=== PATIENT | male | born 1965 | race African-American/Black ===

== ENCOUNTER 2016-12-29 20:32 | Inpatient (IN) | payer OTHER ==
[~2016-12-29] VITALS: Ht 177.8 cm; Wt 77.4 kg
--- NOTE | 2016-12-29 20:35 | NUR ---
BIBA ON PEER APPROX 40 100MG SEROQUEL TABS AND +ETOH. UPON ARRIVAL PT IN HANDCUFFS, DROWSY BUT AROUSABLE, EASILY AGITATED. YELLING PROFANITIES AT STAFF WITH SLURRED SPEECH. PER EMS, PT HIGHLY COMBATIVE AND SPITTING. UNABLE TO OBTAIN FURTHER HPI FROM PT
--- NOTE | 2016-12-29 20:39 | ED AMS/SEIZURE/WEAK/DIZZY ---
History of Present Illness General Chief Complaint: ETOH/Drug Related Complaint Stated Complaint: BIBA SI, COMBATIVE, +ETOH Source: patient Exam Limitations: no limitations Vital Signs & Intake/Output Vital Signs & Intake/Output Vital Signs Date Time Temp Pulse Resp B/P B/P Pulse O2 O2 Flow FiO2 Mean Ox Delivery Rate 12/30 0300 96.3 77 18 139/82 05 0248 30 12/30 0048 98.6 96 18 140/85 100 Ventilator 40% 12/30 0039 40 12/30 0018 98.7 109 18 136/89 100 Ventilator 40% 12/29 2253 127 28 123/85 98 BIPAP 40% 12/29 2230 99 BIPAP 40% 12/29 2223 133 32 131/85 99 Non 100% ReBreather 12/29 2217 140 99 12/29 2152 141 22 143/96 98 Non 100% ReBreather 12/30 2119 100 24 129/81 99 Non 100% ReBreather 12/29 2052 98.1 107 16 137/91 99 Nasal 2.0L Cannula 12/29 2044 100 Non ReBreather 12/30 2035 108 16 100 Non ReBreather ED Intake and Output 12/30 0000 12/29 1200 Intake Total Output Total 50 Balance -50 Output, Urine 50 Allergies Coded Allergies: Penicillins (UNKNOWN 08/04/16) Triage Nurses Notes Reviewed? yes Onset: Gradual Duration: hour(s): Timing: single episode today Injury Environment: home Severity: moderate Modifying Factors: Improves With: rest. Associated Symptoms: agitation HPI: 51 yo gentleman presents with mental status change. Per the medics, "He called a friend who said he wanted to kill himself." Pt was found with empty "nips" of liquor and an empty pill bottle of seroquel with approximately 40 pills of 100mg each left based on his date of fill. Per the medics, "He was spitting at us and was really agitated." Past History Travel History Traveled to [place] past 21 day No Medical History Any Pertinent Medical History? see below for history Psychiatric: anxiety, depression, psychosis Surgical History Surgical History: non-contributory Psychosocial History Who do you live with Patient/Self What is your primary language French Family History Hx Contributory? No Review of Systems Review of Systems Constitutional: Reports: no symptoms. EENTM: Reports: no symptoms. Respiratory: Reports: no symptoms. Cardiovascular: Reports: no symptoms. GI: Reports: no symptoms. Genitourinary: Reports: no symptoms. Musculoskeletal: Reports: no symptoms. Skin: Reports: no symptoms. Neurological/Psychological: Reports: no symptoms. Hematologic/Endocrine: Reports: no symptoms. Immunologic/Allergic: Reports: no symptoms. All Other Systems: Reviewed and Negative Physical Exam Physical Exam General Appearance: well developed/nourished, mild distress, intoxicated, agitated, belligerent, arms flailing Head: atraumatic, normal appearance Eyes: Bilateral: normal appearance. Ears, Nose, Throat: normal pharynx, normal ENT inspection Neck: normal inspection, supple, full range of motion Respiratory: normal breath sounds, chest non-tender, no respiratory distress, quiet respiration, lungs clear Cardiovascular: regular rate/rhythm Gastrointestinal: normal bowel sounds, soft, non-tender, no organomegaly Back: normal inspection, normal range of motion Extremities: normal range of motion, evidence of injury Neurologic/Psych: no motor/sensory deficits, awake, alert Skin: intact, normal color, warm/dry Core Measures ACS in differential dx? No CVA/TIA Diagnosis: No Severe Sepsis Present: No Septic Shock Present: No Progress Differential Diagnosis: alcohol intoxication, polysubstance abuse vs other. Plan of Care: Orders Procedure Date/time Status Nothing by Mouth 12/30 B Active EKG 12/30 0800 Active ARTERIAL BLOOD GAS (GEN) 12/30 0600 Active CBC WITHOUT DIFFERENTIAL 12/30 0600 Complete Wound Care/Dressing 12/30 033 Active Weight 12/30 0333 Active VTE Mechanical Prophylaxis 12/30 033 Active Vital Signs 12/30 033 Active Turn and Reposition 12/30 033 Active Drains/Tubes 12/30 033 Active Teach/Educate 12/30 033 Active Skin Integrity Protocol 12/30 033 Active Skin/Pressure Ulcer Assess (Sk 12/30 033 Active Precautions 12/30 033 Active Pain Treatment and Response 12/30 033 Active Nutritional Intake, Monitor 12/30 033 Active Isolation 12/30 033 Active CIWA 12/30 033 Active Patient Care Conference 12/30 0333 Active Activity/Ambulation 12/30 033 Active TROPONIN LEVEL 12/30 030 Active ICU LAB BUNDLE 12/30 030 Active CREATINE PHOSPHOKINASE 12/30 030 Active EKG 12/30 0300 Active VENTILATOR PARAMETERS 12/30 0253 Complete VRE ACTIVE SURVIELLANCE 12/30 0239 Active ACTIVE SURVEILLANCE NARES 12/30 0239 Active LACTIC ACID 12/30 0135 Complete ARTERIAL BLOOD GAS (GEN) 12/30 0130 Active CIWA 12/30 0110 Active LOWER RESPIRATORY CULTURE 12/30 0049 Active URINALYSIS 12/30 0027 Complete Pathway - chart 12/30 0024 Active Lab Add-on Test 12/30 0022 Active VENTILATOR PARAMETERS 12/30 0015 Complete EKG 12/30 0011 Active CULTURE,URINE 12/30 0010 Active TRC EVALUATION (GEN) 12/30 0009 Active OXYGEN SETUP (GEN) 12/30 0009 Active Saline Lock 12/30 0009 Active Pathway - chart 12/30 0009 Active House Staff 12/30 0009 Active XRY-PORTABLE CHEST XRAY 12/30 UNK Active Lab Add-on Test 12/30 UNK Active VTE Mechanical Prophylaxis 12/30 UNK Complete Patient Safety Monitor 12/30 UNK Complete Seizure Precautions 12/30 UNK Active Restraint- Medical 12/30 UNK Active Nursing Misc 12/30 UNK Active NIH Stroke Scale 12/30 UNK Active NGT 12/30 UNK Active Braden Coma Scale 12/30 UNK Active Eckert, Insertion/Removal/Asses 12/30 UNK Active ARTERIAL BLOOD GAS (GEN) 12/29 2315 Active Patient Data 12/29 2303 Active Intake & Output 12/29 2256 Active Saline Lock 12/29 225 Active Misc Message 12/29 2254 Active ED Holding Orders 12/29 2254 Active Vital Signs 12/29 2254 Active Code Status 12/29 2254 Active Admit to inpatient 12/29 2253 Active LACTIC ACID 12/29 2235 Complete Add-on Test (ER Only) 12/29 2229 Active ARTERIAL BLOOD GAS (GEN) 12/30 2135 Complete Restraint- Discontinue 12/29 2129 Active PHOSPHORUS 12/29 2049 Complete MAGNESIUM 12/29 2049 Complete CREATINE PHOSPHOKINASE 12/29 2049 Complete Restraint- Behavioral (Order) 12/29 2044 Complete Continuous Observation Monitor 12/29 2044 Complete ED CRISIS PSYCH CONSULT 12/29 2044 Active URINE DRUG SCREEN FOR ER ONLY 12/29 2038 Complete ACETOMINOPHEN 12/29 2038 Complete TROPONIN LEVEL 12/29 2038 Complete SALICYLATE 04/30 2039 Complete ETHANOL 12/29 2038 Complete COMPREHENSIVE METABOLIC PANEL 12/29 2038 Complete CBC WITHOUT DIFFERENTIAL 12/29 2038 Complete EKG 12/29 2038 Active BIPAP 12/29 UNK Complete Current Medications Sig/Earline Start time Last Medication Dose Stop Time Status Admin Pantoprazole Sodium 40 MG DAILY 12/30 1000 AC (Protonix) Heparin Sodium 5,000 UNIT Q8 12/30 0600 AC (Porcine) Acetaminophen 1,000 MG Q6P PRN 12/30 0030 AC (Ofirmev) Lorazepam 2 MG Q4P PRN 12/30 0030 AC (Ativan) Sodium Chloride 1,000 ML Q13H 12/30 003 AC 12/30 (Normal Saline 0.9%) 0046 Laboratory Tests 12/30/16 030: Troponin I Cancelled 12/30/16 030: Lactic Acid 2.4 H 12/30/16 030: Anion Gap 13, Estimated GFR > 60, Glucose 93, Calcium 8.0 L, Phosphorus 3.0, Magnesium 2.0, Total Bilirubin 0.6, AST 24, ALT 31, Creatine Kinase 549 H, Troponin I Pending, Albumin 3.3 L, CBC w Diff NO MAN DIFF REQ, RBC 4.06 L, MCV 101.7 H, MCH 34.2 H, RDW 13.0, MPV 8.0, Gran % 63.9, Lymphocytes % 24.8, Monocytes % 6.3, Eosinophils % 4.7, Basophils % 0.3, Absolute Granulocytes 4.2, Absolute Lymphocytes 1.6, Absolute Monocytes 0.4, Absolute Eosinophils 0.3, Absolute Basophils 0, PUBS MCHC 33.7 12/30/16 0205: pH 7.31 L, pCO2 43, pO2 197 H, HCO3 21, ABG O2 Sat (Measured) 97.0, P-50 (Temp Corrected) Y, Carboxyhemoglobin 1.6, O2 Concentration % 40%, Temperature 98.7, Respiration Rate 18, O2 Delivery Method ESPRIT, Vent Mode AC, Expiratory Pressure 5, Tidal Volume 500, Phlebotomy Draw Site RIGHT RADIAL 12/30/16 0110: Urine Color STRAW, Urine Clarity CLEAR, Urine pH 5.5, Ur Specific [place] 1.025, Urine Protein NEG, Urine Ketones NEG, Urine Nitrite NEG, Urine Bilirubin NEG, Urine Urobilinogen 0.2, Ur Leukocyte Esterase NEG, Ur Microscopic SEDIMENT EXAMINED, Urine RBC RARE, Urine WBC RARE, Ur Epithelial Cells RARE, Urine Bacteria FEW H, Urine Hemoglobin LARGE H, Urine Glucose NEG 12/30/16 0014: Phosphorus Cancelled 12/29/16 2319: Lactic Acid 2.2 H 12/29/162309: pH 7.36, pCO2 38, pO2 121 H, HCO3 21, ABG O2 Sat (Measured) 96.0, P-50 (Temp Corrected) Y, Carboxyhemoglobin 2.4, O2 Concentration % 40%, Temperature 98.0, Respiration Rate 28, O2 Delivery Method BIPAP, Vent Mode ST, Expiratory Pressure 6, Inspiratory Pressure 20, Phlebotomy Draw Site RIGHT RADIAL 12/29/162144: pH 7.22 *L, pCO2 65 *H, pO2 183 H, HCO3 26, ABG O2 Sat (Measured) 99.0, P-50 ( Temp Corrected) Y, Carboxyhemoglobin 3.2, O2 Concentration % 100, Temperature 98.0, O2 Delivery Method NRB, Phlebotomy Draw Site RIGHT RADIAL 12/29/162101: Urine Opiates Screen < 100.00, Methadone Screen < 40, Barbiturate Screen < 60, Ur Phencyclidine Scrn < 6.00, Amphetamines Screen < 100, U Benzodiazepines Scrn > 800 H, Urine Cocaine Screen < 50, Urine Cannabis Screen > 80.00 H 12/29/162049: Anion Gap 16, Estimated GFR > 60, BUN/Creatinine Ratio 11.3, Glucose 97, Calcium 9.2, Phosphorus 3.2, Magnesium 2.4 H, Total Bilirubin 0.6, AST 29, ALT 30, Alkaline Phosphatase 62, Creatine Kinase 568 H, Troponin I < 0.01, Total Protein 7.6, Albumin 4.5, Globulin 3.1, Albumin/Globulin Ratio 1.5, CBC w Diff NO MAN DIFF REQ, RBC 4.69 L, MCV 100.0 H, MCH 34.2 H, RDW 12.7, MPV 8.0, Gran % 48.0, Lymphocytes % 38.9, Monocytes % 6.0, Eosinophils % 6.5 H, Basophils % 0.6, Absolute Granulocytes 3.2, Absolute Lymphocytes 2.6, Absolute Monocytes 0.4 , Absolute Eosinophils 0.4, Absolute Basophils 0, PUBS MCHC 34.3, Salicylates < 1.0, Acetaminophen < 10.0 L, Serum Alcohol 215.0 Microbiology 12/30 0258 UPPER RESP: Surveillance Culture - RECD 12/30 0258 GI: Surveillance Culture - RECD 12/30 0115 URINE ROUT: Urine Culture - RECD 12/31 39 LOWER RESP: Respiratory Culture - RECD 12/31 39 LOWER RESP: Gram Stain - RECD Diagnostic Imaging: Viewed by Me: Radiology Read, CT Scan. Discussed w/RAD: Radiology Read, CT Scan. Radiology Impression: head ct... neg.. full report below. CXR Impression: no acute abnormality, no infiltrates, normal size heart, normal mediastinum Initial ED EKG: sinus tachycardia Comments: PATIENT: JOSE ALFREDO RODRIGUES PRESENT AGE: 51 PATIENT ACCOUNT NO: [id number] : 65 LOCATION: [facility] ORDERING PHYSICIAN: JACKY PEREZ MD SERVICE DATE: 12/29/16 EXAM TYPE: CAT - CT HEAD WO IV CONTRAST EXAMINATION: CT HEAD WITHOUT CONTRAST CLINICAL INFORMATION: Mental status change COMPARISON: None TECHNIQUE: Contiguous axial imaging was performed from the skull base to vertex without intravenous administration of contrast. DLP: 610.15 mGy-cm FINDINGS: There is no evidence of acute intracranial hemorrhage or territorial infarction. No abnormal mass effect or midline shift is seen. Nascimento to white matter differentiation is well preserved. No extra-axial fluid collections are identified. The ventricles are normal in size. There is no abnormal attenuation within the brain parenchyma. The osseous structures and soft tissues are normal. There is extensive opacification of the ethmoid air cells bilaterally. The mastoid air cells are well-aerated. IMPRESSION: No acute intracranial pathology. DICTATED BY: AQUILES CHARLES MD DATE/TIME DICTATED:12/30/16322 WATCH AND CLOCK REPAIR CLERK:WESLEY DATE/TIME TRANSCRIBED:12/30/16322 CONFIDENTIAL, DO NOT COPY WITHOUT APPROPRIATE AUTHORIZATION. <Electronically signed in Other Vendor System> SIGNED BY: AQUILES CHARLES MD 12/30/16328 PATIENT: JOSE ALFREDO RODRIGUES PRESENT AGE: 51 PATIENT ACCOUNT NO: [id number] : 65 LOCATION: [facility] ORDERING PHYSICIAN: JACKY PEREZ MD SERVICE DATE: 12/29/16 EXAM TYPE: RAD - XRY-PORTABLE CHEST XRAY EXAMINATION: XR PORTABLE CHEST CLINICAL INFORMATION: Dyspnea. COMPARISON: None TECHNIQUE: Portable frontal view of the chest was obtained. 10:36 PM FINDINGS: A portion of the right side of the chest is not included in study limiting study. No acute change of the visualized chest. Lungs are clear. No pulmonary vascular congestion. Heart size is normal. Cardiac and mediastinal contours are normal. IMPRESSION: No acute abnormality of the chest. DICTATED BY: ANAIS WIGGINS MD DATE/TIME DICTATED:12/29/162246 WATCH AND CLOCK REPAIR CLERK:WESLEY DATE/TIME TRANSCRIBED:12/29/162246 CONFIDENTIAL, DO NOT COPY WITHOUT APPROPRIATE AUTHORIZATION. <Electronically signed in Other Vendor System> SIGNED BY: ANAIS WIGGINS MD 12/29/162250 Departure Departure Disposition: STILL A PATIENT Condition: Stable Clinical Impression Primary Impression: Polysubstance overdose Secondary Impressions: Respiratory acidosis Referrals: UNKNOWN (PCP) Departure Forms: Customer Survey General Discharge Information Admission Note Spoke With: KYLE GOODWIN MD Documentation of Exam: Documentation of any treatments & extenuating circumstances including Concerns Regarding Discharge (functional status, medication knowledge or non-compliance, living conditions, etc.) that warrant an admission rather than observation: pt with respiratory acidosis, polysubstance abuse (benzos, etoh, likely seroquel )... now tolerating bipap, otherlabs benign.... discussed with poison control... seroquel peaks 2 hours, with 1/2 life of 3-6 hours, although pharmacokinetics are disrupted given the amount of his suspected overdose. will repeat abg. Critical Care Note Critical Care Note Critical Care Time: 30-74 min
--- NOTE | 2016-12-29 20:45 | NUR ---
PT MEDICATED WITH 10MG ZYPREXA IM IN THE LEFT THIGH.
--- NOTE | 2016-12-29 20:45 | NUR ---
PT STATED TO MULTIPLE STAFF MEMBERS "IF YOU LET ME GO I WILL DO SOMETHING BAD" PT INCREASINGLY AGITATED, MOVING LEGS IN A KICKING MOTION TOWARDS EMS. 4 POINT HARD RESTRAINTS INITIATED PER DR. PEREZ
[2016-12-29 20:56] LABS: ABSOLUTE BASOPHIL COUNT 0 /CUMM (0.0-0.2); ABSOLUTE EOSINOPHIL COUNT 0.4 /CUMM (0.0-0.7); ABSOLUTE GRANULOCYTE CT 3.2 /CUMM (1.4-6.5); ABSOLUTE LYMPH COUNT 2.6 /CUMM (1.2-3.4); ABSOLUTE MONOCYTE COUNT 0.4 /CUMM (0.10-0.60); BASOPHIL % 0.6 % (0.0-2.0); EOSINOPHIL % 6.5 % (0-5); HEMATOCRIT 46.9 % (42-52); MEAN CORPUSCULAR HGB 34.2 PG (27.0-31.0); MEAN CORPUSCULAR HGB CONC 34.3 G/DL (33.0-37.0); PLATELET COUNT 202 /CUMM (130-400); RBC DISTRIBUTION WIDTH 12.7 % (11.5-14.5); RED BLOOD CELL CT 4.69 /CUMM (4.70-6.10); WHITE BLOOD CELL COUNT 6.6 /CUMM (4.8-10.8)
--- NOTE | 2016-12-29 21:43 | NUR ---
2124 PT WITH POOR AIR EXCHANGE. MEDICATED WITH 0.8 MG NARCAN WITH NO EFFECT, REMAINS AROUSABLE TO BRISK TACTILE STIMULATION ONLY, FOLLOWED UP WITH ADDITIONAL 1.2 MG NARCAN WITH NO IMPROVEMENT. NASAL TRUMPET PLACED IN LEFT NARE WITH NO IMPROVEMENT. DR PEREZ AT BEDSIDE. 2139 PT MEDICATED WITH ADDITIONAL 2 MG NARCAN. HR UP TO 140'S NO IMPROVEMENT IN AIR EXCHANGE. JAW THRUST MANEUVER WITH GOOD EFFECT. BETTER AIR EXCHANGE HOB REMAINS ELEVATED. ABG DONE BY RT
--- NOTE | 2016-12-29 22:00 | NUR ---
ORALPHARYNGEAL AIRWAY PLACED WITH LITTLE TO NO EFFECT. DR. PEREZ MADE AWARE. JAW THRUST CONTINUES TO BE EFFECTIVE. PT PLACED ON BIPAP, 20/6 RR 28. IMPROVED AIR FLOW. PT REPOSITIONED IN HIGH FOWLERS WITH GOOD EFFECT. REMAINS OBTUNDED
--- NOTE | 2016-12-29 22:44 | NUR ---
PTS 1 OF 1 BELONGINGS BAG PLACED IN CLOSET AND LABELED, COPY OF PEC IN PAPER CHART, PEC PLACED IN PEER BOX AT QUARTER INSPECTOR
--- NOTE | 2016-12-29 22:51 | RADIOLOGY REPORT ---
EXAMINATION: XR PORTABLE CHEST CLINICAL INFORMATION: Dyspnea. COMPARISON: None TECHNIQUE: Portable frontal view of the chest was obtained. 10:36 PM FINDINGS: A portion of the right side of the chest is not included in study limiting study. No acute change of the visualized chest. Lungs are clear. No pulmonary vascular congestion. Heart size is normal. Cardiac and mediastinal contours are normal. IMPRESSION: No acute abnormality of the chest.
--- NOTE | 2016-12-29 23:16 | NUR ---
PER DR PEREZ PT DOES NOT NEED AN A SECOND SITE FOR IV ACCESS.
--- NOTE | 2016-12-29 23:22 | NUR ---
DR. ARIZMENDI AT BEDSIDE
--- NOTE | 2016-12-29 23:33 | NUR ---
THIS RN RECIEVED REPORT FROM HENRIK TYLER, DR GARCIA AND DR GOODWIN IN FOR EVAL
--- NOTE | 2016-12-29 23:33 | NUR ---
PT MEDICATED WITH NS LITER #1 BOLUS INFUSING.
--- NOTE | 2016-12-29 23:42 | NUR ---
CRITICAL TEST RESULTS [id number] JOSE ALFREDO RODRIGUES 51 M TESTS AND RESULTS: LACTIC 2.2 Results received and read back by: KURT ARRINGTON Results received date and time: 12/29/16 2342 The following provider was notified of the results, and read the results back: [facility] Notified date and time: 12/29/16 at 2342
--- NOTE | 2016-12-29 23:47 | NUR ---
HOUSE STAFF IN FOR EVAL
[2016-12-30] VITALS (10 sets, daily range): BP systolic 118–144; BP diastolic 64–90
--- NOTE | 2016-12-30 00:11 | NUR ---
Emergency Dept UC Admit Note: To be admitted to [facility] by DR. GOODWIN with RESP FAILURE as the diagnosis, to ICU [id number] location. Nursing Commercial Artist and admitting notified 12/30/16 at 0798
--- NOTE | 2016-12-30 00:19 | NUR ---
PT INTUBATED BY RESIDENT SHANELLE, ETT 8.0 AT 24 AT RIGHT LIP. RATE 18, 500 TIDAL VOLUME, 40% 02 AND [address] CARLY RT AT BEDSIDE
--- NOTE | 2016-12-30 00:26 | History & Physical ---
ADELFO BUSTAMANTE,[facility] 12/30/16 0025: General Information and HPI Statement: I have seen and personally examined JOSE ALFREDO RODRIGUES and documented this H&P. The patient is a 51 year old M who presented with a patient stated chief complaint of [unresponsiveness]. Source of Information: old records, EMS Exam Limitations: unable to give history, intoxication History of Present Illness: Mr. Rodrigues is 51-year-old male with past medical history significant for depression BIBA after he was found unresponsive in his home. Patient's friend called EMS to report that Mr. Rodrigues called him and told him "he wanted to kill himself." Patient was found in bed and next to him there were empty "nips" of liquor and an empty pill bottle of seroquel with approximately 40 pills of 100mg. Patient has no contact information and no further history was obtainable. Allergies/Medications Allergies: Coded Allergies: Penicillins (UNKNOWN 08/04/16) Past History Travel History Traveled to [place] past 21 day No Medical History Any Pertinent Medical History? unobtainable Psychiatric: anxiety, depression, psychosis Isolation History: Standard Surgical History Surgical History: non-contributory Past Family/Social History Psychosocial History Past Psychosocial History Unobtainable at this time Review of Systems Review of Systems Constitutional: Reports: see HPI. Exam & Diagnostic Data Last 24 Hrs of Vital Signs/I&O Vital Signs Date Time Temp Pulse Resp B/P B/P Pulse O2 O2 Flow FiO2 Mean Ox Delivery Rate 12/30 0048 98.6 96 18 140/85 100 Ventilator 40% 12/30 0039 40 12/30 0018 98.7 109 18 136/89 100 Ventilator 40% 12/29 2252 127 28 123/85 98 BIPAP 40% 12/29 2229 99 BIPAP 40% 12/29 2222 133 32 131/85 99 Non 100% ReBreather 12/29 2217 140 99 12/29 2152 141 22 143/96 98 Non 100% ReBreather 12/30 2119 100 24 129/81 99 Non 100% ReBreather 12/29 2052 98.1 107 16 137/91 99 Nasal 2.0L Cannula 12/29 2044 100 Non ReBreather 12/30 2035 108 16 100 Non ReBreather Intake & Output 12/30 0800 12/30 0000 04/30 1600 Intake Total Output Total 50 Balance -50 Output, Urine 50 Physical Exam General Appearance avarage built afracian polish male unresponsive to painful stimulus Skin No Rashes, No Breakdown, No Significant Lesion Skin Temp/Moisture Exam: Warm/Dry HEENT Atraumatic, pinpoint pupils Neck Supple, No JVD Lymphatic no cervical lymphadenopathy Cardiovascular Regular Rate, Normal S1, Normal S2, No Murmurs Lungs Clear to Auscultation, Normal Air Movement Abdomen Normal Bowel Sounds, Soft, No Tenderness Neurological No reflexes Babinski sign negative Extremities No Clubbing, No Cyanosis, No Edema, Normal Pulses Assessment/Plan Assessment: Mr. Rodrigues is 51-year-old male with past medical history significant for depression BIBA after he was found unresponsive in his home which is apparently a suicide attempt. On admission Vital signs temperature 98.1, pulse 107, blood pressure 137/91, respirations 16 on nonrebreather 2 L saturation 100% Labs WBC 6.6, H&H 16.1/46.9, platelet 202, sodium 147, potassium 3.9, chloride 109, bicarbonate 22, BUN/creatinine 9/0.8, glucose 97, anion gap 16, liver function test within normal, creatinine kinase 568, urine toxicology positive for benzo and cannabis, ABG on admission pH 7.22, carbon dioxide 65, oxygen 183 Imaging chest x-ray didn't show any acute abnormality of the chest Problem list #Suicide attempt ingestion of 40 tabs of Seroquel #Acute hypercapnic respiratory failure due to intoxication -Admit to ICU -Patient had Narcan IV total of 5 mg in ED in addition to olanzapine 10 mg -We will intubated to secure airway -Repeat ABG in the a.m. -Neuro exam Q4 hours -OJ tube placement -Repeat EKG to ensure proper placement -Eckert catheter placement -Serial EKG every 8 to monitor QTC -ICU bundle and CBC in a.m. -Obtain magnesium and phosphorus now -Start proton pump inhibitor 40 mg IV -Trend lactic acidosis mostly alcohol-related -Patient is unresponsive to painful stimuli, once he is awake start Ativan 2 mg IV every 6 -Consider banana bag -IV fluid normal saline rate of 100 mL/h -Consider echocardiogram given history of alcoholism to rule out alcoholic cardiomyopathy -Obtain CT head #Code full #Diet nothing by mouth #DVT prophylaxis heparin subcutaneous As Ranked By This Provider Problem List: 1. Depression 2. Suicide attempt by drug ingestion Core Measures/Miscellaneous Acute Coronary Syndrome ACS Diagnosis: No Cerebrovascular Accident CVA/TIA Diagnosis: No Congestive Heart Failure CHF Diagnosis: No Venous Thromboembolism VTE Risk Factors: Age > 40 [facility] prophylaxis d/t: No contraindications No VTE Pharm Prophylaxis d/t: No contraindications VTE Diagnosis: No VTE Type: NONE VTE Confirmed by (Test): NONE Severe Sepsis Severe Sepsis Present: No Septic Shock Septic Shock Present: No Miscellaneous Documentation Attending Case Discussed With: KYLE GOODWIN MD Primary Care Physician: UNKNOWN Patient sees these Specialists Unknown Level of Patient Care: Critical Care (CRI) OLE JOHNSON 12/30/16 0110: Resident Review Statement Resident Statement: examined this patient, discussed with post graduate internship, agreed with post graduate internship, discussed with nursing Other Findings: is a 51 yo man with PMHx significant for schizophrenia, delusion, depression, anxiety, suicidal ideation last was 2015 with admission to [facility] with a c/o of AMS. When we arrived to assess and examin the patient he was unresponsive, sternal was done at bedside but he was unresponsive at all, he was on Bipap when admitting team arrived. Based on the information that we provided from the nursing stuff and ED physician patient was brought by EMS, Per the medics, "He called a friend who said he wanted to kill himself."Pt was found with empty "nips" of liquor and an empty pill bottle of seroquel with approximately 40 pills of 100mg each left. According to the nursing stuff, he was combative on arrival and he was on agonal breathing. He was medicated with a total of 4mg IV Narcan with no improvement, he was also given 10mg IM Zyprexa. ABG was done at ED which showed acute hypercarbic respiratory failure (7.22, 65, 183, 26) after Bipap ABG improved to (7.36, 38, 121, 21) However, he remains unresponsive and his airway unsecure, both eye was pinpoint, nonreactive to light, the decision was made to intubate the patient, project design engineer and respiratory therapiest was called, patient intubated successfuly, CXR confirmed the location of ET tube. Ventilatory setting AC mode, 18, 500, 40, 5. Off note, there is no contact information provided for a family member or a friend to get more information about patient's current issue. Pertinent labs: CK: 568, Troponin 1st set -ve Toxicology:+ve for benzo, and cannabis, alcohol level 215. LA: 2.2 Imaging, examination as above Patient ingested seroquel which is strongly associated with respiratory depression, depressed mental status and hypotension compared to other antipsychotic Assessment: #Acute hypercarbic respiratory failure 2/2 benzo/seroquel overdose #Metabolic encephalopathy #Lactic acidosis #Mildly elevated CK #Suicidal ideation #Hx. of schizophrenia, delusion, depression and anxiety Plan: Admission to ICU Neurocheck Q4hr Will order EKG for now, at 3am and 8am to monitor QTc Will continue hydration with IV NS @75ml/min Will order 2mg IV Ativan Q4 PRN (For sedation) Will repeat all labs at am (ICU lab bundle, CBC, CK, Mg, Po4) Cycle troponin and EKG Intensive care team consult at am Will trend LA IV protonix DVT ppx. SC heparin Full code [id number] 12/30/16 0253: Attending MD Review Statement Attending Statement Attending MD Statement: examined this patient, discuss w/resident/PA/BAG TURNER, agreed w/resident/PA/BAG TURNER, reviewed EMR data (avail), reviewed images, amended to note Attending Assessment/Plan: CC: SI, COMBATIVE PMH : unknown ? depression Patient was brought in through EMS when patient's friend called in for patient having suicidal ideation. Patient may have Taken approximately 40 tablets of 100 mg Seroquel each, along with alcohol. When patient was brought in ER he was drowsy, agitated, combative, yelling at staff, spitting and slurred speech. When we saw patient he was unresponsive to sternal rub, no further history available. Vitals: Afebrile, pulse initially 100-140, blood pressure 108/80, improved with hydration to 143/96, patient was started on nonrebreather was having apneic spells in between. On exam: Pinpoint pupils, not responding to multiple sternal drops, no JVD, no lymphadenopathy, CVS: S1-S2, RRR, tachycardia. RS: Clear to auscultate bilaterally. Abdomen: Soft, nontender, nondistended bowel sounds present. Labs: WBC 6.6, hemoglobin 16.1, MCV 100, platelet 202, sodium 147, chloride 109, bicarbonate 22, anion gap 16, creatinine 0.8, glucose 97, lactate 2.2, creatinine kinase 568 U tox positive for benzodiazepines, THC. Serum alcohol 215 ABG at arrival 7.22/65/183/26 on NRB One hour on BiPAP 7.36/38/121/21 on 40%, rr 28 , 20/6 CXR: No acute abnormality A and P According to charts and EMS report, patient had suicidal ideation and attempt was found with empty bottle of Seroquel, alcohol around him. In ER patient was very aggressive, agitated, combative, spitting on people's faces. He was given 3 doses of naloxone and one dose of 10 mg olanzapine without much response. Poison control was called from ER. When we saw the patient he was on BiPAP, his head stabilized with tapes so that he doesn't move with BiPAP as he was having apneic spells with head movement. He had pinpoint pupils and was not responding to sternal rub. Called anesthesia for intubation to protect his airways. When BiPAP was removed lot of secretions around his mouth, patient obviously not protecting his airway and secretions. Intubation was uneventful. Patient's blood pressure was in 100s / 60s with heart rate in 140s, responded to 2 L IV NS bolus. # Hypercapnic respiratory failure # Acute intoxication # Toxic Encephalopathy # Suicidal ideation # rhabdomyolysis - Admit to ICU - Close monitoring of vitals - Continue vent setting AC at 500/18/40% with PEEP of 5 - Repeat ABG in one hour, increase or decrease the respiratory rate according to pH, then repeat ABG at 6 AM - Place OG tube, Eckert catheter - Post intubation x-ray - Continue maintenance fluid normal saline at 75- 100 mL after 2 L bolus - IV Protonix 40 mg daily, held in elevation to 30, oral care, chest x-ray in a.m. - If fever spike, consider aspiration as possibility and start Unasyn if required - Repeat lactic acid -Strict I's and O's - One-on-one sitter - Neurochecks - Seizure precaution - DVT prophylaxis - When necessary Ativan 1-2 mg pushes if patient wakes up on ventilator - If more than 2 pushes required start Ativan drip - EKG every 4 hour 3 for QTc interval - CBC, BMP, LFT, CPK in a.m. - Magnesia and phosphorus to the sample in lab now - Consult critical care TTS 45 min
--- NOTE | 2016-12-30 00:46 | NUR ---
PT MEDICATED WITH NS LITER #3 INFUSING AT 75ML/HR PER EMAR.
--- NOTE | 2016-12-30 01:07 | NUR ---
18 AMHARIC PORTILLO PLACED BY THIS RN WITH URINE OUTPUT 445ML/HR. URINE TRIO SENT TO LAB BY THIS RN.
--- NOTE | 2016-12-30 01:23 | NUR ---
SECOND IV EST #18 LEFT FOREARM.
--- NOTE | 2016-12-30 01:32 | RADIOLOGY REPORT ---
EXAMINATION: XR PORTABLE CHEST CLINICAL INFORMATION: Shortness of breath, unresponsive, assess endotracheal tube placement COMPARISON: 12/29/2016 TECHNIQUE: Portable frontal view of the chest was obtained. FINDINGS: Endotracheal tube tip lies approximately 4 cm above the kaleb. Lung volumes are symmetric. Linear left basilar atelectasis is noted. No dense consolidation is seen. No appreciable pneumothorax, though the left apex is not fully included on the image. No significant pleural effusion. The cardiac silhouette is mildly prominent, which may be accentuated by technique. No acute osseous findings are seen. IMPRESSION: Endotracheal tube tip approximately 4 cm above the kaleb. Linear left basilar atelectasis.
--- NOTE | 2016-12-30 02:14 | NUR ---
REPORT GIVEN TO HENRIK LUNA, THIS RN WILL TRANSPORT PT TO CT SCAN THEN UP TO THE FLOOR.
--- NOTE | 2016-12-30 02:56 | Admission Certification ---
Admission Certification Certification Statement - As attending physician, I certify that at the time of - admission, based on clinical presentation, severity of - symptoms, need for further diagnostic testing and - therapeutic interventions, and risk of adverse outcomes - without in-hospital treatment, in my clinical assessment, - this patient requires an acute hospital stay for a minimum - of two nights or longer. I have also considered psychsocial - factors such as support system, advanced age, financial - issues, cognitive issues, and failed out-patient treatments, - past re-admission history, safety of patient, and lack of - compliance as applicable. Specific rationale supporting this admission is: Acute respiratory failure secondary to intoxication, suicidal ideation, toxic encephalopathy
[2016-12-30 03:20] LABS: ABSOLUTE BASOPHIL COUNT 0 /CUMM (0.0-0.2); ABSOLUTE EOSINOPHIL COUNT 0.3 /CUMM (0.0-0.7); ABSOLUTE GRANULOCYTE CT 4.2 /CUMM (1.4-6.5); ABSOLUTE LYMPH COUNT 1.6 /CUMM (1.2-3.4); ABSOLUTE MONOCYTE COUNT 0.4 /CUMM (0.10-0.60); BASOPHIL % 0.3 % (0.0-2.0); EOSINOPHIL % 4.7 % (0-5); GRANULOCYTE % 63.9 % (42.2-75.2); MEAN CORPUSCULAR HGB 34.2 PG (27.0-31.0); MEAN CORPUSCULAR HGB CONC 33.7 G/DL (33.0-37.0); MEAN CORPUSCULAR VOLUME 101.7 FL (80.0-94.0); PLATELET COUNT 166 /CUMM (130-400); RED BLOOD CELL CT 4.06 /CUMM (4.70-6.10); WHITE BLOOD CELL COUNT 6.6 /CUMM (4.8-10.8)
[2016-12-30 03:23] LABS: HEMATOCRIT 41.3 % (42-52)
--- NOTE | 2016-12-30 03:29 | CT SCAN REPORT ---
EXAMINATION: CT HEAD WITHOUT CONTRAST CLINICAL INFORMATION: Mental status change COMPARISON: None TECHNIQUE: Contiguous axial imaging was performed from the skull base to vertex without intravenous administration of contrast. DLP: 610.15 mGy-cm FINDINGS: There is no evidence of acute intracranial hemorrhage or territorial infarction. No abnormal mass effect or midline shift is seen. Nascimento to white matter differentiation is well preserved. No extra-axial fluid collections are identified. The ventricles are normal in size. There is no abnormal attenuation within the brain parenchyma. The osseous structures and soft tissues are normal. There is extensive opacification of the ethmoid air cells bilaterally. The mastoid air cells are well-aerated. IMPRESSION: No acute intracranial pathology.
--- NOTE | 2016-12-30 03:52 | NUR ---
@0245, PT ARRIVED FROM ER VIA STRETCHER AND ACCOMPANIED BY ER NURSE,RT AND TECH.PT APPEAR UNRESPONSIVE.PT PLACED ON CONT MONITOR AND TRANSFER TO ICU BED WITH NO ISSUES.PUPILS FIXED.MOVES JODIE EXTREMITIES SPORATIC AND NOT FOLLOWING COMMANDS.ORIENTED PT TO SURROUNDINGS.AVSS.+PP.VENTED WITH SATS >98%.HOB ELEVATED.ORAL CARE DONE.LABS SENT.EKG DONE.PIV INTACT.IVF CONT VIA PIV SITE.NPO.OGT TO SXN.PORTILLO PATENT WITH GOOD UO.NO PRESSURE ULCER NOTED AND SKIN WARM TO TOUCH.
--- NOTE | 2016-12-30 06:12 | RADIOLOGY REPORT ---
EXAMINATION: XR PORTABLE CHEST CLINICAL INFORMATION: Intubated COMPARISON: 12/30/2016 TECHNIQUE: Portable frontal view of the chest was obtained. FINDINGS: Endotracheal tube tip lies approximately 4 cm above the kaleb. Enteric tube courses in the stomach. Lung volumes are symmetric. No focal consolidation is seen. No evidence of pneumothorax, pleural effusion, or pulmonary edema. The cardiomediastinal contour is unremarkable. No acute osseous findings are seen. IMPRESSION: Endotracheal tube tip approximately 4 cm above the kaleb. No acute findings identified.
--- NOTE | 2016-12-30 07:09 | Cons- CRCU ---
JOHANNA BUSTAMANTE,[facility] 12/30/16 0708: General Information and HPI Consulting Request Date of Consult: 12/30/16 Requested By: Dr Torres Reason for Consult: Critically Ill Source of Information: old records, EMS, W10 Exam Limitations: unable to give history History of Present Illness: Mr. Kinney is a 51-year-old gentleman with past medical history of PTSD, depression and questionable schizoaffective disorder who was brought in by ambulance after his friend notified EMS that the patient had recently called her expressing suicidal ideation and recent ovedose. Mr Kinney called his friend Estephanie ([phone]) at approximately 7.30 pm on 12/29/2016. It had been mentioned that the patient overdosed on a combination of Seroquel and extensive amount of alcohol. He was subsequently brought in by EMS. At the time of admission the patient was combative and upon arrival the patient was in handcuffs. He was yelling profanities at staff with slurred speech. Moments later, he was drowsy but arousable and easily agitated. At 0005 12/30/2016, the patient was unconscious and unresponsive. The patient was subsequently intubated. #8 ET was placed. Patient is currently unemployed and relatively independant with activities of daily living. Mr Kinney does have a history of previous suicide attempts and has been previously admitted to [facility] after ingesting antifreeze as well as other chemical substances on 2 previous occasions. His friend Estephanie can be reached on ([phone]). Mr. Kinney's mother Charlotte Kinney can be reached on [phone]. She has been updated on the care and curent status of Mr Kinney. Ovenight: T: 96.3. HR: 73-82. NSR. RR: . BP: 119/96-140/73. Eckert since the time of admission: Output: 244 This morning during the course of the clinical encounter the patient was unresponsive as is currently intubated. He was unable to follow any verbal commands. He is currently on a propofol drip for sedation.He has also been receiving ativan for agitation. His last EKG showed QTC of 442. Allergies/Medications Allergies: Coded Allergies: Penicillins (UNKNOWN 08/04/16) Current Medications: Current Medications Sig/Earline Start time Last Medication Dose Route Stop Time Status Admin Acetaminophen 1,000 MG Q6P PRN 12/30 0030 AC IV Heparin Sodium 5,000 UNIT Q8 12/30 0600 AC 12/30 (Porcine) SC 0556 Lorazepam 2 MG Q4P PRN 12/30 0030 AC IV Naloxone HCl 2 MG ONCE ONE 12/29 2144 DC 12/29 IV 12/29 Naloxone HCl 0 .STK-MED ONE 12/30 2139 DC .ROUTE Naloxone HCl 0.8 MG ONCE ONE 12/29 2129 DC 12/29 IV 12/29 Naloxone HCl 1.2 MG ONCE ONE 12/29 2129 DC 12/29 IV 12/29 Naloxone HCl 0 .STK-MED ONE 12/29 2124 DC .ROUTE Naloxone HCl 0 .STK-MED ONE 12/30 2119 DC .ROUTE Olanzapine 0 .STK-MED ONE 12/29 2046 DC IM Olanzapine 10 MG ONCE ONE 12/29 2044 DC 12/29 IM 12/29 Pantoprazole Sodium 40 MG DAILY 12/30 1000 AC IV Sodium Chloride 1,000 ML BOLUS ONE 12/30 0045 DC 12/30 IV 12/30 0144 0039 Sodium Chloride 1,000 ML Q13H 12/30 0030 AC 12/30 IV 0046 Sodium Chloride 1,000 ML BOLUS ONE 12/29 2330 DC 12/29 IV 12/30 0029 2332 Review of Systems Review of Systems Constitutional: Reports: see HPI. Denies: chills, diaphoresis, fever, malaise, weakness. Past History Travel History Traveled to [place] past 21 day No Medical History Psychiatric: anxiety, depression, psychosis Surgical History Surgical History: non-contributory Psychosocial History Where Do You Live? Home Who Do You Live With? self Services at Home: None Primary Language: Kazakh Smoking Status: Current Everyday Smoker ETOH Use: heavy use Illicit Drug Use: marijuana Functional Ability ADLs Independent: dressing, eating, toileting, bathing. Ambulation: independent IADLs Independent: shopping, housework, finances, food prep, telephone, transportation , medication admin. Exam & Diagnostic Data Last 24 Hrs of Vital Signs/I&O Vital Signs Date Time Temp Pulse Resp B/P B/P Pulse O2 O2 Flow FiO2 Mean Ox Delivery Rate 12/30 822 Ventilator 30% 12/31 799 30 12/30 0800 97.7 77 18 130/90 05/ 0800 98 Ventilator 30% 12/30 0800 97.7 77 18 130/90 98 Ventilator 30% 12/30 0600 96.8 82 18 138/74 05/ 0556 30 12/30 0336 99 Ventilator 30% 12/30 0300 96.3 77 18 139/82 05/ 0248 30 05/ 0048 98.6 96 18 140/85 100 Ventilator 40% 12/30 0039 40 12/30 0018 98.7 109 18 136/89 100 Ventilator 40% 12/29 2253 127 28 123/85 98 BIPAP 40% 12/29 2230 99 BIPAP 40% 12/29 2223 133 32 131/85 99 Non 100% ReBreather 12/29 2218 140 99 12/29 2153 141 22 143/96 98 Non 100% ReBreather 12/29 2120 100 24 129/81 99 Non 100% ReBreather 12/29 2052 98.1 107 16 137/91 99 Nasal 2.0L Cannula 12/29 2044 100 Non ReBreather 12/30 2035 108 16 100 Non ReBreather Intake & Output 12/30 1600 12/30 0800 12/30 0000 Intake Total 450 Output Total 565 50 Balance -115 -50 Intake, IV 450 Output, 325 Gastric Drainage Output, Urine 240 50 Patient 75.948 kg Weight Weight Bed scale Measurement Method Physical Exam General Appearance: comfortable, intubated Head: atraumatic, normal appearance Eyes: Bilateral: normal appearance, PERRL. Ears, Nose, Throat: normal pharynx, normal ENT inspection Neck: normal inspection, supple Respiratory: normal breath sounds, chest non-tender Cardiovascular: regular rate/rhythm Gastrointestinal: normal bowel sounds, soft, non-tender Back: normal inspection Extremities: normal inspection, no edema Cranial Nerves: PERRL Skin: normal color Last 48 Hrs of Labs/Abdifatah: Laboratory Tests 12/30/16 0657: Lactic Acid Cancelled 12/30/16 0625: pH 7.34 L, pCO2 39, pO2 142 H, HCO3 21, ABG O2 Sat (Measured) 97.0, P-50 (Temp Corrected) Y, Carboxyhemoglobin 1.0 L, O2 Concentration % 30%, Temperature 96.8 L, Respiration Rate 18, O2 Delivery Method ESPRIT, Vent Mode AC, Expiratory Pressure 5, Tidal Volume 500, Phlebotomy Draw Site RIGHT RADIAL 12/30/16 0610: Lactic Acid 2.1 12/30/16 0600: Creatine Kinase Cancelled 12/30/16 0600: Sodium Cancelled, Potassium Cancelled, Chloride Cancelled, Carbon Dioxide Cancelled, Anion Gap Cancelled, BUN Cancelled, Creatinine Cancelled, BUN/ Creatinine Ratio Cancelled 12/30/16 0300: Troponin I Cancelled 12/30/16 0300: Lactic Acid 2.4 H 12/30/16 0300: Anion Gap 13, Estimated GFR > 60, Glucose 93, Calcium 8.0 L, Phosphorus 3.0, Magnesium 2.0, Total Bilirubin 0.6, AST 24, ALT 31, Creatine Kinase 549 H, Troponin I 0.07, Albumin 3.3 L, Amylase 105, Lipase 15 L, CBC w Diff NO MAN DIFF REQ, RBC 4.06 L, MCV 101.7 H, MCH 34.2 H, RDW 13.0, MPV 8.0, Gran % 63.9 , Lymphocytes % 24.8, Monocytes % 6.3, Eosinophils % 4.7, Basophils % 0.3, Absolute Granulocytes 4.2, Absolute Lymphocytes 1.6, Absolute Monocytes 0.4, Absolute Eosinophils 0.3, Absolute Basophils 0, PUBS MCHC 33.7 12/30/16 0205: pH 7.31 L, pCO2 43, pO2 197 H, HCO3 21, ABG O2 Sat (Measured) 97.0, P-50 (Temp Corrected) Y, Carboxyhemoglobin 1.6, O2 Concentration % 40%, Temperature 98.7, Respiration Rate 18, O2 Delivery Method ESPRIT, Vent Mode AC, Expiratory Pressure 5, Tidal Volume 500, Phlebotomy Draw Site RIGHT RADIAL 12/30/16 0110: Urine Color STRAW, Urine Clarity CLEAR, Urine pH 5.5, Ur Specific [place] 1.025, Urine Protein NEG, Urine Ketones NEG, Urine Nitrite NEG, Urine Bilirubin NEG, Urine Urobilinogen 0.2, Ur Leukocyte Esterase NEG, Ur Microscopic SEDIMENT EXAMINED, Urine RBC RARE, Urine WBC RARE, Ur Epithelial Cells RARE, Urine Bacteria FEW H, Urine Hemoglobin LARGE H, Urine Glucose NEG 12/30/16 0014: Phosphorus Cancelled 12/29/16 2319: Lactic Acid 2.2 H 12/29/162309: pH 7.36, pCO2 38, pO2 121 H, HCO3 21, ABG O2 Sat (Measured) 96.0, P-50 (Temp Corrected) Y, Carboxyhemoglobin 2.4, O2 Concentration % 40%, Temperature 98.0, Respiration Rate 28, O2 Delivery Method BIPAP, Vent Mode ST, Expiratory Pressure 6, Inspiratory Pressure 20, Phlebotomy Draw Site RIGHT RADIAL 12/29/162144: pH 7.22 *L, pCO2 65 *H, pO2 183 H, HCO3 26, ABG O2 Sat (Measured) 99.0, P-50 ( Temp Corrected) Y, Carboxyhemoglobin 3.2, O2 Concentration % 100, Temperature 98.0, O2 Delivery Method NRB, Phlebotomy Draw Site RIGHT RADIAL 12/29/162101: Urine Opiates Screen < 100.00, Methadone Screen < 40, Barbiturate Screen < 60, Ur Phencyclidine Scrn < 6.00, Amphetamines Screen < 100, U Benzodiazepines Scrn > 800 H, Urine Cocaine Screen < 50, Urine Cannabis Screen > 80.00 H 12/29/162049: Anion Gap 16, Estimated GFR > 60, BUN/Creatinine Ratio 11.3, Glucose 97, Calcium 9.2, Phosphorus 3.2, Magnesium 2.4 H, Total Bilirubin 0.6, AST 29, ALT 30, Alkaline Phosphatase 62, Creatine Kinase 568 H, Troponin I < 0.01, Total Protein 7.6, Albumin 4.5, Globulin 3.1, Albumin/Globulin Ratio 1.5, CBC w Diff NO MAN DIFF REQ, RBC 4.69 L, MCV 100.0 H, MCH 34.2 H, RDW 12.7, MPV 8.0, Gran % 48.0, Lymphocytes % 38.9, Monocytes % 6.0, Eosinophils % 6.5 H, Basophils % 0.6, Absolute Granulocytes 3.2, Absolute Lymphocytes 2.6, Absolute Monocytes 0.4 , Absolute Eosinophils 0.4, Absolute Basophils 0, PUBS MCHC 34.3, Salicylates < 1.0, Acetaminophen < 10.0 L, Serum Alcohol 215.0 Diagnostic Data CXR Results SERVICE DATE: 12/30/16 EXAM TYPE: RAD - XRY-PORTABLE CHEST XRAY EXAMINATION: XR PORTABLE CHEST CLINICAL INFORMATION: Shortness of breath, unresponsive, assess endotracheal tube placement COMPARISON: 12/29/2016 TECHNIQUE: Portable frontal view of the chest was obtained. FINDINGS: Endotracheal tube tip lies approximately 4 cm above the kaleb. Lung volumes are symmetric. Linear left basilar atelectasis is noted. No dense consolidation is seen. No appreciable pneumothorax, though the left apex is not fully included on the image. No significant pleural effusion. The cardiac silhouette is mildly prominent, which may be accentuated by technique. No acute osseous findings are seen. IMPRESSION: Endotracheal tube tip approximately 4 cm above the kaleb. Linear left basilar atelectasis. DICTATED BY: AQUILES CHARLES MD Other Results SERVICE DATE: 12/29/16 EXAM TYPE: CAT - CT HEAD WO IV CONTRAST EXAMINATION: CT HEAD WITHOUT CONTRAST CLINICAL INFORMATION: Mental status change COMPARISON: None TECHNIQUE: Contiguous axial imaging was performed from the skull base to vertex without intravenous administration of contrast. DLP: 610.15 mGy-cm FINDINGS: There is no evidence of acute intracranial hemorrhage or territorial infarction. No abnormal mass effect or midline shift is seen. Nascimento to white matter differentiation is well preserved. No extra-axial fluid collections are identified. The ventricles are normal in size. There is no abnormal attenuation within the brain parenchyma. The osseous structures and soft tissues are normal. There is extensive opacification of the ethmoid air cells bilaterally. The mastoid air cells are well-aerated. IMPRESSION: No acute intracranial pathology. DICTATED BY: AQUILES CHARLES MD Assessment/Plan Impression/Plan: Mr. Kinney is a 51-year-old gentleman with past medical history of PTSD, depression and questionable schizoaffective disorder who was brought in by ambulance after his friend notified EMS that the patient had recently called her expressing suicidal ideation and took a combination of Seroquel and Alcohol. Vent Settings: RR: 18. Peak Flow: 50. PEEP: 5. TV: 500. %O2: 30 #Drug overdose status post suicidal ideation. Urine toxicology did show evidence of: >80.0, Cannabis Screen, >800 Benzodiazepine Keep patient intubated for the next 24 hours. Propofol, titrate to ensure SAS of 4. Ativan 1mg Q6 PRN for agitation. Routine EKG for QTC prolongation. Last EKG QTC 442. Ensure electrolytes are repeated. Banana bag. Repeat labs every 12 hours. Lactic acid trended down from 2.2-2.4-2.1. Obtain records from [facility]. #Elevation in CPK. CK this am: 549. Repeat CPK 12/31/2016. Likely as a result of muscle breakdown due to combativeness. Continue hydration. Repeat CK became in a.m. Hold Nephrotoxic Medications. #History of schizoaffective disorder. Obtain past medical records. Moro level. #History of depression Obtain past medical records. We have send a request to [facility]. Once patient is more stable consider psychiatric consult. Patient may also benefit from a Social work consultation. #History of nicotine dependence. Continue Nicotine patch 14 mg daily. #Diet Nothing by mouth for now. Advance diet as tolerated. #Code Full code Consult Acknowledgment - Thank you for your consult request. 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 commanding officer Agree with above PT with sig history of psychiatric illness with now sig etoh injection and polysub injestion per the notes Intubated and sedated PT ed notes pt was combative and his tox screen was positive for marijuana Pt may have taken intentionally sig amount of seroquel and other substances IMP REsp failure due to prob intentional od with multiple substances including etoh and marijuana and othe meds including seroquel Sig Psych illness with recent PSychiatric admission TOxic metabolic encephalopathy Suicidal ideation Mildly elevated cpk REC keep intubated and sedated today with propofol and atc ativan 1mg q6 hrs and prn Reduce propofol if tolerated Serial ekg for qtc Check labs this pm and keep mag at 2 and watch potassium D5 1/2 ns maintaince REpt labs IV ppi Banana bag Check tsh WIll follow Update family if available Consult Acknowledgment - Thank you for your consult request.
--- NOTE | 2016-12-30 08:00 | NUR ---
Patient is lethargic, will open eyes with a sternal rub. Moves all extremities however movements are not purposefull. Pupils are 2mm and sluggish. Soft bilateral wrist restraints in place. NSR on tele monitor, HR= 70-80's. SBP: 120-130's. Intubated with a #8 to the right at 24cm, lungs clear and O2 sat 98-100%. Vent settings currently AC: 18/500/30/5- scant thin secretions noted when suctioning. OGT in place to low wall suction with brown output noted. Eckert in place draining clear yellow urine. Skin appears intact with no areas of pressure injury noted. No s/s of pain. Dr. West now at the bedside to assess patient. Will continue to closely monitor patient.
--- NOTE | 2016-12-30 11:29 | NUR ---
At 0930, 2mg Iv ativan given and a propofol gtt was started per order. patient is now awake and combative- thrashing in the bed and gagging and biting on his ETT. Unable to be calmed with verbal direction. Dr. Barajas in to assess. To titrate propofol gtt up per order for a goal SAS of 3-4. At time of this note propofol gtt is now infusing at 30mcg, SAS ranging from 3-6- An additional 2mg Iv ativan given at 1045 while attempting to retap ETT. House staff and nursing staff at the bedside. Patient continues to have episodes of combativeness with any stimulation. See flow sheet for details of titration and vitals. Will continue to closely monitor patient.
[2016-12-30 11:32] LABS: LITHIUM < 0.2 mmol/L (0.6-1.2)
[2016-12-31] VITALS (12 sets, daily range): BP systolic 121–148; BP diastolic 60–88
[2016-12-31 04:56] LABS: ABSOLUTE BASOPHIL COUNT 0 /CUMM (0.0-0.2); ABSOLUTE EOSINOPHIL COUNT 0.2 /CUMM (0.0-0.7); ABSOLUTE GRANULOCYTE CT 6.9 /CUMM (1.4-6.5); ABSOLUTE LYMPH COUNT 1.3 /CUMM (1.2-3.4); ABSOLUTE MONOCYTE COUNT 0.6 /CUMM (0.10-0.60); BASOPHIL % 0.3 % (0.0-2.0); EOSINOPHIL % 2.7 % (0-5); GRANULOCYTE % 76.3 % (42.2-75.2); HEMATOCRIT 41.5 % (42-52); MEAN CORPUSCULAR HGB 34.3 PG (27.0-31.0); MEAN CORPUSCULAR HGB CONC 34.2 G/DL (33.0-37.0); MEAN CORPUSCULAR VOLUME 100.5 FL (80.0-94.0); MEAN PLATELET VOLUME 8.8 FL (7.4-10.4); PLATELET COUNT 184 /CUMM (130-400); RBC DISTRIBUTION WIDTH 13.1 % (11.5-14.5); RED BLOOD CELL CT 4.14 /CUMM (4.70-6.10)
--- NOTE | 2016-12-31 07:08 | PN- Resident CRCU ---
Subjective HPI/CRCU Issues: 1. Drug overdose s/p suicidal ideation 2. Acute hypercapnic respiratory failure likely secondary to multiple substance ingestion 3. Toxic encephalopathy 4. Signficiant psychiatric illness including depression with suicidal ideation and substance use 5. Slightly elevated CPK 24 Hour Events: Patient noted to had SAS scores of 4-6 with significant requirements for ativan overnight (4 times in total) due to agitation. Patient remained on mechanical ventilation for acute hypercapnic respiratory failure with AC 18, TV 500, FiO2 30 and 5 of PEEP. He remained on propofol drip with ativan 1mg IV Q6 standing. cardiac monitor showed HR ranged 68-84 with NSR/first degree heart block. Other vital signs included Tmax 98.5, RR 18, BP 115-158/65-85. Latest ABG on 12/30/16 showed pH 7.34, pCO2 39, pO2 142, HCO3 21 on AC 18 TV 500, FiO2 30% and 5 of PEEP. Objective Vital Signs & I&O Last 8 Hrs of Vitals and I&O: Intake & Output 12/31 1600 Intake Total Output Total Balance Patient 168 lb Weight Weight Bed scale Measurement Method Exam General Appearance: well developed/nourished, no apparent distress, comfortable, sedated Head: atraumatic, normal appearance Ears, Nose, Throat: moist mucus membranes, OGT in place with noted drainage Neck: normal inspection, trachea mid line Respiratory: + scattered rhonchi without wheeze. Normal air movement. Cardiovascular: regular rate/rhythm, normal peripheral pulses Gastrointestinal: normal bowel sounds, soft, non-tender Extremities: normal inspection, no edema Cranial Nerves: normal hearing Skin: intact, normal color, warm/dry Skin Temp/Moisture Exam: Warm/Dry IV Drips IV Drips: Propofol, currently being weaned down with goal of being titrated off. Nutrition Nutrition: NPO, Nutrition consult pending for tube feeds. Current Medications: Current Medications Sig/Earline Start time Last Medication Dose Route Stop Time Status Admin Acetaminophen 1,000 MG Q6P PRN 12/30 0030 AC IV Cyanocobalamin/ 1 BAG ONCE ONE 12/30 1045 DC 12/30 Thiamine/Pyridoxine IV 12/30 1844 1205 Dextrose/Water 1,000 ML Dextrose/Sodium 1,000 ML Q13H 12/30 1015 AC 05/02 Chloride IV 12/31 1214 0535 Fentanyl Citrate 25 MCG Q6-PRN PRN 12/31 0945 AC IV Haloperidol 1 MG Q6P PRN 12/31 0945 AC 12/31 IM 1047 Heparin Sodium 5,000 UNIT Q8 12/30 0600 AC 12/31 (Porcine) SC 0536 Lorazepam 1 MG Q3 12/31 1200 AC 05/ IV 0945 Lorazepam 2 MG ONCE ONE 12/31 0415 DC 12/31 IV 12/31 0416 0414 Lorazepam 1 MG Q6 12/30 1200 DC 12/31 IV 0602 Lorazepam 2 MG ONCE ONE 12/30 1115 DC 05 IV 12/30 1116 1045 Pantoprazole Sodium 40 MG DAILY 12/30 1000 AC 12/31 IV 0908 Potassium Chloride 10 MEQ Q1H 12/31 0545 DC 12/31 IV 12/31 0646 0659 Potassium Chloride 10 MEQ Q1H 12/30 1815 DC 12/30 IV 12/30 1916 1958 Propofol 1,000 MG Q12H 12/30 0945 AC 12/31 N/A 100 ML IV 0909 CXR Findings: IMPRESSION: 1. No change in positioning of endotracheal tube with tip approximately 4 to 5 cm above the kaleb. 2. No focal pulmonary process seen. EKG Findings: NSR HR 81 bpm, QTC 437. CT Scan Findings: Head CT: IMPRESSION: No acute intracranial pathology. Impression/Plan Impression/Problem List Impression: Mr. Kinney is a 51 year old male with PMH depression, anxiety, schizophrenia and suicidal ideation previously admitted to [facility] in 2016 who was brought to the [place] ED via ambulance due to episode of unresponsiveness. The patient was noted to have called a friend before this episode of unresponsiveness and noted he "wanted to kill himself". Patient was found laying next to nips of liquor and an empty bottle of seroquel (he may have taken approximately 40 tabs of 100 mg seroquel each). In the ED: Patient was combative, yelling and had slurred speech. He was administered 3 doses naloxone and 10 mg olanzapine. Patient was intubated after episodes of apnea and unresponsiveness. Vital signs at this time included afebrile, HR 100-140, BP 108/80. Pertinent labs included CK 568, troponin negative, toxicology + for benzos/cannabis. Alcohol 215. Lactate 2.2. Head CT done was negative. CXR showed no acute abnormality. Patient is admitted to the ICU and the following is the management: Respiratory 1. Acute hypercapnic respiratory failure likely due to substance ingestion, including marijuana, seroquel and ETOH * Patient remains intubated with AC, TV 500, FiO2 30, PEEP 5, RR 18 * Patient on propofol drip and ativan scheduled with SAS scores remaining high * Will attempt to wean off of propofol today, nursing staff made aware * Ativan changed from 1 mg IV Q6 to ativan drip as we are attempting to wean propofol off; patient has been combative and remains agitated on 1 mg Q3 IV ativan * Haldol 1 mg Q6P IM PRN agitation/irritability and IV fentanyl 25 mcg Q6P for sedation/agitation * Sputum cx ordered, f/u results * F/U daily CXR while patient intubated * IV PPI while intubated Infectious * Patient remains afebrile without leukocytosis or bandemia, however given prior episode of unresponsiveness requiring intubation, close clinical monitoring for aspiration pneumonia * Follow up sputum cultures * Of note, CXR this AM negative for pulmonary process Cardiac * Monitor vital signs Q1H * No active cardiac issues at this present time Heme 1. Macrocytosis * Patient noted to have MCV 100.5 * Likely 2/2 chronic alcohol use with vitamin deficiency * Follow up B12, folate, thiamine * Patient received banana bag Metabolic 1. Eleveated CPK on admission * CK 568 on admission, unsure how long patient unresponsive before prior to EMS arrival * Continue IVF and monitor renal function closely (6/0.8 today) * Hold nephrotoxins Alimentary 1. OGT with tube feeds * Due to fact that patient is not likely to be extubated today, nutrition consult obtained and suggested Jevity 1.2 alexys with goal rate 70 cc/h * Continue D51/2NS at 75 cc/h Neuro 1. Significant psychiatric illness, including depression, anxiety and schizophrenia with suicidal ideation * Awaiting records from [facility] on prior psychiatric illness/treatments * Once patient more stabilized, obtain psychiatric consult * Consider SW consult 2. Toxic metabolic encephalopathy * Urine toxicology did show evidence of: >80.0 Cannabis Screen, >800 Benzodiazepine * Continue intubation for now * Continue soft restraints x 4 as patient is aggressive and agitated * Titrate off propofol, start ativan drip to keep adequate SAS * Haldol PRN agitation and fentanyl for sedation * EKG shows normal QTC at 437 Skin * Continue repositioning while patient intubated DVTP: Code: FULL Problem List: 1. Depression 2. Suicide attempt by drug ingestion 3. Polysubstance overdose 4. Respiratory acidosis Pain Ratin Tomorrow's Labs & Rationales: CBC ICU lab bundle Magnesium AST/ALT Plan DVT/Prophylaxis: pharmacological, Heparin SC Code Status: Full Code
--- NOTE | 2016-12-31 08:58 | NUR ---
Patient is sedated on a propofol gtt infusing at 45mcg/kg/min. Combative and agitated at times requiring additional doses of ativan, SAS increasing up to 6. Soft wrist restraints x's [address] Moves all extremities but does not follow commands. Pupils 2mm and sluggish at this time. NSR on tele monitor, HR= 70-80's. SBP: 120-140's. Remains intubated with a #8 to the right at 24cm, lungs clear- O2 sat 100%. Vent settings currently AC 18/500/30/5. OGT in place to low wall suction with scant amounts of green output. Abdomen is soft with + bowel sounds. Eckert in place draining clear yellow urine with good output. Skin appears intact with no edema and no areas of pressure injury. D5 1/2 NS infusing @ 75mls/hr. No s/s of pain are currently noted. Awaiting further orders. Will continue to closely monitor patient.
--- NOTE | 2016-12-31 10:12 | RADIOLOGY REPORT ---
EXAMINATION: XR PORTABLE CHEST CLINICAL INFORMATION: Patient currently intubated. Confirm ET tube placement. COMPARISON: Chest x-ray dated 12/30/2016, 12/29/2016. TECHNIQUE: Portable AP semierect view of the chest was obtained. FINDINGS: Endotracheal tube tip is unchanged in position, approximately 4 to 5 cm above the kaleb. Enteric tube is seen coursing into the abdomen with tip not included. The cardiomediastinal silhouette is within normal limits in size. Lungs bilaterally are symmetrically expanded and clear. Evaluation of the lung apices is limited by overlapping tubing. Bony structures are grossly unremarkable. IMPRESSION: 1. No change in positioning of endotracheal tube with tip approximately 4 to 5 cm above the kaleb. 2. No focal pulmonary process seen.
--- NOTE | 2016-12-31 12:36 | NUR ---
When attempted to wean off propfol per Dr. Barajas's order, patient become extremely agitated and combative- Thrashing in bed, biting ETT, and launching upper body forward in the bed. Patient was not calming to verbal instruction. 4 Nursing staff members as well as house staff at the bedside for assistance. At the time of this event propofol gtt infusing at 30mcg and pt was previously medicated with IM Haldol and IV ativan per order. Propofol gtt increased to 35mcg- and 4mg IV ativan given. Dr. Barajas was notified and an ativan gtt was ordered and started at 5mg/hr. See flowsheet for details.
--- NOTE | 2016-12-31 13:00 | NUR ---
Andrew miller ordered by house staff. Security called to the bedside to assist nursing staff with placement. SAS 3 at this time. Vitals currently stable. Ativan gtt infusing at this time at 5mg/hr per order. Will attempt to wean off propofol when able. See flow sheet for details.
[2017-01-01] VITALS (13 sets, daily range): BP systolic 118–142; BP diastolic 70–878
[2017-01-01 05:26] LABS: ABSOLUTE BASOPHIL COUNT 0 /CUMM (0.0-0.2); ABSOLUTE EOSINOPHIL COUNT 0.1 /CUMM (0.0-0.7); ABSOLUTE GRANULOCYTE CT 7.2 /CUMM (1.4-6.5); ABSOLUTE LYMPH COUNT 1.4 /CUMM (1.2-3.4); ABSOLUTE MONOCYTE COUNT 0.6 /CUMM (0.10-0.60); BASOPHIL % 0.3 % (0.0-2.0); EOSINOPHIL % 0.9 % (0-5); GRANULOCYTE % 76.7 % (42.2-75.2); MEAN CORPUSCULAR HGB CONC 33.8 G/DL (33.0-37.0); MEAN CORPUSCULAR VOLUME 100.5 FL (80.0-94.0); MEAN PLATELET VOLUME 8.8 FL (7.4-10.4); PLATELET COUNT 176 /CUMM (130-400); RBC DISTRIBUTION WIDTH 13.2 % (11.5-14.5); RED BLOOD CELL CT 4.17 /CUMM (4.70-6.10); WHITE BLOOD CELL COUNT 9.4 /CUMM (4.8-10.8)
--- NOTE | 2017-01-01 07:16 | PN- Resident CRCU ---
AZEEM BUSTAMANTE,ARPAN 01/01/17 0716: Subjective HPI/CRCU Issues: 1. Drug overdose s/p suicidal ideation 2. Acute hypercapnic respiratory failure likely secondary to multiple substance ingestion 3. Toxic encephalopathy 4. Signficiant psychiatric illness including depression with suicidal ideation and substance use 5. Elevated CPK 24 Hour Events: Patient had noted air leak this morning and was not appropriately meeting tidal volumes as set on AC ventilation. Anesthesia was consuled and exchanged tube without problem. Tube feeds were discontinued about 20 minutes prior to administration of succinylcholine and propofol so patient was considered full stomach for procedure. Follow up CXR showed ET tube 7 cm above kaleb, thus it was advanced and repeat CXR shows adequate position 5.6 cm above kaleb. Objective Vital Signs & I&O Last 8 Hrs of Vitals and I&O: Intake & Output 01/01 1600 Intake Total Output Total Balance Patient 172 lb Weight Exam General Appearance: well developed/nourished, sedated, intubated Head: atraumatic, normal appearance Ears, Nose, Throat: moist mucus membranes, Copious secretions noted Neck: normal inspection, supple Respiratory: normal breath sounds, quiet respiration Cardiovascular: regular rate/rhythm, normal peripheral pulses Gastrointestinal: normal bowel sounds, soft, non-tender Extremities: normal inspection Cranial Nerves: No facial asymmetry noted Skin: normal color, warm/dry Skin Temp/Moisture Exam: Warm/Dry Weaning Schedule Start Time: 1135 Minute Volume: 10.1 Resp Rate: 20 Vt: 410 Heart Rate: 84 Eckert Still Needed? Yes NG Tube Site: OGT Still Needed? Yes (For tube feeds) IV Drips IV Drips: Ativan drip Nutrition Nutrition: tube feeding Current Medications: Current Medications Sig/Earline Start time Last Medication Dose Route Stop Time Status Admin Acetaminophen 1,000 MG Q6P PRN 12/30 0030 AC IV Dextrose/Sodium 1,000 ML Q13H 12/31 1445 AC / Chloride IV 1145 Fentanyl Citrate 25 MCG Q72H 01/01 0930 01/01 TOP 1030 Fentanyl Citrate 25 MCG Q6-PRN PRN 12/31 0945 DC 01/01 IV 0739 Haloperidol 2 MG Q6 / 1200 AC 01/01 PO 1149 Haloperidol 1 MG Q6P PRN 12/31 0945 DC 12/31 IM 1850 Heparin Sodium 5,000 UNIT Q8 12/30 0600 AC (Porcine) SC 0534 Lorazepam 100 MG Q7H / 1200 AC 05/03 Dextrose/Water 1,000 ML IV 1253 Lorazepam 100 MG Q16H / 1800 DC 05/ Dextrose/Water 1,000 ML IV 0453 Lorazepam 50 MG Q24H / 1145 DC 05/ Dextrose/Water 500 ML IV 12/31 1800 1206 Magnesium Hydroxide 30 ML DAILY PRN 01/01 0945 AC PO Magnesium Oxide 400 MG ONE ONE 01/01 0930 DC 05/ PO 01/01 0931 1149 Pantoprazole Sodium 40 MG DAILY 12/30 1000 AC / IV 1017 Polyethylene Glycol 17 GM DAILY 01/01 0945 AC 01/01 PO 1149 Potassium Chloride 10 MEQ Q1H 01/01 1000 DC 01/01 IV 01/01 1201 1252 Potassium Chloride 10 MEQ ONCE ONE 01/01 0930 CAN IV 01/01 1200 Potassium Chloride 10 MEQ Q1H 01/01 0900 CAN IV 01/01 1001 Propofol 1,000 MG Q12H 12/30 0945 AC 01/01 N/A 100 ML IV 0744 CXR Findings: IMPRESSION: The endotracheal tube is now located approximately 5.6 cm above the kaleb. No acute pulmonary findings compared to the prior radiograph. CT Scan Findings: Head CT: IMPRESSION: No acute intracranial pathology. Impression/Plan Impression/Problem List Impression: Mr. Kinney is a 51 year old male with PMH depression, anxiety, schizophrenia and suicidal ideation previously admitted to [facility] in 2016 who was brought to the [facility] ED via ambulance due to episode of unresponsiveness. The patient was noted to have called a friend before this episode of unresponsiveness and noted he "wanted to kill himself". Patient was found laying next to nips of liquor and an empty bottle of seroquel (he may have taken approximately 40 tabs of 100 mg seroquel each). In the ED: Patient was combative, yelling and had slurred speech. He was administered 3 doses naloxone and 10 mg olanzapine. Patient was intubated after episodes of apnea and unresponsiveness. Vital signs at this time included afebrile, HR 100-140, BP 108/80. Pertinent labs included CK 568, troponin negative, toxicology + for benzos/cannabis. Alcohol 215. Lactate 2.2. Head CT done was negative. CXR showed no acute abnormality. Patient is admitted to the ICU and the following is the management: Respiratory 1. Acute hypercapnic respiratory failure likely due to substance ingestion, including marijuana, seroquel and ETOH * ET tube change occured today due to air leak, no events * Patient remains intubated with AC, TV 500, FiO2 30, PEEP 5, RR 18 * Titrating off propofol drip (nursing staff aware) and patient on ativan drip * Add fentanyl patch Q78h * Haldol 2 mg PO Q8h * Sputum cx ordered, f/u results * F/U daily CXR while patient intubated * PO PPI via OGT while intubated * Aggressive bowel regimen * Maitenance fluids with D51/2NS at 60 cc/h and 1 banana bag today * Elevate head of bed/aspiration precuations Infectious * Patient remains afebrile without leukocytosis or bandemia, however given prior episode of unresponsiveness requiring intubation, close clinical monitoring for aspiration pneumonia * Follow up sputum cultures * Of note, CXR this AM negative for pulmonary process Cardiac * Monitor vital signs Q1H * No active cardiac issues at this present time Heme 1. Macrocytosis * Patient noted to have MCV 100.5 * Likely 2/2 chronic alcohol use with vitamin deficiency * Supplement with 1 banana bag, thiamine PO, multivitamin PO (both via OGT) * Monitor CBC daily in critically ill patient Metabolic 1. Eleveated CPK on admission * CK 568 on admission, unsure how long patient unresponsive before prior to EMS arrival * CPK today elevated to 703, though patient has been combative and fighting restraints/sedation in the bed * Closely monitor CPK (repeat level in AM) * Continue IVF and monitor renal function closely (6/0.8 today) * Hold nephrotoxins Alimentary 1. OGT with tube feeds * Continue Jevity 1.2 alexys with goal rate 70 cc/h * Continue D51/2NS at 60 cc/h for maitenance and 1 banana bag Neuro 1. Significant psychiatric illness, including depression, anxiety and schizophrenia with suicidal ideation * Psych consult placed and appreciated, will follow up recommendations * Begin haldol via OGT for now pending psych consult * Continue kimberly and soft restraints x 4 as patient is combative and pulling at lines * SW consult placed and appreciated 2. Toxic metabolic encephalopathy * Urine toxicology did show evidence of: >80.0 Cannabis Screen, >800 Benzodiazepine * Continue intubation for now as patient remains encephalopathic and combative * Continue soft restraints x 4/kimberly as patient is aggressive and agitated * Titrate off propofol, continue ativan drip to keep adequate SAS * Follow QTC daily, today it is at 424 Skin * Continue repositioning while patient intubated DVTP: Code: FULL Problem List: 1. Depression 2. Polysubstance overdose 3. Respiratory acidosis Pain Ratin Tomorrow's Labs & Rationales: CBC (critically ill) BEP CPK Mag Plan DVT/Prophylaxis: pharmacological, Heparin SC Code Status: Full Code JASBIR BUSTAMANTE,[facility] 01/01/17 1011: Attending MD Review Statement Attending Sign Off Attending Cosign Statement: I have: examined this patient, reviewed al EMR data, personally reviewd images, discussd w/resident/PA/[employer], discussed mgmt plan w/ryanne, discussed mgmt plan w/CM, discussed mgmt plan w/pt, agreed w/resident/PA/[employer] MA[employer]GER, amended to note. Other Findings: Agree with above PT with sig history of psychiatric illness with now sig etoh injection and polysub injestion per the notes Intubated and sedated still combative, ETT replaced as it had a leak PT ed notes pt was combative and his tox screen was positive for marijuana Pt may have taken intentionally sig amount of seroquel and other substances, however pill count did not suggest seroquel od Sig resp secretions history of etoh abuse per family and pt prob going through dts SIg psycosis in the past IMP REsp failure due to prob intentional od with multiple substances including etoh and marijuana and othe meds including seroquel possibly Prob sig dts Sig Psych illness with recent PSychiatric admission with sig psycosis TOxic metabolic encephalopathy Suicidal ideation Mildly elevated cpk upon admision No sig qtc prolongation or arrthymia or active infection or met acidosis so far REC keep intubated and sedated today With ativan. Start haldol atc down ng tube q 8 hrs 2 mg And follow cpk and mag and qtc daily Reduce propofol if tolerated and wean off Fentanyl patch Psych to see Start tube feeding Check labs this pm and keep mag at 2 and watch potassium D5 1/2 ns maintaince and can be reduced once he meets his free water goal and tube feeding. Continue ivf at 60 cc for now aggresive bowel regimen Change ppi to down og Banana bag instead pf d5 1/2 ns today cont heparin sub cut Thiamine down og from am and mvi WIll follow Update family if available today juan mcfadden
--- NOTE | 2017-01-01 08:14 | RADIOLOGY REPORT ---
EXAMINATION: XR PORTABLE CHEST CLINICAL INFORMATION: ET tube location. COMPARISON: Chest x-ray 12/31/2016. TECHNIQUE: Portable frontal view of the chest was obtained. FINDINGS: The tip of the endotracheal tube is 5 cm above the kaleb. There is an enteric tube extending below the level of the inferior margin of the image. There are multiple monitor leads overlying the chest. The lung kenney are well-expanded and appear clear bilaterally. The cardiac silhouette is normal. The aortic arch is unfolded. There are no pleural effusions or pneumothoraces. There are no acute osseous findings. IMPRESSION: 1. The tip of the endotracheal tube is 5 cm above the kaleb unchanged. 2. There are no acute cardiopulmonary findings.
--- NOTE | 2017-01-01 08:43 | RADIOLOGY REPORT ---
EXAMINATION: XR PORTABLE CHEST CLINICAL INFORMATION: ET tube replacement COMPARISON: 01/01/2017 at 6:14 AM TECHNIQUE: Portable AP view of the chest was obtained. FINDINGS: The radiograph is centered low on the chest and excludes the thoracic inlet and clavicles from the [id number]. If the patient currently has an endotracheal tube, then it is not fully included in the [id number] and a repeat radiograph would be needed. The enteric tube extends below the diaphragm and into the proximal stomach. The visualized portions of lungs remain clear. The cardiac silhouette is normal in size. The mediastinal and hilar contours are normal. The examined bones are unremarkable. IMPRESSION: Suboptimal chest radiograph due to lack of inclusion of thoracic inlet and lung apices within the [id number]. The visualized portions of the lungs are clear.
--- NOTE | 2017-01-01 10:18 | RADIOLOGY REPORT ---
EXAMINATION: XR PORTABLE CHEST CLINICAL INFORMATION: ET tube replacement. Check position COMPARISON: Multiple prior chest radiograph most recently 01/01/2017 TECHNIQUE: Portable portable AP upright view of the chest was obtained. FINDINGS: ET tube tip terminates just below the thoracic inlet, approximately 7 cm above kaleb. Enteric tube terminates at the gastric fundus. The lung volumes are slightly decreased but clear aside from minor linear atelectasis at the left base. The heart is not enlarged. IMPRESSION: ET tube tip terminates just below the thoracic inlet and is located approximately 7 cm above the kaleb. This critical result was discussed with Saumya Worrell by telephone at 10:13 AM on 01/01/2017 and it was ascertained that the content and urgency of the report was understood at the time of direct communication.
--- NOTE | 2017-01-01 11:23 | NUR ---
At 0720, patient was not reaching adequate tidal volumes (ranging from 250-300), and a large leak was noted approx 50% that was not improving when air was added- Patient agiated and combative at this time and house staff at the bedside with this RN. Dr. Barajas was notified and ordered for the ETT to be replaced and for a propofol gtt to be started. Anesthesia paged and at the bedside. And patient was reintubated with a #8 ETT by anesthesia at approx 0755- A new ogt was also placed at this time and a CXR was done for confirmation. Pt medicated by anesthesia and he tolerated procedure well. Please see flow sheet for vital signs. At this time, patient is sedated on an ativan gtt that is now infusing at 15mg/hr and a propofol gtt is infusing at 15mcg- SAS ranging from 3-6. He can move all extremities but not to commands- periods of combativeness and extreme agitation with a CIWA score of 19. Psych in to evaluate and medication changes to be made. Soft wrists x's 4 and a kimberly vest in place. NSR on tele monitor, HR= 70-90's. SBP: 120-150's. #8 ETT taped to the right and was advanced by 2cm and is now at 24cm at the lip. Vent settings currently AC 18/500/30/5. Lungs clear- A moderate amount of varghese secretions noted. Abdomen is soft and non tender with + bowel sounds, + flatus. OGT in place and Jevity 1.2 has been restarted at 45mls/hr. No residual was noted prior to intubated. 110ml water flushes every [address] draining clear yellow urine with adequate output. Skin is intact with no areas of pressure injury. No s/s of pain at this time. A fentanyl patch was applied to his MIAH per order. Dr. barajas in to assess. Family and poison control updated on POC. Will continue to closely monitor patient.
--- NOTE | 2017-01-01 11:40 | RADIOLOGY REPORT ---
EXAMINATION: XR PORTABLE CHEST CLINICAL INFORMATION: Endotracheal tube adjustment. COMPARISON: CXR from 01/01/2017. TECHNIQUE: Portable AP view of the chest was obtained. FINDINGS: Endotracheal tube is located approximately 5.7 cm above the kaleb. The enteric tube is unchanged, its tip terminating within the proximal stomach. Lungs are symmetrically expanded. No acute interstitial pulmonary edema, focal consolidation or pleural effusion. Minimal discoid atelectasis in the inferior lingula. Cardiac silhouette is normal in size. Mediastinal and hilar contours are normal. The visualized bones are intact. IMPRESSION: The endotracheal tube is now located approximately 5.6 cm above the kaleb. No acute pulmonary findings compared to the prior radiograph.
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
[2017-01-02] VITALS (9 sets, daily range): BP systolic 96–139; BP diastolic 53–81
--- NOTE | 2017-01-02 02:09 | NUR ---
avss.remains sedated with propofol and ativan gtt. pupils reactive. period of increase agitation/restlessness. ciwaf at <15.marcos with +cms.safety precaution cont with restraints.+pp.ivf cont via piv site.remains intubated with no changed to vent settings and sats >95%.hob elevated.oral care done.tf cont via ogt. concepcion patent with good uo. no pressure ulcers noted.
[2017-01-02 05:18] LABS: ABSOLUTE BASOPHIL COUNT 0 /CUMM (0.0-0.2); ABSOLUTE EOSINOPHIL COUNT 0.2 /CUMM (0.0-0.7); ABSOLUTE GRANULOCYTE CT 4.8 /CUMM (1.4-6.5); ABSOLUTE LYMPH COUNT 1.7 /CUMM (1.2-3.4); ABSOLUTE MONOCYTE COUNT 0.6 /CUMM (0.10-0.60); BASOPHIL % 0.1 % (0.0-2.0); EOSINOPHIL % 3.4 % (0-5); GRANULOCYTE % 65.2 % (42.2-75.2); HEMATOCRIT 39.1 % (42-52); MEAN CORPUSCULAR HGB 34.5 PG (27.0-31.0); MEAN CORPUSCULAR HGB CONC 33.6 G/DL (33.0-37.0); MEAN CORPUSCULAR VOLUME 102.5 FL (80.0-94.0); MEAN PLATELET VOLUME 8.8 FL (7.4-10.4); PLATELET COUNT 180 /CUMM (130-400); RBC DISTRIBUTION WIDTH 13.1 % (11.5-14.5); RED BLOOD CELL CT 3.82 /CUMM (4.70-6.10); WHITE BLOOD CELL COUNT 7.4 /CUMM (4.8-10.8)
--- NOTE | 2017-01-02 06:26 | PN- Resident CRCU ---
JOHANNA BUSTAMANTE,JUNIOR 01/02/17 0625: Subjective HPI/CRCU Issues: Mr Kinney was seen and examined this morning. Resting comfortably in bed. He is curently sedated and minimally responsive. Unable to elicit any complaints. Patient continues to be intubated. 24 Hour Events: No Events Reported Objective Vital Signs & I&O Last 8 Hrs of Vitals and I&O: T:97.1-98.6 HR: 60-94 SR RR:18-20 BP:96/56-144/90 SAS:2-3 O2 Sat: 100% UO: SI: 2450 SII:1635 SIII:1460 Intake & Output 01/02 0800 Intake Total 1451 Output Total 1460 Balance -9 Intake, IV 1451 Output, Urine 1460 Exam General Appearance: intubated Head: atraumatic, normal appearance Ears, Nose, Throat: normal pharynx Neck: normal inspection Respiratory: normal breath sounds, chest non-tender, no respiratory distress Cardiovascular: regular rate/rhythm Gastrointestinal: normal bowel sounds, soft, non-tender Extremities: normal inspection Skin: intact, normal color, warm/dry Skin Temp/Moisture Exam: Warm/Dry Sepsis Skin Exam (color): Normal for Ethnicity Weaning Schedule Start Time: 1135 Minute Volume: 10.1 Resp Rate: 20 Vt: 410 Heart Rate: 84 Current Medications: Current Medications Sig/Earline Start time Last Medication Dose Route Stop Time Status Admin Acetaminophen 1,000 MG Q6P PRN 12/30 0030 AC IV Cyanocobalamin/ 1 BAG ONCE ONE 01/01 1330 CAN Thiamine/Pyridoxine IV 01/01 2129 Sodium Chloride 1,000 ML Dextrose/Sodium 1,000 ML Q13H 12/31 1445 AC / Chloride IV 0504 Fentanyl Citrate 25 MCG Q72H 01/01 0930 AC 01/01 TOP 1030 Fentanyl Citrate 25 MCG Q6-PRN PRN 12/31 0945 DC 01/01 IV 0739 Haloperidol 2 MG Q8 01/01 1400 DC PO Haloperidol 2 MG Q6 01/01 1200 DC 01/01 PO 1149 Haloperidol 1 MG Q6P PRN / 0945 DC 12/31 IM 1850 Heparin Sodium 5,000 UNIT Q8 12/30 0600 AC 01/02 (Porcine) SC 0504 Lorazepam 2 MG ONCE ONE 05/03 1415 DC 01/01 IV 01/01 1416 1405 Lorazepam 100 MG Q7H 01/01 1200 AC 01/02 Dextrose/Water 1,000 ML IV 0124 Lorazepam 100 MG Q16H 12/31 1800 DC 01/01 Dextrose/Water 1,000 ML IV 0453 Magnesium Hydroxide 30 ML DAILY PRN 01/01 0945 AC PO Magnesium Oxide 400 MG ONE ONE 01/02 0745 UNVr PO 01/02 0746 Magnesium Oxide 400 MG ONE ONE 01/01 0930 DC 01/01 PO 01/01 0931 1149 Multivitamins 1 TAB DAILY 01/01 1319 AC 01/01 PO 1617 Olanzapine 5 MG Q6 01/01 1832 AC 01/02 PO 0505 Olanzapine 5 MG Q6 01/01 1828 DC PO Omeprazole 40 MG DAILY AC 01/02 0700 CAN PO Pantoprazole Sodium 40 MG DAILY 01/02 1000 AC IV Pantoprazole Sodium 40 MG DAILY 12/30 1000 DC 01/01 IV 1017 Polyethylene Glycol 17 GM DAILY 01/01 0945 AC 01/01 PO 1149 Potassium Chloride 10 MEQ Q1H 01/01 1000 DC 01/01 IV 01/01 1201 1252 Potassium Chloride 10 MEQ ONCE ONE 01/01 0930 CAN IV 01/01 1200 Potassium Chloride 10 MEQ Q1H 01/01 0900 CAN IV 01/01 1001 Propofol 1,000 MG Q12H 12/30 0945 AC 01/01 N/A 100 ML IV 1424 Thiamine HCl 50 MG DAILY 01/01 1319 AC 01/01 PO 1618 Impression/Plan Impression/Problem List Impression: Mr. Kinney is a 51 year old male with PMH depression, anxiety, schizophrenia and suicidal ideation previously admitted to [facility] in 2016 who was brought to the [place] ED via ambulance due to episode of unresponsiveness. The patient was noted to have called a friend before this episode of unresponsiveness and noted he "wanted to kill himself". Patient was found laying next to nips of liquor and an empty bottle of seroquel (he may have taken approximately 40 tabs of 100 mg seroquel each). In the ED: Patient was combative, yelling and had slurred speech. He was administered 3 doses naloxone and 10 mg olanzapine. Patient was intubated after episodes of apnea and unresponsiveness. Vital signs at this time included afebrile, HR 100-140, BP 108/80. Pertinent labs included CK 568, troponin negative, toxicology + for benzos/cannabis. Alcohol 215. Lactate 2.2. Head CT done was negative. CXR showed no acute abnormality. Patient is admitted to the ICU and the following is the management: Respiratory 1. Acute hypercapnic respiratory failure likely due to substance ingestion, including marijuana, seroquel and ETOH * ET tube change occured today due to air leak, no events * Patient remains intubated with AC, TV 500, FiO2 30, PEEP 5, RR 18 * Propofol drip being used sparingly and patient on ativan drip * Continue fentanyl patch Q78h * Sputum cx ordered, f/u results * F/U daily CXR while patient intubated * PO PPI via OGT while intubated * Aggressive bowel regimen, Senna and Dulcolax. * Maitenance fluids with D51/2NS at 60 cc/h. * Elevate head of bed/aspiration precuations Infectious * Patient remains afebrile without leukocytosis or bandemia, however given prior episode of unresponsiveness requiring intubation, close clinical monitoring for aspiration pneumonia * Follow up sputum cultures * Of note, CXR this AM negative for pulmonary process Cardiac * Monitor vital signs Q1H * No active cardiac issues at this present time Heme 1. Macrocytosis * Patient noted to have MCV 100.5 * Likely 2/2 chronic alcohol use with vitamin deficiency * Supplement with 1 banana bag, thiamine PO, multivitamin PO (both via OGT) * Monitor CBC daily in critically ill patient Metabolic 1. Eleveated CPK on admission * CK 568 on admission, unsure how long patient unresponsive before prior to EMS arrival * CPK today 421, though patient has been combative and fighting restraints/ sedation in the bed * Closely monitor CPK (repeat level in AM) * Continue IVF and monitor renal function closely (5/0.8 today) * Hold nephrotoxins * Na this am: 138 (down from 147). Repeat Na to rule out DI secondary to neurological damage. Alimentary 1. OGT with tube feeds * Continue Jevity 1.2 alexys with goal rate 70 cc/h * Continue D51/2NS at 60 cc/h for maitenance and 1 banana bag Neuro 1. Significant psychiatric illness, including depression, anxiety and schizophrenia with suicidal ideation * Psych consult placed and appreciated, will follow up recommendations * Haldol discontinued, Continue Olanzapine 5mg Q6, we will hold for QTC > 475. * Continue kimberly and soft restraints x 4 as patient is combative and pulling at lines * SW consult placed and appreciated 2. Toxic metabolic encephalopathy * Urine toxicology did show evidence of: >80.0 Cannabis Screen, >800 Benzodiazepine * Continue intubation for now as patient remains encephalopathic and combative * Continue soft restraints x 4/kimberly as patient is aggressive and agitated * Minimize use of propofol, continue ativan drip to keep adequate SAS * Follow QTC daily, today it is at 437. Repeat EKG every 12 hours. Skin * Continue repositioning while patient intubated DVTP: Code: FULL Problem List: 1. Depression 2. Suicide attempt 3. Suicide attempt by drug ingestion 4. Polysubstance overdose Pain Ratin Tomorrow's Labs & Rationales: ICU Bundle CBC Plan DVT/Prophylaxis: pharmacological, Heparin SC Code Status: Full Code JASBIR BUSTAMANTE,[facility] 01/02/17 1358: Attending MD Review Statement Attending Sign Off Attending Cosign Statement: I have: examined this patient, reviewed [facility] EMR data, personally reviewd images, discussd w/resident/PA/RESEARCH METHODOLOGIST, discussed mgmt plan w/ryanne, discussed mgmt plan w/CM, discussed mgmt plan w/pt, agreed w/resident/PA/RESEARCH METHODOLOGIST, amended to note. Other Findings: Agree with above PT with sig history of psychiatric illness with now sig etoh injection and polysub injestion per the notes Intubated and sedated still combative, ETT replaced as it had a leak PT ed notes pt was combative and his tox screen was positive for marijuana Pt may have taken intentionally sig amount of seroquel and other substances, however pill count did not suggest seroquel od Sig resp secretions history of etoh abuse per family and pt prob going through dts SIg psycosis in the past IMP REsp failure due to prob intentional od with multiple substances including etoh and marijuana and othe meds including seroquel possibly Prob sig dts Sig Psych illness with recent PSychiatric admission with sig psycosis TOxic metabolic encephalopathy Suicidal ideation Mildly elevated cpk upon admision No sig qtc prolongation or arrthymia or active infection or met acidosis so far REC keep intubated and sedated today With ativan. cont olanzapine and follow cpk and qtc and mag dily Reduce propofol if tolerated and wean off and cont ativan Fentanyl patch Cont tube feeding D5 1/2 ns maintaince and can be reduced once he meets his free water goal and tube feeding. aggresive bowel regimen Change ppi to down og can dc iv cont heparin sub cut Thiamine down og from am and mvi WIll follow Update family if available today juan Wickg guarded
--- NOTE | 2017-01-02 08:17 | RADIOLOGY REPORT ---
EXAMINATION: XR PORTABLE CHEST CLINICAL INFORMATION: Mechanical ventilation and critically ill patient. Evaluate endotracheal tube placement. COMPARISON: Several prior chest x-rays, most recent of which is dated 01/01/2017. TECHNIQUE: Portable semierect view of the chest was obtained. FINDINGS: Endotracheal tube tip approximately 4.7 cm above the kaleb. Enteric tube courses into the abdomen with tip projected over the gastric fundus. The cardiomediastinal silhouette is within normal limits in size. Lungs are symmetrically expanded and demonstrate minimal crowding of bronchovascular markings in the lung bases. No focal consolidation, effusion or pneumothorax is seen. Bony structures are unremarkable. IMPRESSION: 1. Endotracheal tube tip approximately 4.7 cm above the kaleb. 2. Enteric tube tip projected over the gastric fundus. 3. No focal pulmonary process.
--- NOTE | 2017-01-02 09:11 | PN- Psychiatry ---
See Addendum Assessment/Plan Impression: Identifying Info: 51-year-old AA male brought in by ambulance to [facility] emergency department on PEER on 12/29/16 status post disclosing to a friend that he was going to kill himself. He was intially unresponsive at home then became combative. Empty liquor and pill bottles were found around him in field. He was subsequently admitted to CCU with suspected Seroquel overdose. SUBJECTIVE (The patient remains sedated) Collateral obtained from mayda Renteria of [facility] and [facility] ([phone]). She states the patient has been receiving recently mourning the loss of" someone," she is on clear on who this person once she knows and his friend but it is someone whose caused him pain. He has also recently made some provocative statements regarding suicidality and his medical care stating that he wanted to have a colonoscopy with the hope that he would not wake up from the anesthesia. She states that he has an additional family service caseworker named Monique Saavedra ([phone]). And is currently treated at [facility] in [place] by therapist Azar Guillen and Charlotte Mas APRN for medication ([phone]). Spoke to Azar reports he has not seen the patient in at least a month. He reports that the patient has a chronic pattern of suicidality and hospitalization. He has a high potential for violence and poor social skills. He has not been able to maintain employment and recently moved to [place]. He was most recently seen on December 09 by his prescriber Charlotte. He reports she will call today to provide collateral information regarding most recent med list and mental status. Brief ROS Gait: NA Sleep: NA Appetite: NA OBJECTIVE Mental Status Exam Presentation/Appearance: Lying in hospital bed, sedated with vent and ET tube in place Orientation: NANDO Sensorium: Sedated Eye contact: None Affect: Flat Mood: NANDO, per staff report aggitated Depression: NANDO Anxiety: NANDO Thought Content: - Per reports SI - NANDO Thought Process: Poverty of content at present Associations: NANDO Speech:None Judgment: Impaired Insight: Impaired Cognition: Memory: NANDO Attention/Concentration: NANDO Fund of Knowledge: NANDO Abstractions:NANDO MMSE: NANDO Per nuring report the pt has been primarily minimally responsive but became briefly aggitated last night when an attempt was made to start and IV. Ativan drip continues 12mg/hr, Propofol 25mcg. ASSESSMENT 51-year-old -[place] male with a h/o schizoaffective d/o and PSA presents status post reported suicide attempt. He has been combative and at present is intubated and sedated in the ICU. Whenever awoken patient attempts to assault staff. He would benefit from continued antipsychotic and mood stabilizing medication. AT present he is likley experiencing delirium due to substances and substance withdrawl as well as a mood episode. Differential diagnosis Schizoaffective d/o Delirium due to multiple eitiologies Alcohol use d/o, moderate Cannabis use d/o, moderate Suggestion: 1. Please continue Zyprexa and continue to monitor QTc. 2. Patient is on PEC. Pt may not leave AMA. Plan for inpatient psychiatric admission pending medical clearance. 3. Please continue to reduce ativan and propofol MICHAEL as tolerated. It would be prudent to decrease BZD medications by 25% daily. 4. Pt will require sitter as sedation is decreased. Thank you for including psychiatry in this case, we will continue to follow. Subjective Subjective: as above Objective Last 24 Hrs of Vital Signs/I&O Current Medications Sig/Earline Start time Last Medication Dose Route Stop Time Status Admin Acetaminophen 1,000 MG Q6P PRN 12/30 0030 AC IV Cyanocobalamin/ 1 BAG ONCE ONE 01/01 1330 CAN Thiamine/Pyridoxine IV 01/01 2129 Sodium Chloride 1,000 ML Dextrose/Sodium 1,000 ML Q13H 12/31 1445 AC 01/02 Chloride IV 0504 Fentanyl Citrate 25 MCG Q72H 01/01 0930 01/01 TOP 1030 Haloperidol 2 MG Q8 01/01 1400 DC PO Haloperidol 2 MG Q6 01/01 1200 DC 01/01 PO 1149 Haloperidol 1 MG Q6P PRN 12/31 0945 DC 12/31 IM 1850 Heparin Sodium 5,000 UNIT Q8 12/30 0600 AC 01/02 (Porcine) SC 0504 Lorazepam 2 MG ONCE ONE 01/01 1415 DC 05/03 IV 01/01 1416 1405 Lorazepam 100 MG Q7H 01/01 1200 AC 01/02 Dextrose/Water 1,000 ML IV 0124 Lorazepam 100 MG Q16H 05/02 1800 DC 01/01 Dextrose/Water 1,000 ML IV 0453 Magnesium Hydroxide 30 ML DAILY PRN 01/01 0945 AC PO Magnesium Oxide 400 MG ONE ONE 01/02 0745 DC PO 01/02 0746 Magnesium Oxide 400 MG ONE ONE 01/01 0930 DC 01/01 PO 01/01 0931 1149 Multivitamins 1 TAB DAILY 01/01 1319 AC 01/01 PO 1617 Olanzapine 5 MG Q6 01/01 1832 AC 01/02 PO 0505 Olanzapine 5 MG Q6 01/01 1828 DC PO Omeprazole 40 MG DAILY AC 01/02 0700 CAN PO Pantoprazole Sodium 40 MG DAILY 01/02 1000 AC IV Pantoprazole Sodium 40 MG DAILY 12/30 1000 DC 01/01 IV 1017 Polyethylene Glycol 17 GM DAILY 01/01 0945 AC 01/01 PO 1149 Potassium Chloride 10 MEQ Q1H 01/01 1000 DC 01/01 IV 01/01 1201 1252 Potassium Chloride 10 MEQ ONCE ONE 01/01 0930 CAN IV 01/01 1200 Potassium Chloride 10 MEQ Q1H 01/01 0900 CAN IV 01/01 1001 Propofol 1,000 MG Q12H 12/30 0945 AC 01/01 N/A 100 ML IV 1424 Thiamine HCl 50 MG DAILY 01/01 1319 AC 01/01 PO 1618 Laboratory Tests 01/02/17 0415: Anion Gap 7, Estimated GFR > 60, Glucose 111 H, Calcium 8.1 L, Phosphorus 3.7, Magnesium 1.9, Total Bilirubin 0.5, AST 20, ALT 37, Creatine Kinase 421 H, Albumin 2.8 L, CBC w Diff NO MAN DIFF REQ, RBC 3.82 L, MCV 102.5 H, MCH 34.5 H, RDW 13.1, MPV 8.8, Gran % 65.2, Lymphocytes % 22.7, Monocytes % 8.6, Eosinophils % 3.4, Basophils % 0.1, Absolute Granulocytes 4.8, Absolute Lymphocytes 1.7, Absolute Monocytes 0.6, Absolute Eosinophils 0.2, Absolute Basophils 0, PUBS MCHC 33.6 01/01/171999: Anion Gap 9, Estimated GFR > 60, Glucose 161 H, Calcium 8.3 L, Phosphorus 3.5, Magnesium 2.0, Total Bilirubin 0.6, AST 23, ALT 33, Albumin 2.9 L Vital Signs Date Time Temp Pulse Resp B/P B/P Pulse O2 O2 Flow FiO2 Mean Ox Delivery Rate 05/04 0806 30 05/04 0800 97.4 71 18 96/53 05/04 0800 100 Ventilator 30% 05/04 0800 97.4 71 18 96/53 100 Ventilator 30% 05/04 0542 30 05/04 0513 97.1 67 18 96/57 05/04 0421 99 Ventilator 30% 05/04 0322 30 05/04 0054 30 05/04 0000 97.9 70 18 117/72 05/04 0000 95 Ventilator 30% 05/03 2218 30 05/03 2200 60 18 134/878 05/1999 98.1 69 18 133/87 05/03 1999 99 Ventilator 30% 05/03 1911 30 05/03 1800 66 18 123/70 05/03 1606 30 05/03 1600 97.5 60 19 120/80 05/03 1600 99 Ventilator 30% 05/03 1407 30 05/03 1400 86 20 132/78 05/03 1200 78 20 140/80 05/03 1200 100 Ventilator 30% 05/03 1143 30 05/03 1000 72 18 118/78 Intake & Output 05/04 1600 05/04 0800 05/04 0000 Intake Total 1451 2435 Output Total 1460 1675 Balance -9 760 Intake, IV 1451 1788 Intake, Other 120 Intake, Tube 417 Feeding Intake, Tube 110 Irrigant Output, Urine 1460 1675 Patient 178 lb Weight Weight Bed scale Measurement Method
--- NOTE | 2017-01-02 10:52 | NUR ---
AT 0920 DR MARTELL ORDERED PROPOFOL TO BE TURNED OFF FOR SEDATION VACATION. ATIVAN CNTD TO INFUSE AT 12MG/HR. APPROXIMATELY 1015, PT BECAME DANGEROUSLY AGITATED AND PULLED AT ETT, OGT AND IV LINES, CAUSING SELF TO BE DISCONNECTED FROM VENTILATOR AND LOSS OF [address] MARTELL NOTIFIED AND AUTHORIZED PROPOFOL TO BE RESTARTED. PT WAS GIVEN BOLUS OF ATIVAN PER CIWA AND ATIVAN IVFUSION INCREASED. PROPOFOL RESTARTED TEMPORARILY AT THE LOWEST DOSE POSSIBLE.
--- NOTE | 2017-01-02 19:29 | NUR ---
METHYLENE BLUE DROPS PLACED INTO TUBE FEED TO BE CHECK FOR TUBE FEED ASPIRATION. THUS FAR, ETT SECRETIONS HAVE NOT REVEALED BLUE COLOR.
[2017-01-03] VITALS (12 sets, daily range): BP systolic 108–138; BP diastolic 55–92
[2017-01-03 03:31] LABS: ABSOLUTE BASOPHIL COUNT 0 /CUMM (0.0-0.2); ABSOLUTE EOSINOPHIL COUNT 0.2 /CUMM (0.0-0.7); ABSOLUTE GRANULOCYTE CT 4.8 /CUMM (1.4-6.5); ABSOLUTE LYMPH COUNT 1.4 /CUMM (1.2-3.4); ABSOLUTE MONOCYTE COUNT 0.6 /CUMM (0.10-0.60); BASOPHIL % 0.5 % (0.0-2.0); EOSINOPHIL % 3.1 % (0-5); GRANULOCYTE % 67.9 % (42.2-75.2); HEMATOCRIT 41.4 % (42-52); MEAN CORPUSCULAR HGB 33.7 PG (27.0-31.0); MEAN CORPUSCULAR HGB CONC 33.4 G/DL (33.0-37.0); MEAN CORPUSCULAR VOLUME 100.9 FL (80.0-94.0); MEAN PLATELET VOLUME 8.2 FL (7.4-10.4); PLATELET COUNT 193 /CUMM (130-400); RBC DISTRIBUTION WIDTH 12.7 % (11.5-14.5); WHITE BLOOD CELL COUNT 7.1 /CUMM (4.8-10.8)
--- NOTE | 2017-01-03 06:23 | PN- Resident CRCU ---
JOHANNA BUSTAMANTE,[facility] 01/03/17 0623: Subjective HPI/CRCU Issues: Mr. Kinney was seen and examined this morning. He is resting comfortably in bed. He is currently intubated and unable to elicit any complaints or issues. 24 Hour Events: EKG performed last evening showed QTC 410. Patient was febrile overnight, T: 100.5 This morning patient bit through his cuff and since the tube has significant air leaks, and had to be reintubated with the assistance of anesthesia. Objective Vital Signs & I&O Last 8 Hrs of Vitals and I&O: T: 97.4-100.5 HR:68 - 104 BP: 96/53 - 156/86 O2 Sat: 95-100% Urine Output: SI: 1600 SII:2120 SIII:2290 Exam General Appearance: well developed/nourished, intubated Head: atraumatic Neck: normal inspection Respiratory: normal breath sounds Cardiovascular: regular rate/rhythm Gastrointestinal: normal bowel sounds, soft, non-tender Extremities: normal inspection, normal capillary refill, no edema Cranial Nerves: PERRL Skin: intact, normal color Skin Temp/Moisture Exam: Warm/Dry Weaning Schedule Start Time: 1135 Minute Volume: 10.1 Resp Rate: 20 Vt: 410 Heart Rate: 84 Current Medications: Current Medications Sig/Earline Start time Last Medication Dose Route Stop Time Status Admin Acetaminophen 1,000 MG Q6P PRN 12/30 0030 AC 01/03 IV 0601 Bisacodyl 5 MG DAILY 01/02 1104 AC PO Dextrose/Sodium 1,000 ML Q13H 12/31 1445 AC 01/02 Chloride IV 1826 Fentanyl Citrate 25 MCG Q72H 01/01 0930 AC 01/01 TOP 1030 Heparin Sodium 5,000 UNIT Q8 12/30 0600 AC 01/03 (Porcine) SC 0554 Lorazepam 100 MG Q8H 01/02 1415 AC 01/03 Dextrose/Water 1,000 ML IV 0555 Lorazepam 2 MG ONE ONE 01/02 1115 DC / IV 01/02 1116 1015 Lorazepam 100 MG Q7H / 1200 DC 01/02 Dextrose/Water 1,000 ML IV 0124 Magnesium Hydroxide 30 ML DAILY PRN 01/01 0945 AC PO Magnesium Sulfate 1 GM ONCE ONE 01/03 0715 AC Dextrose/Water 100 ML IV 01/03 1114 Methylene Blue 1 MG .[INTO OG TUBE] 01/02 1800 AC TOP-INJ Multivitamins 1 TAB DAILY 01/01 1319 AC 01/02 PO 0931 Olanzapine 5 MG Q6 01/01 1832 AC 01/03 PO 0555 Omeprazole 40 MG DAILY AC 01/03 0700 AC 01/03 PO 0636 Pantoprazole Sodium 40 MG DAILY 01/02 1000 DC 01/02 IV 0930 Polyethylene Glycol 17 GM DAILY 01/01 0945 AC 01/02 PO 0930 Propofol 1,000 MG Q12H 12/30 0945 AC 01/03 N/A 100 ML IV 0105 Senna 187 MG AT BEDTIME 01/02 2200 AC 01/02 PO 2230 Thiamine HCl 50 MG DAILY 01/01 1319 AC 01/02 PO 0931 Impression/Plan Impression/Problem List Impression: Mr. Kinney is a 51 year old male with PMH depression, anxiety, schizophrenia and suicidal ideation previously admitted to [facility] in 2015 who was brought to the [place] ED via ambulance due to episode of unresponsiveness. The patient was noted to have called a friend before this episode of unresponsiveness and noted he "wanted to kill himself". Patient was found laying next to nips of liquor and an empty bottle of seroquel (he may have taken approximately 40 tabs of 100 mg seroquel each). In the ED: Patient was combative, yelling and had slurred speech. He was administered 3 doses naloxone and 10 mg olanzapine. Patient was intubated after episodes of apnea and unresponsiveness. Vital signs at this time included afebrile, HR 100-140, BP 108/80. Pertinent labs included CK 568, troponin negative, toxicology + for benzos/cannabis. Alcohol 215. Lactate 2.2. Head CT done was negative. CXR showed no acute abnormality. Patient is admitted to the ICU and the following is the management: Respiratory 1. Acute hypercapnic respiratory failure likely due to substance ingestion, including marijuana, seroquel and ETOH * ET tube change occured today under the care of anesthesia. due to air leak, no events * Patient remains intubated with AC, TV 500, FiO2 30, PEEP 5, RR 18 * Propofol drip being used sparingly and patient on ativan drip * Continue fentanyl patch Q78, will reduce patch to 12.0 mcg Q72H. * Sputum cx ordered, f/u results * F/U daily CXR while patient intubated * Ranitadine OGT while intubated * Patient has not had a BM yet. Aggressive bowel regimen, Senna and Dulcolax S. * Elevate head of bed/aspiration precuations 2. Aspiration Pneumonia * Patient has continued to be febrile, last temperature: 101.7 F. Vancomycin 1250 mg q12. * Follow up [facility]. If + for GNR, Add Ceftazidime. Infectious * Patient is febrile without leukocytosis close clinical monitoring for aspiration pneumonia * WBC 7.1. Repeat CBC in AM * Follow up sputum cultures * Of note, CXR this AM negative for pulmonary process Cardiac * Monitor vital signs Q1H * No active cardiac issues at this present time * Lasix 20 mg PO Heme 1. Macrocytosis * Patient noted to have MCV 100.5 * Likely 2/2 chronic alcohol use with vitamin deficiency * Supplement with 1 banana bag, thiamine PO, multivitamin PO (both via OGT) * Monitor CBC daily in critically ill patient Metabolic 1. Eleveated CPK on admission * CK 568 on admission, unsure how long patient unresponsive before prior to EMS arrival * CPK to be repeated 01/04/2017 * Closely monitor CPK (repeat level in AM) * Continue IVF and monitor renal function closely (0.9 today) * Hold nephrotoxins * Na this am: 141 Alimentary 1. OGT with tube feeds * Continue Jevity 1.2 alexys with goal rate 70 cc/h * IV Fluids have been discontinued today. Neuro 1. Significant psychiatric illness, including depression, anxiety and schizophrenia with suicidal ideation * Psych consult placed and appreciated, will follow up recommendations * Haldol discontinued, Continue Olanzapine 5mg Q6, we will hold for QTC > 475. If QTC is prolonged, psych may recommend Depakote or Primera. * Continue kimberly and soft restraints x 4 as patient is combative and pulling at lines * SW consult placed and appreciated 2. Toxic metabolic encephalopathy * Urine toxicology did show evidence of: >80.0 Cannabis Screen, >800 Benzodiazepine * Continue intubation for now as patient remains encephalopathic and combative * Continue soft restraints x 4/kimberly as patient is aggressive and agitated * Minimize use of propofol, continue ativan drip to keep adequate SAS, titre drip by 1 mg every 12 hours. * Follow QTC daily, today it is at 410. Repeat EKG every 12 hours. 3. Bacterial Conjunctivitis * Erythromycin, 1 edel x 4. Skin * Continue repositioning while patient intubated DVTP: Code: FULL Problem List: 1. Polysubstance overdose 2. Suicide attempt by drug ingestion 3. Suicide attempt 4. Depression Pain Ratin Tomorrow's Labs & Rationales: CBC ICU Bundle C Xray Plan DVT/Prophylaxis: pharmacological, Heparin SC Code Status: Full Code JASBIR BUSTAMANTE,[facility] 01/03/17 1329: Attending MD Review Statement Attending Sign Off Attending Cosign Statement: I have: examined this patient, reviewed avalbl EMR data, personally reviewd images, discussd w/resident/PA/CLINICAL SOCIAL WORK THERAPIST, discussed mgmt plan w/ryanne, discussed mgmt plan w/CM, discussed mgmt plan w/pt, agreed w/resident/PA/CLINICAL SOCIAL WORK THERAPIST, amended to note. Other Findings: PT with sig history of psychiatric illness with now sig etoh injection and polysub injestion per the notes Intubated and sedated still combative, ETT replaced as it had a leak again today Sig resp secretions, now growing staph history of etoh abuse per family and pt prob going through dts SIg psycosis in the past IMP REsp failure due to prob intentional od with multiple substances including etoh and marijuana and othe meds including seroquel possibly sig dts Sig Psych illness with recent PSychiatric admission with sig psycosis TOxic metabolic encephalopathy Suicidal ideation Mildly elevated cpk upon admision No sig qtc prolongation or arrthymia or active infection or met acidosis so far Fever and infiltrate with staph in the sputum REC keep intubated and sedated today With ativan. cont olanzapine and follow cpk and qtc and mag dily Bradford culture rpt sputum and start vanco and if the sputum from today shows gram neg rods add ceftaz aswelld Reduce propofol if tolerated and wean off and cont ativan Fentanyl patch reduce dose Cont tube feeding Dc ivf lasix one dose aggresive bowel regimen, supp Change to h2 cordelia for pud prophy Eye care Erythromycin ointment bid to the eye Mouth care and increase periodex mouth washes to q 8 hrs cont heparin sub cut WIll follow Update family if available today aswell Prog guarded
--- NOTE | 2017-01-03 07:22 | NUR ---
PATIENT TMAX AT 100.5 DR. AZEEM ANTONY WAS INFORMED AT 0500. BLOOD C/S X 2 AND SPUTYM CULTURE WAS DONE. ACETAMINOPHEN PER OCT PRN ORDER WAS GIVEN.
--- NOTE | 2017-01-03 09:10 | RADIOLOGY REPORT ---
EXAMINATION: XR PORTABLE CHEST CLINICAL INFORMATION: Status post NG tube placement, to check position. COMPARISON: Chest done on 01/02/2017. TECHNIQUE: Portable frontal view of the chest was obtained. FINDINGS: The tip of the ET tube is located approximately 5.7 cm above the level of the kaleb. The tip of the enteric tube is seen within the left upper abdomen projecting in the region of the fundus of the stomach. The cardiomediastinal silhouette is within normal limits. There is asymmetric haziness identified throughout the entire left hemithorax, which may represent the presence of a small effusion, underlying airspace disease including edema, infection or a combination thereof. The right hemithoracic lung field appears relatively clear except for possibly mild congestion. IMPRESSION: 1. The tip of the endotracheal tube is located approximately 5.7 cm above the level of the kaleb. 2. The tip of the enteric tube is located below the level of the left hemidiaphragm projecting in the region of the fundus of the stomach. 3. Nonspecific hazy opacity throughout the left hemithorax, which may represent layering pleural effusion versus underlying edema or infection.
--- NOTE | 2017-01-03 09:29 | RADIOLOGY REPORT ---
EXAMINATION: XR PORTABLE CHEST CLINICAL INFORMATION: Confirm ET tube placement. COMPARISON: Chest x-ray obtained earlier 01/03/2017. TECHNIQUE: Portable AP 65 degrees semierect view of the chest was obtained. FINDINGS: The tip of the endotracheal tube now lies 4 cm above the kaleb. The enteric tube is noted coiled in the gastric lumen superiorly. There are multiple monitor leads overlying the chest. Mild asymmetric lung volumes are redemonstrated, smaller superiorly on the right. There is no focal consolidation. Linear opacity at the left base is most consistent with atelectasis. The cardiac silhouette is normal. The central pulmonary vasculature appears normal. There are no pleural effusions. There are no acute osseous findings. IMPRESSION: 1. The endotracheal tube tip is now noted 4 cm above the kaleb. 2. Linear opacity at the left base is most consistent with atelectasis. The cardiac silhouette is normal in size. 3. There is stable asymmetry of the lung volumes, smaller at the right upper chest, likely due to osseous configuration.
--- NOTE | 2017-01-03 10:08 | PN- Psychiatry ---
Assessment/Plan Impression: Identifying Info: 51-year-old AA male brought in by ambulance to [facility] emergency department on [facility] on 12/29/16 status post disclosing to a friend that he was going to kill himself. He was intially unresponsive at home then became combative. Empty liquor and pill bottles were found around him in field. He was subsequently admitted to CCU with suspected Seroquel overdose. SUBJECTIVE (The patient remains sedated) Collateral obtained from Mother and cousin yesterday afternoon. They report the patient has a h/o of aggressive behavior and multiple previous suicide attempts. He recently moved to an apartment in [place] by himself and had been doing well. They cannot identify a precipitating incident for suicide attempt. Brief ROS Gait: NA Sleep: NA Appetite: NA OBJECTIVE Mental Status Exam Presentation/Appearance: Lying in hospital bed, sedated with vent and ET tube in place Orientation: NANDO Sensorium: Sedated Eye contact: None Affect: Flat Mood: NANDO, per staff report aggitated Depression: NANDO Anxiety: NANDO Thought Content: - Per reports SI - NANDO Thought Process: Poverty of content at present Associations: NANDO Speech:None Judgment: Impaired Insight: Impaired Cognition: Memory: NANDO Attention/Concentration: NANDO Fund of Knowledge: NANDO Abstractions:NANDO MMSE: NANDO Per attending report the patient does not appear to have overdosed on Seroquel based on pill count and refill history Per nuring report the pt again bit through his ET tube. There was attempt to wean off vent which was not well tolerated and reintubation was required. ASSESSMENT 51-year-old -[place] male with a h/o schizoaffective d/o and PSA presents status post reported suicide attempt. He has been combative and at present is intubated and sedated in the ICU. Whenever awoken patient attempts to assault staff. He would benefit from continued antipsychotic and mood stabilizing medication. At present he is likley experiencing delirium due to substances and substance withdrawl as well as a mood episode. Differential diagnosis Delirium due to multiple eitiologies Schizoaffective d/o Alcohol use d/o, moderate Cannabis use d/o, moderate Suggestion: 1. Please continue Zyprexa and continue to monitor QTc. Please contact psychiatry for recommendations if QTc greater than 475ms as pt will require a non-antipsychotic for mood and behavioral stabilization. Depakote or lithium would likely be agents of choice. 2. Patient is on PEC. Pt may not leave AMA. Plan for inpatient psychiatric admission pending medical clearance. 3. Please continue to reduce ativan by 20% daily. At present his Ativan drip is at 15mg/hr, it would be prudent to start reducing the dose by 3mg every day to prevent rebound confusion and agitation. 4. Pt will require sitter as sedation is decreased. Thank you for including psychiatry in this case, we will continue to follow. Subjective Subjective: as above Objective Last 24 Hrs of Vital Signs/I&O Current Medications Sig/Eraline Start time Last Medication Dose Route Stop Time Status Admin Acetaminophen 1,000 MG Q6P PRN 12/30 0030 AC 01/03 IV 0601 Bisacodyl 5 MG DAILY 01/02 1104 AC PO Dextrose/Sodium 1,000 ML Q13H 12/31 1445 AC 01/02 Chloride IV 1826 Fentanyl Citrate 25 MCG Q72H 01/01 0930 AC 01/01 TOP 1030 Heparin Sodium 5,000 UNIT Q8 12/30 0600 AC 01/03 (Porcine) SC 0554 Lorazepam 100 MG Q6H 01/03 1200 AC Dextrose/Water 1,000 ML IV Lorazepam 100 MG Q8H 01/02 1415 AC 01/03 Dextrose/Water 1,000 ML IV 01/03 1159 0555 Lorazepam 2 MG ONE ONE 01/02 1115 DC 01/02 IV 01/02 1116 1015 Lorazepam 100 MG Q7H / 1200 DC 01/02 Dextrose/Water 1,000 ML IV 0124 Magnesium Hydroxide 30 ML DAILY PRN 01/01 0945 AC PO Magnesium Sulfate 1 GM ONCE ONE 01/03 0715 AC Dextrose/Water 100 ML IV 01/03 1114 Methylene Blue 1 MG .[INTO OG TUBE] 01/02 1800 AC TOP-INJ Multivitamins 1 TAB DAILY 01/01 1319 AC 01/02 PO 0931 Olanzapine 5 MG Q6 01/01 1832 AC 01/03 PO 0555 Omeprazole 40 MG DAILY AC 01/03 0700 AC 01/03 PO 0636 Pantoprazole Sodium 40 MG DAILY 01/02 1000 DC 01/02 IV 0930 Polyethylene Glycol 17 GM DAILY 01/01 0945 AC 01/02 PO 0930 Propofol 1,000 MG Q4H 01/03 1000 AC N/A 100 ML IV Propofol 1,000 MG Q12H 12/30 0945 DC 01/03 N/A 100 ML IV 01/03 1159 0105 Senna 187 MG AT BEDTIME 01/02 2200 AC 01/02 PO 2230 Thiamine HCl 50 MG DAILY 01/01 1319 AC 01/02 PO 0931 Laboratory Tests 01/03/17 0310: Anion Gap 10, Estimated GFR > 60, Glucose 111 H, Calcium 8.3 L, Phosphorus 3.9 , Magnesium 1.8, Total Bilirubin 0.5, AST 18, ALT 36, Albumin 3.0 L, CBC w Diff NO MAN DIFF REQ, RBC 4.10 L, MCV 100.9 H, MCH 33.7 H, RDW 12.7, MPV 8.2, Gran % 67.9, Lymphocytes % 20.1 L, Monocytes % 8.4, Eosinophils % 3.1, Basophils % 0.5, Absolute Granulocytes 4.8, Absolute Lymphocytes 1.4, Absolute Monocytes 0.6 , Absolute Eosinophils 0.2, Absolute Basophils 0, PUBS MCHC 33.4 Vital Signs Date Time Temp Pulse Resp B/P B/P Pulse O2 O2 Flow FiO2 Mean Ox Delivery Rate 01/03 0903 30 05 0706 99.8 05 0700 99.8 104 19 114/63 98 Ventilator 30% 05 0601 100.5 05 0600 99.8 92 18 108/55 05/05 0400 100.5 102 28 120/65 05/05 0400 98 Ventilator 30% 0505 0330 30 05/05 0035 30 05/05 0000 100.5 94 19 110/61 05/05 0000 95 Ventilator 30% 05/ 2300 100.5 88 19 105/60 99 Ventilator 30% 05/04 2227 30 05/04 2200 99.9 96 23 139/81 05/04 1999 99.9 86 17 118/78 05/04 2000 100 Ventilator 30% 05/04 1905 30 05/04 1600 30 05/04 1600 99.3 78 18 110/58 05/04 1600 99.3 78 18 110/58 100 Ventilator 30% 05/04 1600 5 Ventilator 30% 05/04 1400 98.9 76 18 119/79 05/04 1346 30 05/04 1200 98.7 82 18 115/73 05/04 1200 5 Ventilator 30% 05/04 1048 30 Intake & Output 01/03 1600 01/03 0800 01/03 0000 Intake Total 2539 2618.4 Output Total 2290 2180 Balance 249 438.4 Intake, IV 1759 1778.4 Intake, Other 780 780 Intake, Tube 60 Irrigant Output, 60 Gastric Drainage Output, Urine 2290 2120
--- NOTE | 2017-01-03 10:44 | NUR ---
UPON AM ASSESSMENT, PT NOTED TO BE BREATHING AROUND ETT, OCCASIONALY ONLY RECIEVING PARTIAL TIDAL VOLUMES. AUDIT LEAD BALLOON NOTED TO BE DEFLATED. 3 ML OF 02 INSERTED INTO BALLOON WITH MINIMAL EFFECTIVENESS. RT CALLED TO BEDSIDE TO ASSESS. PT HAD APPEARANTLY BITTEN THROUGH TUBE AND LEAK WAS PRESENT. DR MARTELL NOTIFIED AND ORDERED FOR THE ETT TO BE REPLACED. ANESTHESIA CALLED TO BEDSIDE AND REPLACED ETT. SMALL AMOUNT OF BLOOD PRESENT IN ETT WHEN INTUBATED. SINCE, ONLY BLOOD TINGE SECRETIONS PRESENT. PT'S PROPOFOL WAS INCREASED TO 50 MCG/MIN FOR PROCEDURE THEN TITRATED OFF TO MAINTAIN A SAS OF 3. CXR OBTAINED TO CONFIRM ETT AND OGT PLACEMENT.
--- NOTE | 2017-01-03 18:56 | NUR ---
TEMP AT 1200 101.7, PT GIVEN IV TYLENOL AND ICE PACK TO NECK AND AXILLARY. REPORTED TO DR SPENCER. SENT. AT 1800 TEMP 100.6, TYLENOL IV GIVEN AND ICE APPLIED TO NECK. DR SPENCER NOTIFIED.
[2017-01-04] VITALS (9 sets, daily range): BP systolic 106–134; BP diastolic 65–88
--- NOTE | 2017-01-04 02:06 | NUR ---
At approx 0100, patient seen to be sitting up and reaching up with both arms for ETT. Soft restraints in place on all 4 extremities and kimberly vest in place. When this RN approached the bedside to try and calm patient, patient was able to pull right leg restraint off and kick at staff. Patient is very agitated with an SAS of 7, and is pulling at all restraints and coming within an inch or two or removing ETT. This RN calls for help to hold patient and replace restraints. It takes 3 staff members to hold patient and he is still able to fight off staff. At this point security and housestaff are called, and patient is placed into 4- point hard restraints for aggresive behaviors. Ativan gtt increased back up to 15mg/hr for sedation. Patient remains very agitated. Circulation checks and restraint checks completed [id number]. Will cont to closely monitor this patient.
--- NOTE | 2017-01-04 02:35 | NUR ---
0225- Patient remains very agitated with a SAS of 6-7. Propofol is restarted at this time per EMAR. Patient remains in 4 point hard restraints with a 1:1 sitter at bedside. Will cont to closely monitor.
[2017-01-04 04:56] LABS: ABSOLUTE BASOPHIL COUNT 0 /CUMM (0.0-0.2); ABSOLUTE EOSINOPHIL COUNT 0.2 /CUMM (0.0-0.7); ABSOLUTE GRANULOCYTE CT 6.3 /CUMM (1.4-6.5); ABSOLUTE LYMPH COUNT 1.7 /CUMM (1.2-3.4); ABSOLUTE MONOCYTE COUNT 0.9 /CUMM (0.10-0.60); BASOPHIL % 0.2 % (0.0-2.0); EOSINOPHIL % 2.1 % (0-5); GRANULOCYTE % 69.3 % (42.2-75.2); HEMATOCRIT 37.9 % (42-52); MEAN CORPUSCULAR HGB 34.5 PG (27.0-31.0); MEAN CORPUSCULAR HGB CONC 34.1 G/DL (33.0-37.0); MEAN CORPUSCULAR VOLUME 101.3 FL (80.0-94.0); MEAN PLATELET VOLUME 8.7 FL (7.4-10.4); PLATELET COUNT 204 /CUMM (130-400); RBC DISTRIBUTION WIDTH 12.7 % (11.5-14.5); RED BLOOD CELL CT 3.74 /CUMM (4.70-6.10); WHITE BLOOD CELL COUNT 9.1 /CUMM (4.8-10.8)
--- NOTE | 2017-01-04 07:16 | RADIOLOGY REPORT ---
EXAMINATION: XR PORTABLE CHEST CLINICAL INFORMATION: Intubated. Check ET tube placement. COMPARISON: Previous chest x-rays most recent from yesterday TECHNIQUE: Portable frontal view of the chest was obtained. FINDINGS: The cardiac and mediastinal contours are stable. Endotracheal tube tip is 4 cm above the kaleb. Nasogastric tube tip projects over the stomach. The lung apices are not included in the [id number]. The lungs are clear. There is no pleural effusion or pneumothorax. IMPRESSION: Satisfactory position of ET tube and nasogastric tube.
--- NOTE | 2017-01-04 08:05 | PN- Resident CRCU ---
Subjective HPI/CRCU Issues: 1- Acute hypercapnic respiratory failure likely due to substance ingestion, including marijuana, seroquel and ETOH 2- Possible aspiration Pneumonia 3- on Tube feeding 4- Significant psychiatric illness, including depression, anxiety and schizophrenia with suicidal ideation 5- Toxic metabolic encephalopathy 6- Bacterial Conjunctivitis 24 Hour Events: Patient was combative and agitated, trying to get his endotracheal tube out both during the day yesterday and overnight, he continues to require propofol and is on Ativan drip. No overnight events on telemetry. Remains intubated. Objective Vital Signs & I&O Last 8 Hrs of Vitals and I&O: max Temp 99.2 [place] 70-90 RR 18-28 BP systolic 103 - 135 BP diastolic 61-77 ventilation setting: rate 18/TV 500/FiO2 30%/PEEP 5 SO2 97-100% I 1758 O 1700 Exam General Appearance: well developed/nourished, no apparent distress, sedated, intubated Head: atraumatic, normal appearance Ears, Nose, Throat: normal ENT inspection Neck: normal inspection Respiratory: clear lungs in exam, no wheezing and rhonchi heard. Cardiovascular: regular rate/rhythm Gastrointestinal: soft, non-tender Extremities: normal inspection, normal capillary refill, no edema Cranial Nerves: PERRL Skin: intact, warm/dry Skin Temp/Moisture Exam: Warm/Dry Sepsis Skin Exam (color): Normal for Ethnicity Weaning Schedule Start Time: 1135 Minute Volume: 10.1 Resp Rate: 20 Vt: 410 Heart Rate: 84 Current Medications: Current Medications Sig/Earline Start time Last Medication Dose Route Stop Time Status Admin Acetaminophen 1,000 MG .STK-MED ONE 01/03 1822 DC IV 01/03 1823 Acetaminophen 1,000 MG .STK-MED ONE 01/03 1157 DC IV 01/03 1158 Acetaminophen 1,000 MG Q6P PRN 12/30 0030 AC 01/03 IV 1822 Bisacodyl 10 MG ONCE ONE 01/03 1200 DC 01/03 [place] 01/03 1201 1325 Bisacodyl 5 MG DAILY 01/02 1104 AC / PO 0810 Chlorhexidine 15 ML TID 01/03 1600 AC 01/04 Gluconate PO 0811 Dextrose/Sodium 1,000 ML Q13H 12/31 1445 DC 01/03 Chloride IV 1125 Erythromycin 1 EDEL 4 TIMES/DAY 01/03 1149 AC 05/ OPH 05/06 2200 0811 Famotidine 20 MG BID 05/ 1152 AC 05/ PO 0810 Fentanyl Citrate 12 MCG Q72H / 0930 AC 05/ TOP 0821 Fentanyl Citrate 25 MCG Q72H / 0930 DC 05/ TOP 1030 Furosemide 20 MG ONCE ONE 01/03 1430 DC 05/ PO 05 1431 1441 Heparin Sodium 5,000 UNIT Q8 12/30 0600 AC 01/04 (Porcine) SC 0631 Lorazepam 100 MG Q6H / 1200 AC / Dextrose/Water 1,000 ML IV 0309 Lorazepam 100 MG Q8H 01/02 1415 DC 01/03 Dextrose/Water 1,000 ML IV 01/03 1159 0555 Magnesium Hydroxide 30 ML DAILY PRN 01/01 0945 AC PO Magnesium Sulfate 1 GM ONCE ONE 01/03 1200 DC 05 Dextrose/Water 100 ML IV 01/03 1559 1326 Magnesium Sulfate 1 GM ONCE ONE 01/03 0715 DC 01/03 Dextrose/Water 100 ML IV 01/03 1114 1011 Methylene Blue 1 MG .[INTO OG TUBE] 01/02 1800 AC TOP-INJ Multivitamins 1 TAB DAILY 01/01 1319 AC 01/04 PO 0810 Olanzapine 5 MG Q6 / 1832 AC / PO 0631 Omeprazole 40 MG DAILY AC 01/03 0700 DC 05 PO 0636 Polyethylene Glycol 17 GM DAILY / 0945 AC / PO 0811 Propofol 1,000 MG Q4H /05 1000 AC / N/A 100 ML IV 0813 Senna 187 MG ONCE ONE 01/03 1200 DC 05/05 PO 0505 1201 1324 Senna 187 MG AT BEDTIME 01/02 2200 AC 05/ PO 2230 Thiamine HCl 50 MG DAILY / 1319 AC / PO 0811 Vancomycin HCl 1,250 MG Q12H / 1300 AC 05/ Sodium Chloride 250 ML IV 0032 Vancomycin HCl 1,000 MG Q12 / 1156 CAN Sodium Chloride 250 ML IV / 2159 Impression/Plan Impression/Problem List Impression: Mr. Kinney is a 51 year old male with PMH depression, anxiety, schizophrenia and suicidal ideation previously admitted to [facility] in 2016 who was brought to the [facility] ED via ambulance due to episode of unresponsiveness. The patient was noted to have called a friend before this episode of unresponsiveness and noted he "wanted to kill himself". Patient was found laying next to nips of liquor and an empty bottle of seroquel (he may have taken approximately 40 tabs of 100 mg seroquel each). In the ED: Patient was combative, yelling and had slurred speech. He was administered 3 doses naloxone and 10 mg olanzapine. Patient was intubated after episodes of apnea and unresponsiveness. Vital signs at this time included afebrile, HR 100-140, BP 108/80. Pertinent labs included CK 568, troponin negative, toxicology + for benzos/cannabis. Alcohol 215. Lactate 2.2. Head CT done was negative. CXR showed no acute abnormality. Patient is admitted to the ICU and the following is the management: Respiratory 1. Acute hypercapnic respiratory failure likely due to substance ingestion, including marijuana, seroquel and ETOH * Patient remains intubated with AC, TV 500, FiO2 30, PEEP 5, RR 18 * Propofol drip being used sparingly and patient on ativan drip * Continue fentanyl patch Q78, reduced patch to 12.0 mcg Q72H. * Sputum cx ordered, growing Staph aureus, will follow sensitivities * F/U daily CXR while patient intubated * Ranitadine OGT while intubated * Patient has not had a BM yet. Aggressive bowel regimen, Senna and Dulcolax S. * Elevate head of bed/aspiration precuations 2. Aspiration Pneumonia * Patient is afebrile, last temperature: 97.7 F, on Vancomycin 1250 mg q12. * LRC is not + for GNR, will hold off on Ceftazidime. Infectious * afebrile * WBC 9.1. Repeat CBC in AM * Follow up sputum culture senitivities * Of note, CXR this AM negative for pulmonary process Cardiac * Monitor vital signs Q1H * No active cardiac issues at this present time * Lasix 20 mg PO Heme 1. Macrocytosis * MCV 101.3 * Likely 2/2 chronic alcohol use with vitamin deficiency * Supplement with folic acid, thiamine, multivitamin (both via OGT) * Monitor CBC daily in critically ill patient Metabolic 1. Eleveated CPK on admission * CK 568 on admission, unsure how long patient unresponsive before prior to EMS arrival * CPK repeated 01/04/2017: 189 * Closely monitor CPK (repeat level in AM) * Continue IVF and monitor BUN/Cr closely (6/0.7 today) * Hold nephrotoxins * Na this am: 131, repet came back 139, most liky the former was an error Alimentary 1. OGT with tube feeds * Continue Jevity 1.2 alexys with goal rate 70 cc/h * off of IV Fluids since yesterday Neuro 1. Significant psychiatric illness, including depression, anxiety and schizophrenia with suicidal ideation * Psych consult placed and appreciated, will follow up recommendations * Haldol discontinued, Continue Olanzapine 5mg Q6, we will hold for QTC > 475. If QTC is prolonged, psych may recommend Depakote or [place]. QTc today is 417. * Continue kimberly and soft restraints x 4 as patient is combative and pulling at lines * SW consult placed and appreciated 2. Toxic metabolic encephalopathy * Urine toxicology did show evidence of: >80.0 Cannabis Screen, >800 Benzodiazepine * Continue intubation for now as patient remains encephalopathic and combative * Continue soft restraints x 4/kimberly as patient is aggressive and agitated * Minimize use of propofol, continue ativan drip to keep adequate SAS, titre drip by 1 mg every 12 hours. * Follow QTC daily, yesterday was at 410, repeated today QTc is 417. * Repeat EKG every 12 hours. 3. Bacterial Conjunctivitis * Erythromycin, 1 edel x 4. Skin * Continue repositioning while patient intubated DVTP: pharmacological, Heparin SC Problem List: 1. Respiratory acidosis 2. Polysubstance overdose 3. Suicide attempt by drug ingestion 4. Suicide attempt 5. Depression Pain Ratin Tomorrow's Labs & Rationales: CBC, ICU bundle, CPK (monitor H/H, electrolytes, kidney fx, CPK) Plan DVT/Prophylaxis: pharmacological, Heparin SC Code Status: Full Code
--- NOTE | 2017-01-04 09:55 | PN- CRCU ---
Subjective HPI/Critical Care Issues: Patient remains intubated and sedated he was previously afebrile cultures and sputum grew staph though his chest x-ray reports no acute findings Objective Current Medications: Current Medications Sig/Earline Start time Last Medication Dose Route Stop Time Status Admin Acetaminophen 1,000 MG .STK-MED ONE 01/03 1822 DC IV 01/03 1823 Acetaminophen 1,000 MG .STK-MED ONE 01/03 1157 DC IV 01/03 1158 Acetaminophen 1,000 MG Q6P PRN 12/30 0030 AC 05 IV 1822 Bisacodyl 10 MG ONCE ONE 01/03 1200 DC 05/ CA 05 1201 1325 Bisacodyl 5 MG DAILY 01/02 1104 AC 01/04 PO 0810 Chlorhexidine 15 ML TID 01/03 1600 AC 01/04 Gluconate PO 0811 Dextrose/Sodium 1,000 ML Q13H 12/31 1445 DC 01/03 Chloride IV 1125 Erythromycin 1 YVETTE 4 TIMES/DAY 01/03 1149 AC 01/04 OPH 01/04 2200 0811 Famotidine 20 MG BID 01/03 1152 AC 01/04 PO 0810 Fentanyl Citrate 12 MCG Q72H / 0930 AC 01/04 TOP 0821 Fentanyl Citrate 25 MCG Q72H / 0930 DC 01/01 TOP 1030 Furosemide 20 MG ONCE ONE 01/03 1430 DC / PO 05 1431 1441 Heparin Sodium 5,000 UNIT Q8 / 0600 AC 01/04 (Porcine) SC 0631 Lorazepam 100 MG Q6H / 1200 AC 01/04 Dextrose/Water 1,000 ML IV 0309 Lorazepam 100 MG Q8H / 1415 DC 05/ Dextrose/Water 1,000 ML IV 01/03 1159 0555 Magnesium Hydroxide 30 ML DAILY PRN 01/01 0945 AC PO Magnesium Sulfate 1 GM ONCE ONE 01/03 1200 DC 01/03 Dextrose/Water 100 ML IV 01/03 1559 1326 Magnesium Sulfate 1 GM ONCE ONE 01/03 0715 DC 05 Dextrose/Water 100 ML IV 01/03 1114 1011 Methylene Blue 1 MG .[INTO OG TUBE] 01/02 1800 AC TOP-INJ Multivitamins 1 TAB DAILY 01/01 1319 AC 01/04 PO 0810 Olanzapine 5 MG Q6 01/01 1832 AC 01/04 PO 0631 Omeprazole 40 MG DAILY AC 01/03 0700 DC 01/03 PO 0636 Polyethylene Glycol 17 GM DAILY 01/01 0945 AC 01/04 PO 0811 Propofol 1,000 MG Q4H 01/03 1000 AC 05 N/A 100 ML IV 0813 Senna 187 MG ONCE ONE 01/03 1200 DC 01/03 PO 01/03 1201 1324 Senna 187 MG AT BEDTIME 01/02 2200 AC 01/02 PO 2230 Thiamine HCl 50 MG DAILY 01/01 1319 AC 01/04 PO 0811 Vancomycin HCl 1,250 MG Q12H 01/03 1300 AC 01/04 Sodium Chloride 250 ML IV 0032 Vancomycin HCl 1,000 MG Q12 01/03 1156 CAN Sodium Chloride 250 ML IV 01/03 2159 Vital Signs & I&O Last 24 Hrs of Vitals and I&O: Vital Signs Date Time Temp Pulse Resp B/P B/P Pulse O2 O2 Flow FiO2 Mean Ox Delivery Rate 01/04 0834 30 05/06 0800 99 Ventilator 30% 05/06 0800 97.7 79 18 108/65 98 Ventilator 30% 05/06 0614 30 05/06 0600 99.2 70 18 112/68 05/06 0400 99.2 88 18 134/88 05/06 0400 98 Ventilator 30% 05/06 0311 30 05/06 0200 99.0 97 18 113/66 05/06 0118 30 05/06 0000 99.1 80 18 116/70 05/06 0000 98 Ventilator 30% 05/06 0000 99.1 80 18 116/70 98 Ventilator 30% 05/05 2200 99.4 80 18 120/64 05/05 2140 30 05/05 1999 99.4 82 18 118/64 05/05 1999 99 Ventilator 30% 05/05 1925 99.4 05/05 1925 30 05/05 1822 100.6 05/05 1800 100.6 83 18 116/68 05/05 1600 98.8 84 18 138/92 05/05 1600 95 Ventilator 30% 05/05 1600 98.9 84 18 138/92 96 Ventilator 30% 05/05 1559 30 05/05 1400 100.8 103 18 127/68 05/05 1345 30 05/05 1326 101.3 05/05 1200 101.7 95 18 109/69 05/05 1200 96 Ventilator 30% 05 1156 101.7 01/03 1142 30 05/ 1000 99.7 97 18 113/61 05 1000 99.7 97 18 /61 Intake & Output 01/04 1600 01/04 0800 05/ 0000 Intake Total 1758 2365 Output Total 1700 1600 Balance 58 765 Intake, IV 1183 1530 Intake, Tube 465 555 Feeding Intake, Tube 110 280 Irrigant Number 1 Bowel Movements Output, Urine 1700 1600 Oxygen saturation FiO2 30% 99% exam of his chest shows occasional rhonchi cardiac exam shows regular S1 and S2 without murmurs abdomen is soft nontender ventilator settings were reviewed Impression/Plan Impression/Plan Impression/Plan: 51-year-old with restricted failure thought secondary to be a result of toxic ingestion Recommendations: Attempt to taper Ativan slowly. Follow-up on sensitivities of staph to determine whether antibiotics can be adjusted if he remains febrile fully reculture continue current ventilatory settings Code Status: Full Code
--- NOTE | 2017-01-04 16:00 | NUR ---
ASSUMED CARE OF PATIENT. PATIENT SEDATE BUT AWAKENS QUICKLY TO TACTILE STIMULATION. BECOMES VERY AGITATED DURING MOUTH CARE BUT CALMS QUICKLY WHEN STIUMLUS REMOVED. MARLYN, MOVES ALL EXTREMITIES BUT NO MOVEMENT ON COMMOND, VERY STRONG MOVEMENT. HEART SOUNDS NORMAL, LUNGS CLEAR, ET TUBE INTACT AND REMAINS ON VENTILATOR. NORMAL BOWEL SOUNDS WITH FLATUS, PORTILLO INTACT DRAINING CLEAR URINE. SKIN INTACT WITH REDNESS TO R FOREARM.
[2017-01-05] VITALS (9 sets, daily range): BP systolic 112–142; BP diastolic 61–87
[2017-01-05 04:53] LABS: ABSOLUTE BASOPHIL COUNT 0 /CUMM (0.0-0.2); ABSOLUTE EOSINOPHIL COUNT 0.3 /CUMM (0.0-0.7); ABSOLUTE GRANULOCYTE CT 7.3 /CUMM (1.4-6.5); ABSOLUTE LYMPH COUNT 1.3 /CUMM (1.2-3.4); ABSOLUTE MONOCYTE COUNT 0.9 /CUMM (0.10-0.60); BASOPHIL % 0.2 % (0.0-2.0); EOSINOPHIL % 3.1 % (0-5); GRANULOCYTE % 73.9 % (42.2-75.2); HEMATOCRIT 37.6 % (42-52); MEAN CORPUSCULAR HGB 34.3 PG (27.0-31.0); MEAN CORPUSCULAR HGB CONC 33.9 G/DL (33.0-37.0); MEAN CORPUSCULAR VOLUME 101.2 FL (80.0-94.0); MEAN PLATELET VOLUME 8.7 FL (7.4-10.4); PLATELET COUNT 238 /CUMM (130-400); RBC DISTRIBUTION WIDTH 12.7 % (11.5-14.5); RED BLOOD CELL CT 3.71 /CUMM (4.70-6.10); WHITE BLOOD CELL COUNT 9.9 /CUMM (4.8-10.8)
--- NOTE | 2017-01-05 05:05 | NUR ---
PT INTUBATED AT 30% FIO2, SATURATION 96-99%. MINIMAL YELLOW SECRETIONS OBTAINED WHEN SUCTIONED. TOLERATING TF OF FS JEVITY 1.2 AT 70ML/H VIA OGT. PROPOFOL GTT AT 10MCG AND ATIVAN GTT AT 15MG. PT CONTINUES TO HAVE EPISODES OF RESTLESSNES. PORTILLO IN PLACE, ADEQUATE UO NOTED.
--- NOTE | 2017-01-05 06:49 | PN- Resident CRCU ---
Subjective HPI/CRCU Issues: Mr. Kinney was seen and examined this morning. Resting comfortably in bed. He is minimally responsive and attempts to open his eyes when prompted. He continues to be intubated. He is receiving propofol and Ativan. Unable to elicit any complaints. 24 Hour Events: No events reported overnight. Objective Vital Signs & I&O Last 8 Hrs of Vitals and I&O: T: 101.8 MN: 101 RR: 20 BP: 131/65 Eckert Output: UI:1650 UII: 2265 UIII: 1700 Intake & Output 01/05 1600 Intake Total Output Total Balance Patient 76.799 kg Weight Weight Bed scale Measurement Method Exam General Appearance: well developed/nourished, awake, sedated, intubated Head: atraumatic Respiratory: normal breath sounds Cardiovascular: regular rate/rhythm Gastrointestinal: normal bowel sounds, soft, non-tender Extremities: normal inspection Skin: intact Skin Temp/Moisture Exam: Warm/Dry Weaning Schedule Start Time: 1135 Minute Volume: 10.1 Resp Rate: 20 Vt: 410 Heart Rate: 84 Current Medications: Current Medications Sig/Earline Start time Last Medication Dose Route Stop Time Status Admin Acetaminophen 1,000 MG Q6P PRN 12/30 0030 AC 01/05 IV 1022 Bisacodyl 5 MG DAILY 01/02 1104 DC 01/04 PO 0810 Cefazolin Sodium 1,000 MG Q8H 01/05 1200 AC IV Chlorhexidine 15 ML TID 01/03 1600 AC 01/05 Gluconate PO 0815 Erythromycin 1 EDEL 4 TIMES/DAY 01/03 1149 DC 01/04 OPH 01/04 2200 2212 Famotidine 20 MG BID 01/03 1152 AC 01/05 PO 1013 Fentanyl Citrate 12 MCG Q72H 01/04 0930 AC 01/04 TOP 0821 Heparin Sodium 5,000 UNIT Q8 12/30 0600 AC 01/05 (Porcine) SC 0537 Lorazepam 100 MG Q6H / 1200 AC / Dextrose/Water 1,000 ML IV 0537 Magnesium Hydroxide 30 ML DAILY PRN 01/01 0945 AC PO Methylene Blue 1 MG .[INTO OG TUBE] 01/02 1800 AC TOP-INJ Multivitamins 1 TAB DAILY 01/01 1319 AC 01/05 PO 1013 Olanzapine 5 MG Q6 01/01 1832 AC 05/07 PO 1200 Polyethylene Glycol 17 GM DAILY 01/01 0945 DC 01/04 PO 0811 Propofol 1,000 MG Q4H 01/03 1000 AC 01/05 N/A 100 ML IV 0541 Senna 187 MG AT BEDTIME PRN 01/05 0756 AC PO Senna 187 MG AT BEDTIME 01/02 2200 DC 05/ PO 2214 Thiamine HCl 50 MG DAILY 01/01 1319 AC 01/05 PO 1013 Vancomycin HCl 1,250 MG Q12H 01/03 1300 DC 01/05 Sodium Chloride 250 ML IV 0115 Impression/Plan Impression/Problem List Impression: Mr. Kinney is a 51 year old male with PMH depression, anxiety, schizophrenia and suicidal ideation previously admitted to [facility] in 2016 who was brought to the [place] ED via ambulance due to episode of unresponsiveness. The patient was noted to have called a friend before this episode of unresponsiveness and noted he "wanted to kill himself". Patient was found laying next to nips of liquor and an empty bottle of seroquel (he may have taken approximately 40 tabs of 100 mg seroquel each). In the ED: Patient was combative, yelling and had slurred speech. He was administered 3 doses naloxone and 10 mg olanzapine. Patient was intubated after episodes of apnea and unresponsiveness. Vital signs at this time included afebrile, HR 100-140, BP 108/80. Pertinent labs included CK 568, troponin negative, toxicology + for benzos/cannabis. Alcohol 215. Lactate 2.2. Head CT done was negative. CXR showed no acute abnormality. Patient is admitted to the ICU and the following is the management: Respiratory 1. Acute hypercapnic respiratory failure likely due to substance ingestion, including marijuana, seroquel and ETOH * Patient remains intubated with AC, TV 500, FiO2 30, PEEP 5, RR 18. * ABG, ordered. * Propofol drip being used sparingly and patient on ativan drip * Continue fentanyl patch Q78, will reduce patch to 12.0 mcg Q72H. * F/U daily CXR while patient intubated * Famotidine 20 mg BID while intubated * Aggressive bowel regimen, Senna and Dulcolax S . * Elevate head of bed/aspiration precuations * Continue aggressive oral Care. 2. Aspiration Pneumonia * Patient has continued to be febrile, last temperature: 100.3 F. * Vancomycin 1250 mg was discontinued and patient started on Cefazolin Sodium 1000 Q8. * If patient continues to remain febrile, consider ID consultation in AM. * LRC: S. Aureus. Sensitivities reported Infectious * Patient is febrile without leukocytosis close clinical monitoring for aspiration pneumonia * WBC 9.9. Repeat CBC in AM Cardiac * Monitor vital signs Q1H * No active cardiac issues at this present time * Can consider Lasix PO 20 mg in AM, patient appears fluid overloaded on clinical presentation. Heme 1. Macrocytosis * Patient noted to have MCV 100.5 * Likely 2/2 chronic alcohol use with vitamin deficiency * Supplement with thiamine PO, multivitamin PO (both via OGT) * Monitor CBC daily in critically ill patient Metabolic 1. Eleveated CPK on admission * CK 568 on admission, unsure how long patient unresponsive before prior to EMS arrival * CK: 133 Alimentary 1. OGT with tube feeds * Continue Jevity 1.2 alexys with goal rate 70 cc/h * IV Fluids have been discontinued. Neuro 1. Significant psychiatric illness, including depression, anxiety and schizophrenia with suicidal ideation * Psych consult placed and appreciated, will follow up recommendations * Haldol discontinued, Continue Olanzapine 5mg Q6, we will hold for QTC > 475. If QTC is prolonged, psych may recommend Depakote or [place]ion. * Continue kimberly and soft restraints x 4 as patient is combative and pulling at lines * SW consult placed 2. Toxic metabolic encephalopathy * Urine toxicology did show evidence of: >80.0 Cannabis Screen, >800 Benzodiazepine * Continue intubation for now as patient remains encephalopathic and combative * Continue soft restraints x 4/kimberly as patient is aggressive and agitated * Minimize use of propofol, * Continue ativan drip to keep adequate SAS 3, reduce drip by 1 mg every 12 hours. Current rate: 13 mg/hr. * Follow QTC, 404. Repeat EKG 01/06/2017. 3. Bacterial Conjunctivitis, #Resolved * Erythromycin, 1 edel x 4. Skin * Continue repositioning while patient intubated DVTP: Code: FULL Problem List: 1. Polysubstance overdose 2. Suicide attempt by drug ingestion 3. Suicide attempt 4. Depression Pain Ratin Tomorrow's Labs & Rationales: ICU Bundle CBC C -Xray Plan DVT/Prophylaxis: pharmacological, Heparin SC Code Status: Full Code
--- NOTE | 2017-01-05 08:00 | NUR ---
REC'D THE PT ORALLY INTUBATED AND MECHANICALLY VENTILATED PER MD ORDER. PT IS SEDATED ON ATIVAN AT 15MG/HR OR 150ML/HR VIA A #20 TO THE RF WELL PROPOFOL AT 15MCG/MIN OR 7.3ML/HR INFUSING VIA A #20 TO THE [place]. THE SAS IS A 3. PUPILS ARE EQUAL AND REACTIVE, VICTORIA. REMAINS IN SOFT RESTRAINTS X4 WELL A CHIOMA PT PERIODICALLY WAKES UP AND BECOMES VERY AGITATED, PULLING AT LINES AND ATTEMPTING TO GET OOB. PT IS IN A NSR/ST WITH OCC PAC PER THE DENTAL SERVICES DIRECTOR. JODIE BS ARE CLEAR BUT DIMINISHED AT THE BASES, O2 SAT IS 95% ON AN FIO2 OF 30%. SUCTIONED FOR LG AMOUNTS OF CREAMY LOUIS SPUTUM. SUCTIONED ORALLY FOR LG AMOUNTSOF CLEAR SECRETIONS. MOUTH CARE PERFORMED. ABD IS SOFT WITH NORMOACTIVE BOWEL SOUNDS. JEVITY 1.2 INFUSING AT 70ML/HR(GOAL RATE) VIA AN OGT. WATER FLUSHES 110ML Q4H. NO RESIDUAL NOTED. PORTILLO INPLACE DRAINING LARGE AMOUNTS OF CLEAR YELLOW URINE.
--- NOTE | 2017-01-05 10:49 | PN- CRCU ---
Subjective HPI/Critical Care Issues: Patient remains sedated on Ativan and propofol Objective Current Medications: Current Medications Sig/Earline Start time Last Medication Dose Route Stop Time Status Admin Acetaminophen 1,000 MG Q6P PRN 12/30 0030 AC 01/05 IV 1022 Bisacodyl 5 MG DAILY 01/02 1104 DC 01/04 PO 0810 Chlorhexidine 15 ML TID 01/03 1600 AC 01/05 Gluconate PO 0815 Erythromycin 1 YVETTE 4 TIMES/DAY 01/03 1149 DC 01/04 OPH 01/04 2200 2212 Famotidine 20 MG BID 01/03 1152 AC 01/05 PO 1013 Fentanyl Citrate 12 MCG Q72H 01/04 0930 AC 01/04 TOP 0821 Heparin Sodium 5,000 UNIT Q8 12/30 0600 AC 01/05 (Porcine) SC 0537 Lorazepam 100 MG Q6H 01/03 1200 AC 01/05 Dextrose/Water 1,000 ML IV 0537 Magnesium Hydroxide 30 ML DAILY PRN 01/01 0945 AC PO Methylene Blue 1 MG .[INTO OG TUBE] 01/02 1800 AC TOP-INJ Multivitamins 1 TAB DAILY 01/01 1319 AC 01/05 PO 1013 Olanzapine 5 MG Q6 01/01 1832 AC 01/05 PO 0538 Polyethylene Glycol 17 GM DAILY 01/01 0945 DC 01/04 PO 0811 Propofol 1,000 MG Q4H 01/03 1000 AC 01/05 N/A 100 ML IV 0541 Senna 187 MG AT BEDTIME PRN 01/05 0756 AC PO Senna 187 MG AT BEDTIME 01/02 2200 DC 01/04 PO 2214 Thiamine HCl 50 MG DAILY 01/01 1319 AC 01/05 PO 1013 Vancomycin HCl 1,250 MG Q12H 01/03 1300 AC 01/05 Sodium Chloride 250 ML IV 0115 Vital Signs & I&O Last 24 Hrs of Vitals and I&O: Vital Signs Date Time Temp Pulse Resp B/P B/P Pulse O2 O2 Flow FiO2 Mean Ox Delivery Rate 01/05 1022 101.5 01/05 0805 30 01/05 0800 100.5 102 20 130/68 / 0800 95 Ventilator 30% / 0800 100.5 102 20 130/68 95 Ventilator 30% / 0600 109 28 140/68 01/05 0547 30 05/07 0400 97 Ventilator 30% 05/07 0301 30 05/07 0200 111 20 117/87 05/07 0052 30 05/07 0000 99.2 92 18 130/70 05/07 0000 97 Ventilator 30% 05/07 0000 99.2 92 18 130/70 97 Ventilator 30% 05/06 2248 30 05/06 2200 98 18 127/68 05/06 2000 30 05/06 2000 99.2 79 18 106/66 05/06 2000 98 Ventilator 30% 05/06 1800 80 18 117/75 05/06 1620 30 05/06 1600 98.6 84 18 110/70 05/06 1600 100 Ventilator 30% 05/06 1600 98.6 84 18 110/70 100 Ventilator 30% 05/06 1356 30 05/06 1200 95 Ventilator 30% 05/06 1049 30 Intake & Output / 1600 05/07 0800 05/07 0000 Intake Total 1973 2020 Output Total 1700 2265 Balance 273 -245 Intake, IV 1278 1240 Intake, Tube 475 560 Feeding Intake, Tube 220 220 Irrigant Output, Urine 1700 2265 Patient 169 lb Weight Weight Bed scale Measurement Method Oxygen saturation summary percent 100% exam of his chest shows clear lung kenney cardiac exam shows regular S1 and S2 without murmurs Impression/Plan Impression/Plan Impression/Plan: 51-year-old with restricted failure thought secondary to be a result of toxic ingestion Recommendations: Attempt to taper Ativan slowly. Continue fentanyl. Adjust antibiotics for sensitive staph. Temperature profile is improved continue present ventilator settings Code Status: Full Code
--- NOTE | 2017-01-05 11:43 | NUR ---
THE PT'S ATIVAN GTT WAS DECREASED TO 14MG/HR OR 140ML/HR AT 1100. SAS REMAINS A 3.
--- NOTE | 2017-01-05 18:41 | NUR ---
AT 1530 THE PT'S TEMP INCREASED TO 101.8 . COOL COMPRESS APPLIED TO PT'S FOREHEAD AND ACETAMINOPHEN 1000MG IV ADMINISTERED AT 1600. BY 1700 THE TEMP HAD ONLY DECREASED TO 101.7. ICE PACKS APPLIED TO JODIE AXILLA AND AT 1800 THE TEMP HAD DECREASED TO 100.3-DR CHANDLER AWARE. PER DR CHANDLER THE ATIVAN GTT WAS DECREASED TO 13MG/HR OR 130ML/HR. SAS REMAINS A 3.
--- NOTE | 2017-01-05 20:40 | NUR ---
PT ORALLY INTUBATED, SEDATED AT PRESENT. ATIVAN GTT AT 13MG/HR, PROPOFOL GTT AT 15MCG/KG/MIN. SAS 3 AT PRESENT-SEE FLOW SHEET FOR SAS SCORES. PUPILS SLUGGISH AT PRESENT. PT ORALLY INTUBATED AND VENTED AT PRESENT. BREATH SOUNDS CLEAR WITH DIMINISHED BREATH SOUNDS AT BASES BILATERALLY. SUCTIONING FOR LG AMT OF THICK, CREAMY LOUIS SECREATIONS. SPUTUM FOUL SMELLING. SOFT 4 POINT RESTRAINTS AND CHIOMA VEST ON. SEE FLOW SHEET FOR VS, 02 SATS, I/O'S. MONITOR SHOWS NSR, NO ECTOPY NOTED AT PRESENT. BP STABLE AT PRESENT. ABD SOFT, NONTENDER, NONDISTENDED, POSITIVE BOWEL SOUNDS. OGT IN PLACE-PLACEMENT CONFIRMED BY AIR-ON TUBE FEEDS-TOLERATING WELL AT PRESENT. PORTILLO IN PLACE-DRAINING ADEQUATE AMT OF CLEAR YELLOW URINE AT PRESENT. SKIN INTACT. TRACE GENERALIZED EDEMA NOTED
[2017-01-06 05:22] LABS: ABSOLUTE BASOPHIL COUNT 0 /CUMM (0.0-0.2); ABSOLUTE EOSINOPHIL COUNT 0.2 /CUMM (0.0-0.7); ABSOLUTE GRANULOCYTE CT 8.8 /CUMM (1.4-6.5); ABSOLUTE LYMPH COUNT 1.4 /CUMM (1.2-3.4); ABSOLUTE MONOCYTE COUNT 1.1 /CUMM (0.10-0.60); BASOPHIL % 0.3 % (0.0-2.0); EOSINOPHIL % 1.4 % (0-5); GRANULOCYTE % 76.7 % (42.2-75.2); HEMATOCRIT 37.3 % (42-52); MEAN CORPUSCULAR HGB 33.9 PG (27.0-31.0); MEAN CORPUSCULAR HGB CONC 33.9 G/DL (33.0-37.0); MEAN PLATELET VOLUME 8.9 FL (7.4-10.4); PLATELET COUNT 259 /CUMM (130-400); RBC DISTRIBUTION WIDTH 12.7 % (11.5-14.5); RED BLOOD CELL CT 3.73 /CUMM (4.70-6.10); WHITE BLOOD CELL COUNT 11.5 /CUMM (4.8-10.8)
--- NOTE | 2017-01-06 06:56 | PN- Resident CRCU ---
Subjective HPI/CRCU Issues: Mr Kinney was seen and examined this morning. He is resting comfortably in bed. He is unable to respond to any verbal commands. He appears very sedated. He is currently on a combination of propofol and Ativan. 24 Hour Events: No acute events reported. Objective Vital Signs & I&O Last 8 Hrs of Vitals and I&O: T: 99.7-101.8 HR: 80-103 ST/SR RR: 18-29 BP 106/57-170/84 UO: SI: 2105 SII: 1975 SIII: 1710 Intake & Output 01/06 1600 Intake Total 1826.9 Output Total 1999 Balance -173.1 Intake, IV 946.9 Intake, Oral 0 Intake, Tube 560 Feeding Intake, Tube 320 Irrigant Output, Urine 1999 Exam General Appearance: well developed/nourished, comfortable, intubated Respiratory: normal breath sounds Cardiovascular: regular rate/rhythm Gastrointestinal: normal bowel sounds, soft, non-tender Extremities: normal inspection Cranial Nerves: PERRL Skin: intact Skin Temp/Moisture Exam: Warm/Dry Weaning Schedule Start Time: 1135 Minute Volume: 10.1 Resp Rate: 20 Vt: 410 Heart Rate: 84 Current Medications: Current Medications Sig/Earline Start time Last Medication Dose Route Stop Time Status Admin Acetaminophen 1,000 MG Q6P PRN 12/30 0030 AC 01/06 IV 1634 Bisacodyl 10 MG ONCE ONE 01/06 1045 DC 01/06 CA 01/06 1046 1123 Bisacodyl 10 MG ONCE ONE 01/06 2000 DC 01/05 CA 01/05 Cefazolin Sodium 1,000 MG Q8H / 1200 AC 01/06 IV 1123 Chlorhexidine 15 ML TID 01/03 1600 AC 01/06 Gluconate PO 1634 Famotidine 20 MG BID 01/03 1152 AC 01/06 PO 0922 Fentanyl Citrate 12 MCG Q72H / 0930 AC 01/04 TOP 0821 Furosemide 20 MG ONCE ONE 01/06 1045 DC / IV 01/06 1046 1047 Heparin Sodium 5,000 UNIT Q8 / 0600 AC 01/06 (Porcine) SC 1509 Lorazepam 100 MG Q6H / 1200 AC 05/08 Dextrose/Water 1,000 ML IV 1739 Magnesium Hydroxide 30 ML DAILY PRN 01/01 0945 AC PO Methylene Blue 1 MG .[INTO OG TUBE] 01/02 1800 AC TOP-INJ Multivitamins 1 TAB DAILY 01/01 1319 AC 01/06 PO 0922 Olanzapine 5 MG Q6 01/01 1832 AC 01/06 PO 1738 Propofol 1,000 MG Q4H 01/03 1000 DC 01/06 N/A 100 ML IV 0922 Senna 187 MG AT BEDTIME PRN 01/05 0756 AC PO Thiamine HCl 50 MG DAILY 01/01 1319 AC 01/06 PO 0922 Impression/Plan Impression/Problem List Impression: Mr. Kinney is a 51 year old male with PMH depression, anxiety, schizophrenia and suicidal ideation previously admitted to [facility] in 2016 who was brought to the [place] ED via ambulance due to episode of unresponsiveness. The patient was noted to have called a friend before this episode of unresponsiveness and noted he "wanted to kill himself". Patient was found laying next to nips of liquor and an empty bottle of seroquel (he may have taken approximately 40 tabs of 100 mg seroquel each). In the ED: Patient was combative, yelling and had slurred speech. He was administered 3 doses naloxone and 10 mg olanzapine. Patient was intubated after episodes of apnea and unresponsiveness. Vital signs at this time included afebrile, HR 100-140, BP 108/80. Pertinent labs included CK 568, troponin negative, toxicology + for benzos/cannabis. Alcohol 215. Lactate 2.2. Head CT done was negative. CXR showed no acute abnormality. Patient is admitted to the ICU and the following is the management: Respiratory 1. Acute hypercapnic respiratory failure likely due to substance ingestion, including marijuana, seroquel and ETOH * Patient remains intubated with AC, TV 500, FiO2 30, PEEP 5, RR 18. * ABG 01/05/2017: 7.44/36/113/23 * Ultrasound lower extremity and bilateral upper extremity to rule out DVT in the setting of prolonged immobility, increasing oxygen requirements and generalized swelling of upper extremities. * Continue fentanyl patch Q78, will reduce patch to 12.0 mcg Q72H. * F/U daily CXR while patient intubated * Famotidine 20 mg BID while intubated * Aggressive bowel regimen, Senna and Dulcolax S . * Elevate head of bed/aspiration precuations * Continue aggressive oral Care. 2. Aspiration Pneumonia * Patient afebrile last temperature: 99.0 F. * Vancomycin 1250 mg was discontinued and patient started --> Cefazolin Sodium 1000 Q8. * LRC: S. Aureus. Sensitivities reported. Repeat Sputum Culture ordered this am. Infectious * Patient is febrile without leukocytosis close clinical monitoring for aspiration pneumonia * WBC 11.5 . Repeat CBC in AM * PICC placement in AM for residential antibiotic coverage. Cardiac * Monitor vital signs Q1H * No active cardiac issues at this present time * Lasix PO 20 mg. Heme 1. Macrocytosis * Patient noted to have MCV 100.5 * Likely 2/2 chronic alcohol use with vitamin deficiency * Supplement with thiamine PO, multivitamin PO (both via OGT) * Monitor CBC daily in critically ill patient Metabolic 1. Eleveated CPK on admission * CK 568 on admission, unsure how long patient unresponsive before prior to EMS arrival * Repeat CK: 01/07/2017 Alimentary 1. OGT with tube feeds * Continue Jevity 1.2 alexys with goal rate 70 cc/h * IV Fluids have been discontinued. Neuro 1. Significant psychiatric illness, including depression, anxiety and schizophrenia with suicidal ideation * Psych consult placed and appreciated, will follow up recommendations * Haldol discontinued, Continue Olanzapine 5mg Q6, we will hold for QTC > 475. If QTC is prolonged, psych may recommend Depakote or [place]. * Continue kimberly and soft restraints x 4 as patient is combative and pulling at lines * SW consult placed 2. Toxic metabolic encephalopathy * Urine toxicology did show evidence of: >80.0 Cannabis Screen, >800 Benzodiazepine * Continue intubation for now as patient remains encephalopathic and combative * Continue soft restraints x 4/kimberly as patient is aggressive and agitated * Discontinue propofol, * Continue ativan drip to keep adequate SAS 3, reduce drip by 1 mg every 12 hours. Current rate: 10 mg/hr, reduce to 9mg/hr at 1800 till am. Use Bolus PRN. * Follow QTC. Repeat EKG 01/07/2017. 3. Bacterial Conjunctivitis, #Resolved * Erythromycin, 1 edel x 4. Skin * Continue repositioning while patient intubated DVTP: Code: FULL Problem List: 1. Polysubstance overdose 2. Suicide attempt by drug ingestion 3. Suicide attempt 4. Depression Pain Ratin Tomorrow's Labs & Rationales: Icu Bundle CBC CK C-XRay Plan DVT/Prophylaxis: pharmacological, Heparin SC Code Status: Full Code
--- NOTE | 2017-01-06 07:44 | NUR ---
PT REMAINS SEDATED ON PROPOFOL GTT AT 15MCG/KG/MIN, AND ATIVAN GTT AT 12MG/HR, SAS SCORES 3-4 FOR SHIFT. SUCTIONING FOR MOD TO LG AMT OF CREAMY LOUIS SECREATIONS. NSR-ST, NO ECTOPY FOR SHIFT. BP STABLE FOR SHIFT. GOOD URINE OUTPUT FOR SHIFT. TOLERATING TUBE FEEDS WELL THOUGHOUT SHIFT. NO OTHER CHANGE IN PT ASSESSMENTS THOUGHOUT SHIFT
[2017-01-06 08:20] VITALS: BP 123/76
--- NOTE | 2017-01-06 09:45 | PN- Pulmonary ---
Subjective HPI/Critical Care Issues: Still intubated and deeply sedated on ativan and propofol Not responding to painful stimuli Good urine output Still febrile Thick secretions in the ett Objective Current Medications: Current Medications Sig/Earline Start time Last Medication Dose Route Stop Time Status Admin Acetaminophen 1,000 MG .STK-MED ONE 01/05 1555 DC IV 01/05 1556 Acetaminophen 1,000 MG .STK-MED ONE 01/05 1023 DC IV 01/05 1024 Acetaminophen 1,000 MG Q6P PRN 12/30 0030 AC 01/05 IV 1554 Alprazolam 0.5 MG ONCE ONE 01/05 1530 CAN PO 01/05 1531 Bisacodyl 10 MG ONCE ONE 01/06 2000 DC 01/05 AL 01/05 Cefazolin Sodium 1,000 MG Q8H 01/05 1200 AC 01/06 IV 0458 Chlorhexidine 15 ML TID 01/03 1600 AC 01/06 Gluconate PO 0922 Famotidine 20 MG BID 01/03 1152 AC 01/06 PO 0922 Fentanyl Citrate 12 MCG Q72H 01/04 0930 AC 01/04 TOP 0821 Heparin Sodium 5,000 UNIT Q8 12/30 0600 AC 01/06 (Porcine) SC 0611 Lorazepam 100 MG Q6H 01/03 1200 AC 01/06 Dextrose/Water 1,000 ML IV 0828 Magnesium Hydroxide 30 ML DAILY PRN 01/01 0945 AC PO Methylene Blue 1 MG .[INTO OG TUBE] 01/02 1800 AC TOP-INJ Multivitamins 1 TAB DAILY 01/01 1319 AC 01/06 PO 0922 Olanzapine 5 MG Q6 01/01 1832 AC 01/06 PO 0613 Propofol 1,000 MG Q4H 01/03 1000 AC 01/06 N/A 100 ML IV 0922 Senna 187 MG AT BEDTIME PRN 01/05 0756 AC PO Thiamine HCl 50 MG DAILY 01/01 1319 AC 01/06 PO 0922 Vancomycin HCl 1,250 MG Q12H 01/03 1300 DC 01/05 Sodium Chloride 250 ML IV 0115 Laboratory Tests 01/06 01/05 0425 1845 Blood Gas pH (7.35 - 7.45 PH) 7.44 pCO2 (35 - 45 TORR) 36 pO2 (80 - 100 TORR) 113 H HCO3 (21 - 28 MEQ/L) 23 ABG O2 Sat (Measured) (>96.0 %) 97.0 P-50 (Temp Corrected) Y Carboxyhemoglobin (1.5 - 5.0 %) 0.4 L O2 Concentration % 30% Temperature (97.0 - 100.0 FARH) 100.7 H Respiration Rate (BPM) 18 O2 Delivery Method ESPRIT Vent Mode AC Expiratory Pressure (CMH2O/P) 5 Tidal Volume (CC) 500 Chemistry Sodium (137 - 145 mmol/L) 139 Potassium (3.5 - 5.1 mmol/L) 4.1 Chloride (98 - 107 mmol/L) 104 Carbon Dioxide (22 - 30 mmol/L) 25 Anion Gap (5 - 16) 10 BUN (9 - 20 mg/dL) 9 Creatinine (0.7 - 1.2 mg/dL) 0.8 Estimated GFR (>60 ml/min) > 60 Glucose (65 - 99 mg/dL) 110 H Calcium (8.4 - 10.2 mg/dL) 8.2 L Phosphorus (2.5 - 4.5 mg/dL) 3.5 Magnesium (1.6 - 2.3 mg/dL) 2.2 Total Bilirubin (0.2 - 1.3 mg/dL) 0.4 AST (17 - 59 U/L) 18 ALT (21 - 72 U/L) 35 Albumin (3.5 - 5.0 g/dL) 2.9 L Hematology CBC w Diff NO MAN DIFF REQ WBC (4.8 - 10.8 /CUMM) 11.5 H RBC (4.70 - 6.10 /CUMM) 3.73 L Hgb (14.0 - 18.0 G/DL) 12.6 L Hct (42 - 52 %) 37.3 L MCV (80.0 - 94.0 FL) 100.0 H MCH (27.0 - 31.0 PG) 33.9 H RDW (11.5 - 14.5 %) 12.7 Plt Count (130 - 400 /CUMM) 259 MPV (7.4 - 10.4 FL) 8.9 Gran % (42.2 - 75.2 %) 76.7 H Lymphocytes % (20.5 - 51.1 %) 12.1 L Monocytes % (1.7 - 9.3 %) 9.5 H Eosinophils % (0 - 5 %) 1.4 Basophils % (0.0 - 2.0 %) 0.3 Absolute Granulocytes (1.4 - 6.5 /CUMM) 8.8 H Absolute Lymphocytes (1.2 - 3.4 /CUMM) 1.4 Absolute Monocytes (0.10 - 0.60 /CUMM) 1.1 H Absolute Eosinophils (0.0 - 0.7 /CUMM) 0.2 Absolute Basophils (0.0 - 0.2 /CUMM) 0 PUBS MCHC (33.0 - 37.0 G/DL) 33.9 Miscellaneous Phlebotomy Draw Site RIGHT RADIAL 01/05 01/04 0400 1138 Chemistry Sodium (137 - 145 mmol/L) 139 139 Potassium (3.5 - 5.1 mmol/L) 4.1 3.8 Chloride (98 - 107 mmol/L) 103 104 Carbon Dioxide (22 - 30 mmol/L) 25 24 Anion Gap (5 - 16) 12 11 BUN (9 - 20 mg/dL) 5 L 6 L Creatinine (0.7 - 1.2 mg/dL) 0.8 0.7 Estimated GFR (>60 ml/min) > 60 > 60 Glucose (65 - 99 mg/dL) 103 H 117 H Calcium (8.4 - 10.2 mg/dL) 8.2 L 7.9 L Phosphorus (2.5 - 4.5 mg/dL) 3.4 3.2 Magnesium (1.6 - 2.3 mg/dL) 2.0 2.0 Total Bilirubin (0.2 - 1.3 mg/dL) 0.3 0.4 AST (17 - 59 U/L) 16 L 15 L ALT (21 - 72 U/L) 36 40 Creatine Kinase (55 - 170 U/L) 133 Albumin (3.5 - 5.0 g/dL) 2.8 L 2.5 L Hematology CBC w Diff NO MAN DIFF REQ WBC (4.8 - 10.8 /CUMM) 9.9 RBC (4.70 - 6.10 /CUMM) 3.71 L Hgb (14.0 - 18.0 G/DL) 12.7 L Hct (42 - 52 %) 37.6 L MCV (80.0 - 94.0 FL) 101.2 H MCH (27.0 - 31.0 PG) 34.3 H RDW (11.5 - 14.5 %) 12.7 Plt Count (130 - 400 /CUMM) 238 MPV (7.4 - 10.4 FL) 8.7 Gran % (42.2 - 75.2 %) 73.9 Lymphocytes % (20.5 - 51.1 %) 13.4 L Monocytes % (1.7 - 9.3 %) 9.4 H Eosinophils % (0 - 5 %) 3.1 Basophils % (0.0 - 2.0 %) 0.2 Absolute Granulocytes (1.4 - 6.5 /CUMM) 7.3 H Absolute Lymphocytes (1.2 - 3.4 /CUMM) 1.3 Absolute Monocytes (0.10 - 0.60 /CUMM) 0.9 H Absolute Eosinophils (0.0 - 0.7 /CUMM) 0.3 Absolute Basophils (0.0 - 0.2 /CUMM) 0 PUBS MCHC (33.0 - 37.0 G/DL) 33.9 Microbiology Date/Time Procedure - Status Source Growth 01/03 1300 Urine Culture - COMP URINE ROUT Vital Signs & I&O Last 24 Hrs of Vitals and I&O: Vital Signs Date Time Temp Pulse Resp B/P B/P Pulse O2 O2 Flow FiO2 Mean Ox Delivery Rate 01/06 0908 30 /08 0820 98.8 83 17 123/76 97 Ventilator 30% 01/06 0800 97 Ventilator 30% 01/06 0600 97 Ventilator 30% 01/06 0518 30 / 0242 30 / 0056 30 05/08 0000 97 Ventilator 30% 01/05 2300 99.7 96 18 142/78 97 Ventilator 30% 05/07 2235 30 / 2000 95 Ventilator 30% 05/07 1915 30 05/07 1819 100.3 05/07 1610 30 05/07 1600 101.8 101 20 131/65 05/07 1600 96 Ventilator 30% 05/07 1600 101.8 101 20 131/65 96 Ventilator 30% 05/07 1554 101.8 05/07 1436 30 05/07 1400 101.1 90 18 114/61 05/07 1200 101.1 05/07 1200 30 05/07 1200 101.1 96 18 112/64 05/07 1200 96 Ventilator 30% 05/07 1022 101.5 05/07 1000 101.5 98 18 135/72 Intake & Output 01/06 1600 01/06 0800 05 0000 Intake Total 1730 1835 Output Total 1710 1974 Balance 20 -140 Intake, IV 1040 1150 Intake, Tube 470 550 Feeding Intake, Tube 220 135 Irrigant Number 0 1 Bowel Movements Output, Urine 1710 1974 Impression/Plan Impression/Plan Impression/Plan: General Appearance: well developed/nourished, intubated Head: atraumatic Neck: normal inspection Respiratory: normal breath sounds Cardiovascular: regular rate/rhythm Gastrointestinal: normal bowel sounds, soft, non-tender Extremities: normal inspection, normal capillary refill, no edema Cranial Nerves: PERRL Skin: intact, normal color Skin Temp/Moisture Exam: Warm/Dry IMP REsp failure due to prob intentional od with multiple substances including etoh and marijuana and othe meds including seroquel possibly * sig dts on sig sedation * Sig Psych illness with recent PSychiatric admission with sig psycosis * TOxic metabolic encephalopathy * Suicidal ideation * Mildly elevated cpk upon admision * No sig qtc prolongation or arrthymia or active infection or met acidosis so far * Fever and infiltrate with staph in the sputum consistant with tracheobronchitis REC Keep intubated and sedated today With ativan. cont olanzapine and follow cpk and qtc and mag dily RPt sputum culture Add triglycerides and amylase lipase to this ams lab DC propofol and use only as needed for a short period REduce ativan drip to 10 mg and do not increase the dose anymore today if able. Can use boluses of ativan if needed. REduce ativan to 9 mg this pm. Cont tube feeding Lasix one dose 20mg Aggresive bowel regimen, supp Change to h2 cordelia for pud prophy Eye care Mouth care and increase periodex mouth washes to q 8 hrs COnt cefazolin Ultrasound of all four ext to rule out dvt Picc line today if possible cont heparin sub cut WIll follow Update family if available today asjosé miguel Prog guarded
--- NOTE | 2017-01-06 11:28 | PN- Psychiatry ---
Assessment/Plan Impression: Identifying Info: 51-year-old AA male brought in by ambulance to [facility] emergency department on [facility] on 12/29/16 status post disclosing to a friend that he was going to kill himself. He was intially unresponsive at home then became combative. Empty liquor and pill bottles were found around him in field. He was subsequently admitted to CCU with suspected Seroquel overdose. SUBJECTIVE (The patient remains sedated) Brief ROS Gait: NA Sleep: NA Appetite: NA OBJECTIVE Mental Status Exam Presentation/Appearance: Lying in hospital bed, sedated with vent and ET tube in place. 4 point soft wrist restraints and posy vest in place. Orientation: NANDO Sensorium: Sedated Eye contact: None Affect: Flat Mood: NANDO, per staff report aggitated Depression: NANDO Anxiety: NANDO Thought Content: - Per reports SI - NANDO Thought Process: Poverty of content at present Associations: NANDO Speech:None Judgment: Impaired Insight: Impaired Cognition: Memory: NANDO Attention/Concentration: NANDO Fund of Knowledge: NANDO Abstractions:NANDO MMSE: NANDO Per nuring report the pts propofol was dc the AM. He had aggiattion this weekend that required 4 point locking restraints. Ativan drip currently 12mg/ hr. ASSESSMENT 51-year-old -[place]aced[place] male with a h/o schizoaffective d/o and PSA presents status post reported suicide attempt. He has been combative and at present is intubated and sedated in the ICU. Whenever awoken patient attempts to assault staff. He would benefit from continued antipsychotic and mood stabilizing medication. At present he is likley experiencing delirium due to substances and substance withdrawl as well as a mood episode. Differential diagnosis Delirium due to multiple eitiologies Schizoaffective d/o Alcohol use d/o, moderate Cannabis use d/o, moderate Suggestion: 1. Please continue Zyprexa and continue to monitor QTc. 2. Patient is on PEC. Pt may not leave AMA. Plan for inpatient psychiatric admission pending medical clearance. 3. Please continue to reduce ativan by 20% daily. At present his Ativan drip is at 12mg/hr, it would be prudent to continue reducing the dose by 3mg every day to prevent rebound confusion and agitation ina a goal of weaning pt to 9/mg/hr tomorrow. 4. Pt will require sitter as sedation is decreased. Thank you for including psychiatry in this case, we will continue to follow. Subjective Subjective: as above Objective Last 24 Hrs of Vital Signs/I&O Current Medications Sig/Earline Start time Last Medication Dose Route Stop Time Status Admin Acetaminophen 1,000 MG .STK-MED ONE 01/05 1555 DC IV 01/05 1556 Acetaminophen 1,000 MG Q6P PRN 12/30 0030 AC 01/05 IV 1554 Alprazolam 0.5 MG ONCE ONE 01/05 1530 CAN PO 01/05 1531 Bisacodyl 10 MG ONCE ONE 01/06 1045 DC 01/06 MN 01/06 1046 1123 Bisacodyl 10 MG ONCE ONE 01/06 2000 DC 01/05 MN 01/05 Cefazolin Sodium 1,000 MG Q8H 01/05 1200 AC 01/06 IV 1123 Chlorhexidine 15 ML TID 01/03 1600 AC 01/06 Gluconate PO 0922 Famotidine 20 MG BID 01/03 1152 AC 01/06 PO 0922 Fentanyl Citrate 12 MCG Q72H 01/04 0930 AC 01/04 TOP 0821 Furosemide 20 MG ONCE ONE 01/06 1045 DC 01/06 IV 01/06 1046 1047 Heparin Sodium 5,000 UNIT Q8 12/30 0600 AC 01/06 (Porcine) SC 0611 Lorazepam 100 MG Q6H 01/03 1200 AC 01/06 Dextrose/Water 1,000 ML IV 0828 Magnesium Hydroxide 30 ML DAILY PRN 01/01 0945 AC PO Methylene Blue 1 MG .[INTO OG TUBE] 01/02 1800 AC TOP-INJ Multivitamins 1 TAB DAILY 01/01 1319 AC 01/06 PO 0922 Olanzapine 5 MG Q6 01/01 1832 AC 01/06 PO 1123 Propofol 1,000 MG Q4H 01/03 1000 DC 01/06 N/A 100 ML IV 0922 Senna 187 MG AT BEDTIME PRN 01/05 0756 AC PO Thiamine HCl 50 MG DAILY 01/01 1319 AC 01/06 PO 0922 Laboratory Tests 01/06/17 0425: Anion Gap 10, Estimated GFR > 60, Glucose 110 H, Calcium 8.2 L, Phosphorus 3.5 , Magnesium 2.2, Total Bilirubin 0.4, AST 18, ALT 35, Albumin 2.9 L, Triglycerides 112, Cholesterol 114, LDL Cholesterol, Calc 56 L, HDL Cholesterol 36 L, Cholesterol/HDL Ratio 3, Amylase 61, Lipase 23, CBC w Diff NO MAN DIFF REQ, RBC 3.73 L, MCV 100.0 H, MCH 33.9 H, RDW 12.7, MPV 8.9, Gran % 76.7 H, Lymphocytes % 12.1 L, Monocytes % 9.5 H, Eosinophils % 1.4, Basophils % 0.3, Absolute Granulocytes 8.8 H, Absolute Lymphocytes 1.4, Absolute Monocytes 1.1 H, Absolute Eosinophils 0.2, Absolute Basophils 0, PUBS MCHC 33.9 01/05/17 1845: pH 7.44, pCO2 36, pO2 113 H, HCO3 23, ABG O2 Sat (Measured) 97.0, P-50 (Temp Corrected) Y, Carboxyhemoglobin 0.4 L, O2 Concentration % 30%, Temperature 100.7 H, Respiration Rate 18, O2 Delivery Method ESPRIT, Vent Mode AC, Expiratory Pressure 5, Tidal Volume 500, Phlebotomy Draw Site RIGHT RADIAL 01/05/17 0400: Anion Gap 12, Estimated GFR > 60, Glucose 103 H, Calcium 8.2 L, Phosphorus 3.4 , Magnesium 2.0, Total Bilirubin 0.3, AST 16 L, ALT 36, Creatine Kinase 133, Albumin 2.8 L, CBC w Diff NO MAN DIFF REQ, RBC 3.71 L, MCV 101.2 H, MCH 34.3 H, RDW 12.7, MPV 8.7, Gran % 73.9, Lymphocytes % 13.4 L, Monocytes % 9.4 H, Eosinophils % 3.1, Basophils % 0.2, Absolute Granulocytes 7.3 H, Absolute Lymphocytes 1.3, Absolute Monocytes 0.9 H, Absolute Eosinophils 0.3, Absolute Basophils 0, PUBS MCHC 33.9 01/04/17 1138: Anion Gap 11, Estimated GFR > 60, Glucose 117 H, Calcium 7.9 L, Phosphorus 3.2 , Magnesium 2.0, Total Bilirubin 0.4, AST 15 L, ALT 40, Albumin 2.5 L 01/04/17 0420: Anion Gap 13, Estimated GFR > 60, Glucose 335 H, Calcium 7.3 L, Phosphorus 3.1 , Magnesium 1.9, Total Bilirubin 0.4, AST 17, ALT 38, Creatine Kinase 189 H, Albumin 2.5 L, CBC w Diff NO MAN DIFF REQ, RBC 3.74 L, MCV 101.3 H, MCH 34.5 H, RDW 12.7, MPV 8.7, Gran % 69.3, Lymphocytes % 18.6 L, Monocytes % 9.8 H, Eosinophils % 2.1, Basophils % 0.2, Absolute Granulocytes 6.3, Absolute Lymphocytes 1.7, Absolute Monocytes 0.9 H, Absolute Eosinophils 0.2, Absolute Basophils 0, PUBS MCHC 34.1 Microbiology 01/06 1022 LOWER RESP: Respiratory Culture - RES 01/06 1022 LOWER RESP: Gram Stain - RES 01/03 1300 URINE ROUT: Urine Culture - COMP Vital Signs Date Time Temp Pulse Resp B/P B/P Pulse O2 O2 Flow FiO2 Mean Ox Delivery Rate 01/06 0908 30 01/06 0820 98.8 83 17 123/76 97 Ventilator 30% 01/06 0800 97 Ventilator 30% 01/06 0600 97 Ventilator 30% 01/06 0518 30 / 0242 30 / 0056 30 05/08 0000 97 Ventilator 30% 05/07 2300 99.7 96 18 142/78 97 Ventilator 30% 05/07 2235 30 05/07 2000 95 Ventilator 30% 05/07 1915 30 05/07 1819 100.3 05/07 1610 30 05/07 1600 101.8 101 20 131/65 05/07 1600 96 Ventilator 30% 05/07 1600 101.8 101 20 131/65 96 Ventilator 30% 05/07 1554 101.8 05/07 1436 30 05/07 1400 101.1 90 18 114/61 05/07 1200 101.1 05/07 1200 30 05/07 1200 101.1 96 18 112/64 05/07 1200 96 Ventilator 30% Intake & Output 01/06 1600 05/08 0800 05/08 0000 Intake Total 1730 1835 Output Total 1710 1974 Balance 20 -140 Intake, IV 1040 1150 Intake, Tube 470 550 Feeding Intake, Tube 220 135 Irrigant Number 0 1 Bowel Movements Output, Urine 1709 1974
--- NOTE | 2017-01-06 11:43 | RADIOLOGY REPORT ---
EXAMINATION: XR PORTABLE CHEST CLINICAL INFORMATION: Intubated. Please confirm ET tube placement. COMPARISON: X-ray portable chest dated 01/03/2017 and 01/02/2017. FINDINGS: The lungs are well expanded. The endotracheal tube is in good position with the tip approximately 4 cm above the kaleb. There is a nasogastric tube with the tip coiled in the left upper quadrant. There is no focal infiltrate, effusion, edema, or pneumothorax. The cardiac and mediastinal silhouettes are within normal limits for technique. No acute bony abnormality is seen. IMPRESSION: Endotracheal tube in good position with the tip approximately 4 cm above the kaleb. Nasogastric tube with the tip coiled in the left upper quadrant. No pneumothorax or pleural effusion.
[2017-01-06 16:35] VITALS: BP 138/65
--- NOTE | 2017-01-06 17:03 | ULTRASOUND REPORT ---
EXAMINATION: US TRIPLEX OF LOWER EXTREMITIES, BILATERAL CLINICAL INFORMATION: Diminished mobility; question deep venous thrombosis. COMPARISON: None. TECHNIQUE: Color-flow triplex imaging with spectral analysis and compression Doppler were performed on the lower extremities. FINDINGS: Respiratory variation, normal compression and augmented flow are noted throughout the lower extremities. The visualized common femoral vein, proximal greater saphenous vein, femoral vein, profunda femoral vein, popliteal vein and visualized mid calf venous segments show no evidence of deep venous thrombosis. There is no Lakhani's cyst. IMPRESSION: Normal triplex scan without evidence of deep venous thrombosis involving the bilateral lower extremities.
--- NOTE | 2017-01-06 17:09 | ULTRASOUND REPORT ---
EXAMINATION: US TRIPLEX UPPER EXTREMITY, BILATERAL CLINICAL INFORMATION: Intubated patient. Decreased mobility. Evaluate for deep venous thrombosis in the upper extremities. COMPARISON: None TECHNIQUE: Color-flow triplex imaging with spectral analysis and compression Doppler were performed on the upper extremities. FINDINGS: The study was performed by the bedside on a intubated restrained unconscious patient. Best possible images are obtained. Bilateral internal jugular veins and subclavian veins demonstrate normal color flow. Bilateral axillary veins demonstrate normal color flow. Bilateral paired brachial veins are patent and compressible. The basically gland demonstrate normal color flow bilaterally. Bilateral cephalic veins could not be identified. IMPRESSION: No evidence of deep venous thrombosis in the bilateral upper extremities.
[2017-01-07] VITALS: BP 130/74
--- NOTE | 2017-01-07 | NUR ---
PT REQUIRES BOLUS OF ATIVAN AND SECURITY STAFF TO ASSIST WITH TURN AND REPOSITIONING. PT COOPERATIVE WITH CARE BUT COUGHS AND BECOMES AGITATED. PT SUCTIONED FOR THICK LOUIS SPUTUM. SKIN GROSSLY INTACT. PT REMAINS INTUBATED, MOUTH CARE GIVEN.
[2017-01-07 04:41] LABS: ABSOLUTE BASOPHIL COUNT 0 /CUMM (0.0-0.2); ABSOLUTE EOSINOPHIL COUNT 0.3 /CUMM (0.0-0.7); ABSOLUTE GRANULOCYTE CT 8.9 /CUMM (1.4-6.5); ABSOLUTE LYMPH COUNT 1.2 /CUMM (1.2-3.4); BASOPHIL % 0.3 % (0.0-2.0); GRANULOCYTE % 77.6 % (42.2-75.2); HEMATOCRIT 37.4 % (42-52); MEAN CORPUSCULAR HGB 34.3 PG (27.0-31.0); MEAN CORPUSCULAR VOLUME 100.8 FL (80.0-94.0); MEAN PLATELET VOLUME 8.1 FL (7.4-10.4); PLATELET COUNT 285 /CUMM (130-400); RBC DISTRIBUTION WIDTH 12.5 % (11.5-14.5); RED BLOOD CELL CT 3.71 /CUMM (4.70-6.10); WHITE BLOOD CELL COUNT 11.5 /CUMM (4.8-10.8)
--- NOTE | 2017-01-07 05:45 | PN- Resident CRCU ---
Subjective HPI/CRCU Issues: Patient was seen and examined this morning, he is sleeping, intubated, opened his eyes upon examination. No overnight events reported by the nurse. 24 Hour Events: Temperature 99.4, MAXIMUM TEMPERATURE 99.9 Heart rate 74, highest 103 sinus rhythm Blood pressure 82/46, highest 161/77 Mechanical vent, AC mode, rate 18, tidal volume 500, PEEP 5, peak flow 60, FiO2 30% IV fluid Ativan at 90 mL/h, discontinued propofol Intake 5393, output 4630 Objective Vital Signs & I&O Last 8 Hrs of Vitals and I&O: Intake & Output 01/07 1600 Intake Total Output Total Balance Patient 78.075 kg Weight Weight Bed scale Measurement Method Exam General Appearance: intubated Head: atraumatic, normal appearance Neck: normal inspection Respiratory: normal breath sounds, chest non-tender Cardiovascular: regular rate/rhythm Gastrointestinal: normal bowel sounds, soft, non-tender Extremities: normal inspection, normal capillary refill, no edema Cranial Nerves: PERRL Skin: intact, normal color, warm/dry Weaning Schedule Start Time: 1135 Minute Volume: 10.1 Resp Rate: 20 Vt: 410 Heart Rate: 84 Current Medications: Current Medications Sig/Earline Start time Last Medication Dose Route Stop Time Status Admin Acetaminophen 1,000 MG .STK-MED ONE 01/06 1632 DC IV 01/06 1633 Acetaminophen 1,000 MG Q6P PRN 12/30 0030 01/06 IV 1634 Bisacodyl 10 MG ONCE ONE 01/06 1045 DC 01/06 FL 01/06 1046 1123 Cefazolin Sodium 1,000 MG Q8H 01/05 1200 AC 01/07 IV 0423 Chlorhexidine 15 ML TID 01/03 1600 AC 01/07 Gluconate PO 0953 Famotidine 20 MG BID 01/03 1152 AC 01/07 PO 0952 Fentanyl Citrate 25 MCG Q72H 01/10 0930 01/07 TOP 1024 Fentanyl Citrate 12 MCG Q72H 01/04 0930 VA 01/04 TOP 0821 Furosemide 20 MG ONCE ONE 01/06 1045 DC 01/06 IV 01/06 1046 1047 Heparin Sodium 5,000 UNIT Q8 12/30 0600 AC 01/07 (Porcine) SC 0646 Lorazepam 2 MG ONCE ONE 01/07 2345 AC 01/06 IV 01/07 2346 2345 Lorazepam 100 MG Q11H 01/07 1500 AC Dextrose/Water 1,000 ML IV Lorazepam 2 MG Q1P PRN 01/07 1030 AC IV Lorazepam 2 MG ONCE ONE 01/07 2000 DC 01/06 IV 01/06 Lorazepam 2 MG ONCE ONE 01/06 193 DC 01/06 IV 01/06 193 193 Lorazepam 100 MG Q6H 01/03 1200 AC 01/07 Dextrose/Water 1,000 ML IV 01/07 1459 0422 Magnesium Hydroxide 30 ML DAILY PRN 01/01 0945 AC PO Methylene Blue 1 MG .[INTO OG TUBE] 01/02 1800 AC TOP-INJ Multivitamins 1 TAB DAILY 01/01 1319 AC 01/07 PO 0952 Olanzapine 5 MG Q6 01/01 1832 AC 01/07 PO 0646 Phosphate 250 MG ONCE ONE 01/07 0930 DC 01/07 PO 01/07 0931 1023 Potassium Chloride 40 MEQ ONCE ONE 01/07 0845 DC 01/07 PO 01/07 0846 0952 Potassium Phosphate 15 mMol ONE ONE 01/07 0900 CAN Sodium Chloride 250 ML IV 01/07 1303 Senna 187 MG AT BEDTIME PRN 01/05 0756 AC PO Sodium Phosphate 15 mMol ONE ONE 01/07 0915 CAN Sodium Chloride 250 ML IV 01/07 1318 Thiamine HCl 50 MG DAILY 01/01 1319 AC 01/07 PO 0952 Impression/Plan Impression/Problem List Impression: Mr. Kinney is a 51 year old male with PMH depression, anxiety, schizophrenia and suicidal ideation previously admitted to [facility] in 2015 who was brought to the [place] ED via ambulance due to episode of unresponsiveness. The patient was noted to have called a friend before this episode of unresponsiveness and noted he "wanted to kill himself". Patient was found laying next to nips of liquor and an empty bottle of seroquel (he may have taken approximately 40 tabs of 100 mg seroquel each). In the ED: Patient was combative, yelling and had slurred speech. He was administered 3 doses naloxone and 10 mg olanzapine. Patient was intubated after episodes of apnea and unresponsiveness. Vital signs at this time included afebrile, HR 100-140, BP 108/80. Pertinent labs included CK 568, troponin negative, toxicology + for benzos/cannabis. Alcohol 215. Lactate 2.2. Head CT done was negative. CXR showed no acute abnormality. Patient is admitted to the ICU and the following is the management: Respiratory 1. Acute hypercapnic respiratory failure likely due to substance ingestion, including marijuana, seroquel and ETOH * Patient remains intubated with AC, TV 500, FiO2 30, PEEP 5, RR 18. * ABG 01/05/2017: 7.44/36/113/23 * Ultrasound lower extremity and bilateral upper extremity to rule out DVT in the setting of prolonged immobility, increasing oxygen requirements and generalized swelling of upper extremities. * Continue fentanyl patch Q78, will reduce patch to 12.0 mcg Q72H. * F/U daily CXR while patient intubated * Famotidine 20 mg BID while intubated * Aggressive bowel regimen, Senna and Dulcolax S . * Elevate head of bed/aspiration precuations * Continue aggressive oral Care. 2. Aspiration Pneumonia * Vancomycin 1250 mg was discontinued and patient started --> Cefazolin Sodium 1000 Q8. * LRC: S. Aureus. Sensitivities reported. Repeat Sputum Culture pending Infectious * Patient is febrile without leukocytosis close clinical monitoring for aspiration pneumonia * PICC for long term antibiotic coverage. Cardiac * Monitor vital signs Q1H * No active cardiac issues at this present time * Lasix PO 20 mg. Heme 1. Macrocytosis * Patient noted to have MCV 100.5 * Likely 2/2 chronic alcohol use with vitamin deficiency * Supplement with thiamine PO, multivitamin PO (both via OGT) * Monitor CBC daily in critically ill patient Metabolic 1. Eleveated CPK on admission * CK 568 on admission, unsure how long patient unresponsive before prior to EMS arrival Alimentary 1. OGT with tube feeds * Continue Jevity 1.2 alexys with goal rate 70 cc/h * IV Fluids have been discontinued. Neuro 1. Significant psychiatric illness, including depression, anxiety and schizophrenia with suicidal ideation * Psych consult placed and appreciated, will follow up recommendations * Haldol discontinued, Continue Olanzapine 5mg Q6, we will hold for QTC > 475. If QTC is prolonged, psych may recommend Depakote or [place]. * Continue kimberly and soft restraints x 4 as patient is combative and pulling at lines * SW consult placed 2. Toxic metabolic encephalopathy * Urine toxicology did show evidence of: >80.0 Cannabis Screen, >800 Benzodiazepine * Continue intubation for now as patient remains encephalopathic and combative * Continue soft restraints x 4/kimberly as patient is aggressive and agitated * Off propofol * Continue ativan drip to keep adequate SAS 3, reduce drip by 1 mg every 12 hours. Current rate: 10 mg/hr, reduce to 9mg/hr at 1800 till am. Use Bolus PRN. * Follow QTC. Repeat EKG 01/07/2017. 3. Bacterial Conjunctivitis, #Resolved * Erythromycin, 1 edel x 4. Skin * Continue repositioning while patient intubated DVTP: Code: FULL Problem List: 1. Depression 2. Suicide attempt 3. Respiratory acidosis Pain Ratin Tomorrow's Labs & Rationales: CBC ICU bundle Plan DVT/Prophylaxis: pharmacological, Heparin SC Code Status: Full Code
[2017-01-07 08:00] VITALS: BP 104/72
--- NOTE | 2017-01-07 08:55 | PN- Psychiatry ---
Assessment/Plan Impression: Identifying Info: 51-year-old AA male brought in by ambulance to [facility] emergency department on [facility] on 12/29/16 status post disclosing to a friend that he was going to kill himself. He was intially unresponsive at home then became combative. Empty liquor and pill bottles were found around him in field. He was subsequently admitted to CCU. SUBJECTIVE (The patient remains sedated) Brief ROS Gait: NA Sleep: NA Appetite: NA OBJECTIVE Mental Status Exam Presentation/Appearance: Lying in hospital bed, sedated with vent and ET tube in place. 4 point soft wrist restraints and posy vest in place. Orientation: NANDO Sensorium: Sedated Eye contact: None Affect: Flat Mood: NANDO, Depression: NANDO Anxiety: NANDO Thought Content: - Per reports SI - NANDO Thought Process: Poverty of content at present Associations: NANDO Speech:None Judgment: Impaired Insight: Impaired Cognition: Memory: NANDO Attention/Concentration: NANDO Fund of Knowledge: NANDO Abstractions:NANDO MMSE: NADNO Ativan drip currently 9mg/hr. ASSESSMENT 51-year-old -[place] male with a h/o schizoaffective d/o and PSA presents status post reported suicide attempt. He has been combative and at present is intubated and sedated in the ICU. Whenever awoken patient attempts to assault staff. He would benefit from continued antipsychotic and mood stabilizing medication. At present he is likley experiencing delirium due to substances and substance withdrawl as well as a mood episode. Differential diagnosis Delirium due to multiple eitiologies Schizoaffective d/o Alcohol use d/o, moderate Cannabis use d/o, moderate Suggestion: 1. Please continue Zyprexa and continue to monitor QTc. 2. Patient is on PEC. Pt may not leave AMA. Plan for inpatient psychiatric admission pending medical clearance. 3. Please continue to reduce ativan by 20% daily. At present his Ativan drip is at 9mg/hr, it would be prudent to continue reducing the dose as previously 3mg/ hr daily to prevent rebound confusion and agitation ina a goal of weaning pt to 6/mg/hr tomorrow. 4. Pt will require sitter as sedation is decreased. Thank you for including psychiatry in this case, we will continue to follow. Subjective Subjective: as above Objective Last 24 Hrs of Vital Signs/I&O Current Medications Sig/Earline Start time Last Medication Dose Route Stop Time Status Admin Acetaminophen 1,000 MG .STK-MED ONE 01/06 1632 DC IV 01/06 1633 Acetaminophen 1,000 MG Q6P PRN 12/30 0030 AC 01/06 IV 1634 Bisacodyl 10 MG ONCE ONE 01/06 1045 DC 01/06 VT 01/06 1046 1123 Cefazolin Sodium 1,000 MG Q8H 01/05 1200 AC 01/07 IV 0423 Chlorhexidine 15 ML TID 01/03 1600 AC 01/06 Gluconate PO 211 Famotidine 20 MG BID 01/03 1152 AC 01/06 PO 2111 Fentanyl Citrate 12 MCG Q72H 01/04 0930 AC 01/04 TOP 0821 Furosemide 20 MG ONCE ONE 01/06 1045 DC 01/06 IV 01/06 1046 1047 Heparin Sodium 5,000 UNIT Q8 12/30 0600 AC 01/07 (Porcine) SC 0646 Lorazepam 2 MG ONCE ONE 01/07 2345 AC 01/06 IV 01/07 2346 2345 Lorazepam 2 MG ONCE ONE 01/07 2000 DC 01/06 IV 01/06 Lorazepam 2 MG ONCE ONE 01/06 1930 DC 01/06 IV 01/06 1931 1930 Lorazepam 100 MG Q6H 01/03 1200 AC 01/07 Dextrose/Water 1,000 ML IV 0422 Magnesium Hydroxide 30 ML DAILY PRN 01/01 0945 AC PO Methylene Blue 1 MG .[INTO OG TUBE] 01/02 1800 AC TOP-INJ Multivitamins 1 TAB DAILY 01/01 1319 AC 01/06 PO 0922 Olanzapine 5 MG Q6 01/01 1832 AC 01/07 PO 0646 Potassium Chloride 40 MEQ ONCE ONE 01/07 0845 DC PO 01/07 0846 Propofol 1,000 MG Q4H 01/03 1000 DC 01/06 N/A 100 ML IV 0922 Senna 187 MG AT BEDTIME PRN 01/05 0756 AC PO Thiamine HCl 50 MG DAILY 01/01 1319 AC 01/06 PO 0922 Laboratory Tests 01/07/17 0425: Anion Gap 10, Estimated GFR > 60, Glucose 132 H, Calcium 8.6, Phosphorus 2.7, Magnesium 2.1, Total Bilirubin 0.4, AST 23, ALT 31, Creatine Kinase 177 H, Albumin 2.9 L, CBC w Diff NO MAN DIFF REQ, RBC 3.71 L, MCV 100.8 H, MCH 34.3 H, RDW 12.5, MPV 8.1, Gran % 77.6 H, Lymphocytes % 10.3 L, Monocytes % 8.8, Eosinophils % 3.0, Basophils % 0.3, Absolute Granulocytes 8.9 H, Absolute Lymphocytes 1.2, Absolute Monocytes 1.0 H, Absolute Eosinophils 0.3, Absolute Basophils 0, PUBS MCHC 34.0 Vital Signs Date Time Temp Pulse Resp B/P B/P Pulse O2 O2 Flow FiO2 Mean Ox Delivery Rate 01/07 829 30 01/07 0602 30 01/07 0400 97 Ventilator 30% 01/07 0352 30 01/07 0134 30 01/07 0000 97 Ventilator 30% 01/07 0000 98.9 92 21 130/74 97 Ventilator 30% 01/06 2229 30 01/06 2000 100 Ventilator 30% 01/06 1925 30 01/06 1717 99.0 01/06 1640 30 01/06 1635 99.9 97 27 138/65 96 Ventilator 30% 01/06 1634 99.9 01/06 1600 96 Ventilator 30% 01/06 1347 30 01/06 1200 97 Ventilator 30% 01/06 1141 30 01/06 0908 30 Intake & Output 01/07 1600 01/07 0800 01/07 0000 Intake Total 1586 1900 Output Total 1300 1330 Balance 286 570 Intake, IV 809 1060 Intake, Oral 0 Intake, Tube 557 560 Feeding Intake, Tube 220 280 Irrigant Number 1 Bowel Movements Output, Urine 1300 1330
--- NOTE | 2017-01-07 09:26 | RADIOLOGY REPORT ---
EXAMINATION: XR PORTABLE CHEST CLINICAL INFORMATION: ET tube placement. COMPARISON: None TECHNIQUE: Portable AP view of the chest was obtained. FINDINGS: Endotracheal tube terminates 3.8 cm above kaleb. The lung volumes are decreased with bibasilar patchy opacities, left greater than right. No significant pleural effusion or pneumothorax. Enteric tube terminates in the fundus of the stomach. IMPRESSION: Endotracheal tube terminates 3.8 cm above kaleb.
--- NOTE | 2017-01-07 10:51 | PN- Pulmonary ---
See Addendum Subjective HPI/Critical Care Issues: Still intubated and deeply sedated on ativan and propofol Not responding to painful stimuli Good urine output Still febrile Thick secretions in the ett Objective Current Medications: Current Medications Sig/Earline Start time Last Medication Dose Route Stop Time Status Admin Acetaminophen 1,000 MG .STK-MED ONE 01/06 1632 DC IV 01/06 1633 Acetaminophen 1,000 MG Q6P PRN 12/30 0030 AC 01/06 IV 1634 Cefazolin Sodium 1,000 MG Q8H 01/05 1200 AC 01/07 IV 0423 Chlorhexidine 15 ML TID 01/03 1600 AC 01/07 Gluconate PO 0953 Famotidine 20 MG BID 01/03 1152 AC 01/07 PO 0952 Fentanyl Citrate 25 MCG Q72H 01/10 0930 AC 01/07 TOP 1024 Fentanyl Citrate 12 MCG Q72H 01/04 0930 DC 01/04 TOP 0821 Heparin Sodium 5,000 UNIT Q8 12/30 0600 AC 01/07 (Porcine) SC 0646 Lorazepam 2 MG ONCE ONE 01/07 2345 AC 01/06 IV 01/07 2346 2345 Lorazepam 100 MG Q11H 01/07 1500 AC Dextrose/Water 1,000 ML IV Lorazepam 2 MG Q1P PRN 01/07 1030 AC IV Lorazepam 2 MG ONCE ONE 01/07 2000 DC 08 IV 01/06 Lorazepam 2 MG ONCE ONE 01/06 1930 DC 01/06 IV 01/06 1931 1930 Lorazepam 100 MG Q6H / 1200 AC 01/07 Dextrose/Water 1,000 ML IV 01/07 1459 0422 Magnesium Hydroxide 30 ML DAILY PRN 01/01 0945 AC PO Methylene Blue 1 MG .[INTO OG TUBE] 01/02 1800 AC TOP-INJ Multivitamins 1 TAB DAILY 01/01 1319 AC 01/07 PO 0952 Olanzapine 5 MG Q6 01/01 1832 AC 01/07 PO 0646 Phosphate 250 MG ONCE ONE 01/07 0930 DC 01/07 PO 01/07 0931 1023 Potassium Chloride 40 MEQ ONCE ONE 01/07 0845 DC 01/07 PO 01/07 0846 0952 Potassium Phosphate 15 mMol ONE ONE 01/07 0900 CAN Sodium Chloride 250 ML IV 01/07 1303 Senna 187 MG AT BEDTIME PRN 01/05 0756 AC PO Sodium Phosphate 15 mMol ONE ONE 01/07 915 CAN Sodium Chloride 250 ML IV 01/07 1318 Thiamine HCl 50 MG DAILY 01/01 1319 AC 01/07 PO 0952 Vital Signs & I&O Last 24 Hrs of Vitals and I&O: Vital Signs Date Time Temp Pulse Resp B/P B/P Pulse O2 O2 Flow FiO2 Mean Ox Delivery Rate 01/08 0829 30 01/07 08 98.4 81 18 104/72 100 Ventilator 30% 01/07 0800 100 Ventilator 30% 01/07 0602 30 01/07 0400 97 Ventilator 30% 01/07 0352 30 01/07 0134 30 01/07 0000 97 Ventilator 30% 01/07 0000 98.9 92 21 130/74 97 Ventilator 30% 01/06 2229 30 01/06 2000 100 Ventilator 30% 01/06 1925 30 01/06 1717 99.0 01/06 1640 30 01/06 1635 99.9 97 27 138/65 96 Ventilator 30% 01/06 1634 99.9 01/06 1600 96 Ventilator 30% 01/06 1347 30 01/06 1200 97 Ventilator 30% 01/06 1141 30 Intake & Output 01/07 1600 01/07 0800 05/ 0000 Intake Total 1586 1900 Output Total 1300 1330 Balance 286 570 Intake, IV 809 1060 Intake, Oral 0 Intake, Tube 557 560 Feeding Intake, Tube 220 280 Irrigant Number 1 Bowel Movements Output, Urine 1300 1330 Patient 172 lb Weight Weight Bed scale Measurement Method Laboratory Tests 01/07 01/06 0425 0425 Chemistry Sodium (137 - 145 mmol/L) 140 139 Potassium (3.5 - 5.1 mmol/L) 3.7 4.1 Chloride (98 - 107 mmol/L) 101 104 Carbon Dioxide (22 - 30 mmol/L) 28 25 Anion Gap (5 - 16) 10 10 BUN (9 - 20 mg/dL) 9 9 Creatinine (0.7 - 1.2 mg/dL) 0.8 0.8 Estimated GFR (>60 ml/min) > 60 > 60 Glucose (65 - 99 mg/dL) 132 H 110 H Calcium (8.4 - 10.2 mg/dL) 8.6 8.2 L Phosphorus (2.5 - 4.5 mg/dL) 2.7 3.5 Magnesium (1.6 - 2.3 mg/dL) 2.1 2.2 Total Bilirubin (0.2 - 1.3 mg/dL) 0.4 0.4 AST (17 - 59 U/L) 23 18 ALT (21 - 72 U/L) 31 35 Creatine Kinase (55 - 170 U/L) 177 H Albumin (3.5 - 5.0 g/dL) 2.9 L 2.9 L Triglycerides (<150 mg/dL) 112 Cholesterol (< 200 MG/DL) 114 LDL Cholesterol, Calc (65 - 129 mg/dL) 56 L HDL Cholesterol (40 - 60 mg/dL) 36 L Cholesterol/HDL Ratio (0.00 - 4.88 %) 3 Amylase (30 - 110 U/L) 61 Lipase (23 - 300 U/L) 23 Hematology CBC w Diff NO MAN DIFF REQ NO MAN DIFF REQ WBC (4.8 - 10.8 /CUMM) 11.5 H 11.5 H RBC (4.70 - 6.10 /CUMM) 3.71 L 3.73 L Hgb (14.0 - 18.0 G/DL) 12.7 L 12.6 L Hct (42 - 52 %) 37.4 L 37.3 L MCV (80.0 - 94.0 FL) 100.8 H 100.0 H MCH (27.0 - 31.0 PG) 34.3 H 33.9 H RDW (11.5 - 14.5 %) 12.5 12.7 Plt Count (130 - 400 /CUMM) 285 259 MPV (7.4 - 10.4 FL) 8.1 8.9 Gran % (42.2 - 75.2 %) 77.6 H 76.7 H Lymphocytes % (20.5 - 51.1 %) 10.3 L 12.1 L Monocytes % (1.7 - 9.3 %) 8.8 9.5 H Eosinophils % (0 - 5 %) 3.0 1.4 Basophils % (0.0 - 2.0 %) 0.3 0.3 Absolute Granulocytes (1.4 - 6.5 /CUMM) 8.9 H 8.8 H Absolute Lymphocytes (1.2 - 3.4 /CUMM) 1.2 1.4 Absolute Monocytes (0.10 - 0.60 /CUMM) 1.0 H 1.1 H Absolute Eosinophils (0.0 - 0.7 /CUMM) 0.3 0.2 Absolute Basophils (0.0 - 0.2 /CUMM) 0 0 PUBS MCHC (33.0 - 37.0 G/DL) 34.0 33.9 01/05 1845 Blood Gas pH (7.35 - 7.45 PH) 7.44 pCO2 (35 - 45 TORR) 36 pO2 (80 - 100 TORR) 113 H HCO3 (21 - 28 MEQ/L) 23 ABG O2 Sat (Measured) (>96.0 %) 97.0 P-50 (Temp Corrected) Y Carboxyhemoglobin (1.5 - 5.0 %) 0.4 L O2 Concentration % 30% Temperature (97.0 - 100.0 FARH) 100.7 H Respiration Rate (BPM) 18 O2 Delivery Method ESPRIT Vent Mode AC Expiratory Pressure (CMH2O/P) 5 Tidal Volume (CC) 500 Miscellaneous Phlebotomy Draw Site RIGHT RADIAL Microbiology Date/Time Procedure - Status Source Growth 01/06 102 Respiratory Culture - RES LOWER RESP STAPH AUREUS 01/06 1022 Gram Stain - RES LOWER RESP ultrasound of all limbs neg cxr unremarkable Impression/Plan Impression/Plan Impression/Plan: General Appearance: well developed/nourished, intubated Head: atraumatic Neck: normal inspection Respiratory: normal breath sounds Cardiovascular: regular rate/rhythm Gastrointestinal: normal bowel sounds, soft, non-tender Extremities: normal inspection, normal capillary refill, no edema Cranial Nerves: PERRL Skin: intact, normal color Skin Temp/Moisture Exam: Warm/Dry IMP REsp failure due to prob intentional od with multiple substances including etoh and marijuana and othe meds including seroquel possibly * sig dts on sig sedation * Sig Psych illness with recent PSychiatric admission with sig psycosis * TOxic metabolic encephalopathy * Suicidal ideation * Mildly elevated cpk upon admision * No sig qtc prolongation or arrthymia or active infection or met acidosis so far * Fever and infiltrate with staph in the sputum consistant with tracheobronchitis REC Keep intubated and sedated today With ativan. cont olanzapine and follow cpk and qtc and mag dily REduce ativan drip to 8 mg this itzel and 7 in am, and do not increase the dose anymore Use ativan prn q1 hr 1-2 mg prn Cont tube feeding Aggresive bowel regimen, supp Change to h2 cordelia for pud prophy Mouth care and increase periodex mouth washes to q 8 hrs COnt cefazolin Can hold on picc line cont heparin sub cut WIll follow Update family if available today juan mcfadden
--- NOTE | 2017-01-07 11:35 | NUR ---
@0800-PT SEDATED ON ATIVAN GTT AT 9MG/HR. OPENS EYES TO VERBAL STIMULI AND FOLLOWS SIMPLE COMMANDS. CONT ON RESTRAINTS-CHIOMA AND 4PT SOFTS FOR CONT ATTEMPTS TO GET OOB AND PULL AT TUBES. AFEBRILE THIS AM. CONT ON VENT-NO CHANGE TO SETTINGS AT THIS TIME. O2SAT 99%. RHONCHI AUSCULTATED AND SUCTIONED FOR MOD AMTS OF [place] THICK SECRETIONS. ETT GODDARD IN PLACE AT 24CM. NSR ST HR 80-90S. BP STABLE. OCC PAC/PVC NOTED. OGT IN PLACE TAPED TO CENTER ETT GODDARD. JEVITY 1.2 INFUSNG AT GOAL RATE 70ML/HR WITH H20 FLUSHES 110ML Q4HRS. ABD SOFT, +BS NOTED. PORTILLO IN PLACE WITH CLEAR YELLOW OUTPUT. SKIN INTACT WITH ALPS IN PLACE. CONT TO MONITOR CLOSELY. CALL STREETER WITHIN REACH.
--- NOTE | 2017-01-07 11:38 | NUR ---
@1000-PT PLACED ON CPAP TRIAL 01/04. JUAN WELL. KLOR 40MEQ PACKET ADMINISTERED FOR K+3.7. NEUTRAPHOS ORD FOR PHOS 2.7. CONT TO MONITOR.
--- NOTE | 2017-01-07 11:39 | NUR ---
@1100-PT CONT ON ATIVAN GTT WITH PLAN TO TITRATE ATIVAN GTT TO 8MG/HR FROM 9MG/HR AT 6PM THIS MEDARDO. PT STARTED ON VERSAD BOLUS Q1HR PRN FOR AGITATION WITH 1ST DOSE ADMINISTERED AT THIS TIME. CONT TO MONITOR CLOSELY. INC CARE PROVIDED, MOUTH CARE PROVIDED
--- NOTE | 2017-01-07 15:20 | NUR ---
Referral received this afternoon from nurding staff in Critical Care Unit. This patient is a 51 year old man, admitted to the hospital on 12/29/16 with respiratory failure in the setting of an overdose. Patient is on a ventilator and will be transferred to psychiatry when medically stable. This afternoon, multiple family members were requesting to speak with the pediatric social worker. I met with patients mother Charlotte, sister Maria Luisa, a friend Yancy, and a cousin. The questions posed really were more medically based, and along with HENRIK Brown, we encouraged them to return to the hospital (they needed to leave now) for a meeting so all questions could be answered appropriately. They were agreeable to this plan. Will follow peripherally and will be able to collaborate with team.
[2017-01-07 16:00] VITALS: BP 112/62
--- NOTE | 2017-01-07 20:00 | NUR ---
MD FULLER MADE AWARE PT'S RIJ MAY BE D/C, STATES SHE WILL REMOVE. PT HAS KAROLINA PICC
[2017-01-08] VITALS: BP 110/60
[2017-01-08 05:13] LABS: ABSOLUTE BASOPHIL COUNT 0 /CUMM (0.0-0.2); ABSOLUTE EOSINOPHIL COUNT 0.5 /CUMM (0.0-0.7); ABSOLUTE GRANULOCYTE CT 8.9 /CUMM (1.4-6.5); ABSOLUTE LYMPH COUNT 1.8 /CUMM (1.2-3.4); ABSOLUTE MONOCYTE COUNT 0.9 /CUMM (0.10-0.60); BASOPHIL % 0.4 % (0.0-2.0); GRANULOCYTE % 73.3 % (42.2-75.2); HEMATOCRIT 37.3 % (42-52); MEAN CORPUSCULAR HGB 34.5 PG (27.0-31.0); MEAN CORPUSCULAR HGB CONC 34.2 G/DL (33.0-37.0); MEAN CORPUSCULAR VOLUME 100.9 FL (80.0-94.0); MEAN PLATELET VOLUME 9.9 FL (7.4-10.4); PLATELET COUNT 170 /CUMM (130-400); RBC DISTRIBUTION WIDTH 12.5 % (11.5-14.5); RED BLOOD CELL CT 3.69 /CUMM (4.70-6.10); WHITE BLOOD CELL COUNT 12.2 /CUMM (4.8-10.8)
--- NOTE | 2017-01-08 07:03 | PN- Resident CRCU ---
Subjective HPI/CRCU Issues: Patient was seen and examined this morning, he is intubated, sedated. No overnight events reported by the nurse. 24 Hour Events: Temperature 98.9, MAXIMUM TEMPERATURE 99.2 Heart rate lowest 82, highest 101 sinus rhythm Blood pressure 95/59, highest 153/71 Ventilator mode A/C, rate 18, peak flow 60, tidal volume 500, PEEP 5, FiO2 50 Ativan 70 mL/h, will titrate over the day, received 2 doses of Versed 2 mg Intake 435, output 2024 Objective Vital Signs & I&O Last 8 Hrs of Vitals and I&O: Intake & Output 01/08 1600 Intake Total Output Total Balance Patient 77.366 kg Weight Weight Bed scale Measurement Method Exam General Appearance: intubated Head: atraumatic, normal appearance Ears, Nose, Throat: normal ENT inspection Neck: normal inspection Respiratory: chest non-tender Cardiovascular: regular rate/rhythm Gastrointestinal: normal bowel sounds, soft, non-tender Extremities: normal inspection, normal capillary refill, normal range of motion, no edema Cranial Nerves: PERRL Skin: intact, normal color, warm/dry Weaning Parameters NIF: 21 Minute Volume: 14.7 Resp rate: 29 Vt: 507 Heart Rate: 97 Weaning Schedule Start Time: 0944 Minute Volume: 10.1 Resp Rate: 21 Vt: 483 Heart Rate: 97 End Time: 1050 Minute Volume: 11.9 Resp Rate: 29 Vt: 412 Heart Rate: 93 Current Medications: Current Medications Sig/Earline Start time Last Medication Dose Route Stop Time Status Admin Acetaminophen 1,000 MG Q6P PRN 12/30 0030 AC 01/06 IV 1634 Cefazolin Sodium 1,000 MG Q8H 01/05 1200 AC 05 IV 1204 Chlordiazepoxide HCl 25 MG Q8 01/08 1145 AC 01/08 PO 1203 Chlorhexidine 15 ML TID 01/03 1600 AC 01/08 Gluconate PO 0947 Famotidine 20 MG BID 01/03 1152 AC 01/08 PO 0947 Fentanyl Citrate 25 MCG Q72H 12 0930 AC 01/07 TOP 1024 Heparin Sodium 5,000 UNIT Q8 12/30 0600 AC 01/08 (Porcine) SC 0537 Lorazepam 2 MG ONCE ONE 01/07 2345 DC 01/06 IV 01/07 2346 2345 Lorazepam 100 MG Q11H 01/07 1500 AC 01/08 Dextrose/Water 1,000 ML IV 0357 Lorazepam 100 MG Q6H 01/03 1200 DC 01/07 Dextrose/Water 1,000 ML IV 01/07 1459 0422 Magnesium Hydroxide 30 ML DAILY PRN 01/01 0945 AC PO Methylene Blue 1 MG .[INTO OG TUBE] 01/02 1800 AC TOP-INJ Midazolam HCl 2 MG Q1P PRN 01/07 1100 AC 01/07 IV 1805 Multivitamins 1 TAB DAILY 01/01 1319 AC 01/08 PO 0947 Olanzapine 5 MG Q6 01/01 1832 AC 01/08 PO 1204 Phosphate 250 MG ONCE ONE 01/08 0800 DC 01/08 PO 01/08 0801 0947 Polyethylene Glycol 17 GM DAILY 01/08 1000 AC 01/08 PO 0947 Senna 187 MG AT BEDTIME PRN 01/05 0756 AC PO Thiamine HCl 50 MG DAILY 01/01 1319 AC 01/08 PO 0947 Impression/Plan Impression/Problem List Impression: Mr. Kinney is a 51 year old male with PMH depression, anxiety, schizophrenia and suicidal ideation previously admitted to [facility] in 2015 who was brought to the [place] ED via ambulance due to episode of unresponsiveness /suicide attempt (40 tabs of 100 mg seroquel). Patient is admitted to the ICU and the following is the management: Respiratory 1. Acute hypercapnic respiratory failure likely due to substance ingestion, including marijuana, seroquel and ETOH * Patient remains intubated with AC, TV 500, FiO2 30, PEEP 5, RR 18. * Ultrasound lower extremity and bilateral upper extremity to rule out DVT in the setting of prolonged immobility, increasing oxygen requirements and generalized swelling of upper extremities. * Continue fentanyl patch 25mcg Q72 * F/U daily CXR while patient intubated * Famotidine 20 mg BID while intubated * Aggressive bowel regimen, Senna and Dulcolax S . * Elevate head of bed/aspiration precuations * Continue aggressive oral Care. 2. Aspiration Pneumonia * Continue Cefazolin Sodium 1000 Q8. * Both LRC are positive for: S. Aureus. Sensitivite to cefazolin Infectious * Patient is afebrile, no leukocytosis * PICC for residential antibiotic coverage is pending Cardiac * Monitor vital signs Q1H * No active cardiac issues at this present time Heme 1. Macrocytosis * Patient noted to have MCV 100.5 * Likely 2/2 chronic alcohol use with vitamin deficiency * Supplement with thiamine PO, multivitamin PO (both via OGT) * Monitor CBC daily in critically ill patient Metabolic 1. Eleveated CPK on admission * CK 568 on admission, unsure how long patient unresponsive before prior to EMS arrival * Last CK 01/07/17 177 Alimentary 1. OGT with tube feeds * Continue Jevity 1.2 alexys with goal rate 70 cc/h * IV Fluids have been discontinued. Neuro 1. Significant psychiatric illness, including depression, anxiety and schizophrenia with suicidal ideation * Psych consult placed and appreciated, will follow up recommendations * Haldol discontinued 2. Toxic metabolic encephalopathy * Urine toxicology did show evidence of: >80.0 Cannabis Screen, >800 Benzodiazepine * Continue intubation for now as patient remains encephalopathic and combative * Continue kimberly and soft restraints x 2UE * Off propofol * Continue ativan drip tapering 4 and then to 2 mg in am * Start Librium 25 mg Q8 * Versed Q1 hour for severe agitation * QTC 407, EKG 01/07/2017 3. Bacterial Conjunctivitis * Resolved * Erythromycin, 1 edel x 4. Skin * Continue repositioning while patient intubated DVTP * Heparin subcutaneous Code: FULL Problem List: 1. Depression 2. Suicide attempt by drug ingestion 3. Polysubstance overdose 4. Respiratory acidosis Pain Ratin Tomorrow's Labs & Rationales: ICU bundle CBC Chest x-ray EKG Plan DVT/Prophylaxis: pharmacological, Heparin SC Code Status: Full Code
--- NOTE | 2017-01-08 07:09 | Transfer of Care Summary ---
Hospital Course Course Hospital Course: Mr. Kinney is a 51 year old male with PMH depression, anxiety, schizophrenia and suicidal ideation previously admitted to [facility] in 2016 who was brought to the [place] ED via ambulance due to episode of unresponsiveness. The patient was noted to have called a friend before this episode of unresponsiveness and noted he "wanted to kill himself". Patient was found laying next to nips of liquor and an empty bottle of seroquel. In the ED: Patient was combative, yelling and had slurred speech. He was administered 3 doses naloxone and 10 mg olanzapine. Patient was intubated after episodes of apnea and unresponsiveness. Vital signs at this time included afebrile, HR 100-140, BP 108/80. Pertinent labs included CK 568, troponin negative, toxicology + for benzos/cannabis. Alcohol 215. Lactate 2.2. Head CT done was negative. CXR showed no acute abnormality. The patient was admitted to the ICU and below is the care he has so far received. #Significant psychiatric illness, including depression, anxiety and schizophrenia with suicidal ideation Upon admission psychiatry consult was obtained. Patient was originally on Haldol however this was changed to olanzapine 5 mg every 6. Patient seems to have had a history of lithium use however was currently not on lithium given his lithium level. A social work consultation was also obtained. #Toxic metabolic encephalopathy Urine toxicology did show evidence of: >80.0 Cannabis Screen, >800 Benzodiazepine Patient had to be maintained on restraints due to aggression and threats to pull out his IV lines. Patient was maintained on propofol to maintain a SAS score of 4. Patient was also placed on an Ativan drip to ensure that he was adequately sedated as he over came his detoxification phase. QTC was followed on a daily basis. We were mindful to ensure the QTC did not exceed 475. Throughout the admission the patient was supplemented with thiamine PO, multivitamin PO (both via OGT) #Acute hypercapnic respiratory failure likely due to substance ingestion, including marijuana, seroquel and ETOH Since the time of admission the patient has remained intubated. Some efforts have been made to extubate the patient however patient became extremely agitated and had to be sedated subsequently. Fentanyl patch has been administered for sedation and pain relief. Chest x-ray was followed daily while the patient is intubated. On day 8 of admission an ultrasound of the lower extremities as well as bilateral upper extremities were done to rule out a DVT own owing to realized edema and a lack of response to medication regimen. #Aspiration Pneumonia Patient was started initially on vancomycin and upon subsequent sensitivities from lower respiratory culture this was changed to cefazolin 1000 every 8. A repeat sputum culture was ordered on the morning of date 8 of admission. #Rhabdomyolysis CK 568 on admission, this was trended periodically as the patient was admitted. Subsequently did come down as the patient was aggressively hydrated. #Bacterial Conjunctivitis Patient did have evidence of bacterial conjunctivitis. Erythromycin 1 application 4 was ordered during day 5 and 6 of admission. Alimentary The patient was maintained on Jevity at goal rate while admitted. Pertinent Lab Results: Urine benzodiazepine greater than 800 NG/ML. Urine cannabis screen greater than 80 NG/ML Serum alcohol 215. SERVICE DATE: 01/06/17- EXAM TYPE: US - US-UNILATERAL VENOUS DOPPLER IMPRESSION: No evidence of deep venous thrombosis in the bilateral upper extremities. DICTATED BY: UGO BUSTAMANTE,ANAL SERVICE DATE: 01/06/17- EXAM TYPE: US - US-EXT BILAT VENOUS DOPPLER IMPRESSION: Normal triplex scan without evidence of deep venous thrombosis involving the bilateral lower extremities. DICTATED BY: VIVIAAN BUSTAMANTE,CANDI Haines Assessment/Plan: 1) Pending above the patient will subsequently be tried to see her extubation is possible. 2) Once the patient is subsequently stabilized Mr. Kinney may be considered for inpatient psychiatry for further monitoring and mood stabilization. He may benefit from rehabilitation. 3) Due to prolonged immobility patient will also require a PT and OT consultation. 4) He will also require swallow evaluation.
[2017-01-08 08:00] VITALS: BP 118/82
--- NOTE | 2017-01-08 10:02 | PN- Psychiatry ---
Assessment/Plan Impression: Identifying Info: 51-year-old AA male brought in by ambulance to [facility] emergency department on [facility] on 12/29/16 status post disclosing to a friend that he was going to kill himself. He was intially unresponsive at home then became combative. Empty liquor and pill bottles were found around him in field. He was subsequently admitted to CCU. SUBJECTIVE (The patient remains sedated) Brief ROS Gait: NA Sleep: NA Appetite: NA OBJECTIVE Mental Status Exam Presentation/Appearance: Lying in hospital bed, sedated with vent and ET tube in place. 2 point soft wrist restraints and posy vest in place. Orientation: NANDO Sensorium: Sedated Eye contact: None Affect: Flat Mood: NANDO, Depression: NANDO Anxiety: NANDO Thought Content: - Per reports SI - NANDO Thought Process: Poverty of content at present Associations: NANDO Speech:None Judgment: Impaired Insight: Impaired Cognition: Memory: NANDO Attention/Concentration: NANDO Fund of Knowledge: NANDO Abstractions:NANDO MMSE: NANDO Per nursing report Ativan drip currently 7mg/hr with plan to reduce to 6mg/hr by tomorrow. Pt has been opening eyes spontaneously at times and has been able to follow simple commands. He has been cooperative with care in general with minimal agitation noted which appears to be only during coughing fits. Plan for extubation tomorrow. Plan for transition to by mouth benzodiazepines. ASSESSMENT 51-year-old -Tongan male with a h/o schizoaffective d/o and PSA presents status post reported suicide attempt. He has been combative and at present is intubated and sedated in the ICU. Some improvement noted. With benefit from continued antipsychotic mood stabilizing medication as well as gradual benzodiazepine taper. Differential diagnosis Delirium due to multiple eitiologies Schizoaffective d/o Alcohol use d/o, moderate Cannabis use d/o, moderate Suggestion: 1. Please continue Zyprexa and continue to monitor QTc. 2. Patient is on PEC. Pt may not leave AMA. Plan for inpatient psychiatric admission pending medical clearance. 3. Please continue to reduce ativan by 20% daily. At present his Ativan drip is at 7mg/hr, it would be prudent to continue reducing the dose as previously 3mg/ hr daily to prevent rebound confusion and agitation. 4. Pt will require sitter as sedation is decreased. Would recommend ordering prior to extubation. Thank you for including psychiatry in this case, we will continue to follow. Subjective Subjective: as above Objective Last 24 Hrs of Vital Signs/I&O Current Medications Sig/Earline Start time Last Medication Dose Route Stop Time Status Admin Acetaminophen 1,000 MG Q6P PRN 12/30 0030 AC 01/06 IV 1634 Cefazolin Sodium 1,000 MG Q8H 01/05 1200 AC 01/08 IV 0357 Chlorhexidine 15 ML TID 01/03 1600 AC 01/08 Gluconate PO 0947 Famotidine 20 MG BID 01/03 1152 AC 01/08 PO 0947 Fentanyl Citrate 25 MCG Q72H 01/10 0930 AC 01/07 TOP 1024 Fentanyl Citrate 12 MCG Q72H 01/04 0930 DC 01/04 TOP 0821 Heparin Sodium 5,000 UNIT Q8 12/30 0600 AC 01/08 (Porcine) SC 0537 Lorazepam 2 MG ONCE ONE 01/07 2345 DC 01/06 IV 01/07 2346 2345 Lorazepam 100 MG Q11H 01/07 1500 AC 01/08 Dextrose/Water 1,000 ML IV 0357 Lorazepam 2 MG Q1P PRN 01/07 1030 DC IV Lorazepam 100 MG Q6H 01/03 1200 DC 01/07 Dextrose/Water 1,000 ML IV 01/07 1459 0422 Magnesium Hydroxide 30 ML DAILY PRN 01/01 0945 AC PO Methylene Blue 1 MG .[INTO OG TUBE] 01/02 1800 AC TOP-INJ Midazolam HCl 2 MG Q1P PRN 01/07 1100 AC 01/07 IV 1805 Multivitamins 1 TAB DAILY 01/01 1319 AC 01/08 PO 0947 Olanzapine 5 MG Q6 01/01 1832 AC 01/08 PO 0537 Phosphate 250 MG ONCE ONE 01/08 0800 DC 01/08 PO 01/08 0801 0947 Polyethylene Glycol 17 GM DAILY 01/08 1000 AC 01/08 PO 0947 Senna 187 MG AT BEDTIME PRN 01/05 0756 AC PO Thiamine HCl 50 MG DAILY 01/01 1319 AC 01/08 PO 0947 Laboratory Tests 01/08/17 0440: Anion Gap 11, Estimated GFR > 60, Glucose 167 H, Calcium 8.0 L, Phosphorus 3.9 , Magnesium 2.1, Total Bilirubin 0.5, AST 31, ALT 42, Albumin 2.9 L, CBC w Diff NO MAN DIFF REQ, RBC 3.69 L, MCV 100.9 H, MCH 34.5 H, RDW 12.5, MPV 9.9, Gran % 73.3, Lymphocytes % 15.0 L, Monocytes % 7.3, Eosinophils % 4.0, Basophils % 0.4, Absolute Granulocytes 8.9 H, Absolute Lymphocytes 1.8, Absolute Monocytes 0.9 H, Absolute Eosinophils 0.5, Absolute Basophils 0, PUBS MCHC 34.2 Vital Signs Date Time Temp Pulse Resp B/P B/P Pulse O2 O2 Flow FiO2 Mean Ox Delivery Rate 01/09 800 99.3 85 18 118/82 97 Ventilator 30% 01/08 0800 97 Ventilator 30% 01/08 0752 30 01/08 0546 30 01/08 0400 97 Ventilator 30% 01/08 0325 30 01/08 0044 30 01/08 0000 99.1 86 18 110/60 98 Ventilator 30% 01/08 0000 98 Ventilator 30% 01/07 2206 30 01/07 2108 30 01/07 2000 98 Ventilator 30% 01/07 1610 30 01/07 1600 97.8 95 18 112/62 99 Ventilator 30% 01/07 1600 99 Ventilator 30% 01/07 1432 30 01/07 1200 97 Ventilator 30% 01/07 1134 30 Intake & Output 01/08 1600 01/08 0800 01/08 0000 Intake Total 1417 1481 Output Total 400 650 Balance 1017 831 Intake, IV 656 673 Intake, Other 60 60 Intake, Tube 481 528 Feeding Intake, Tube 220 220 Irrigant Output, Urine 400 650 Patient 171 lb Weight Weight Bed scale Measurement Method
--- NOTE | 2017-01-08 10:16 | PN- CRCU ---
Subjective HPI/Critical Care Issues: Remains intubated Sedated On lower dose of Ativan Afebrile Adequate urine output Still on 30% FiO2 Eyes and nose positive by 2 L Significant data Sputum culture grew staph aureus Chest x-ray showed bibasilar patchy opacities BUN is 11 creatinine is 0.8 sodium is 134 white count is up to 12.2 with no significant left shift previous ABGs reviewed Objective Current Medications: Current Medications Sig/Earline Start time Last Medication Dose Route Stop Time Status Admin Acetaminophen 1,000 MG Q6P PRN 12/30 0030 AC 01/06 IV 1634 Cefazolin Sodium 1,000 MG Q8H 01/05 1200 AC 01/08 IV 0357 Chlorhexidine 15 ML TID 01/03 1600 AC 01/08 Gluconate PO 0947 Famotidine 20 MG BID 01/03 1152 AC 01/08 PO 0947 Fentanyl Citrate 25 MCG Q72H 01/10 0930 AC 01/07 TOP 1024 Fentanyl Citrate 12 MCG Q72H 01/04 0930 DC 01/04 TOP 0821 Heparin Sodium 5,000 UNIT Q8 12/30 0600 AC 01/08 (Porcine) SC 0537 Lorazepam 2 MG ONCE ONE 01/07 2345 DC 01/06 IV 01/07 2346 2345 Lorazepam 100 MG Q11H 01/07 1500 AC 01/08 Dextrose/Water 1,000 ML IV 0357 Lorazepam 2 MG Q1P PRN 01/07 1030 DC IV Lorazepam 100 MG Q6H 01/03 1200 DC 01/07 Dextrose/Water 1,000 ML IV 01/07 1459 0422 Magnesium Hydroxide 30 ML DAILY PRN 01/01 0945 AC PO Methylene Blue 1 MG .[INTO OG TUBE] 01/02 1800 AC TOP-INJ Midazolam HCl 2 MG Q1P PRN 01/07 1100 AC 01/07 IV 1805 Multivitamins 1 TAB DAILY 01/01 1319 AC 01/08 PO 0947 Olanzapine 5 MG Q6 01/01 1832 AC 01/08 PO 0537 Phosphate 250 MG ONCE ONE 01/08 0800 DC 01/08 PO 01/08 0801 0947 Polyethylene Glycol 17 GM DAILY 01/08 1000 AC 01/08 PO 0947 Senna 187 MG AT BEDTIME PRN 01/05 0756 AC PO Thiamine HCl 50 MG DAILY 01/01 1319 AC 01/08 PO 0947 Vital Signs & I&O Last 24 Hrs of Vitals and I&O: Vital Signs Date Time Temp Pulse Resp B/P B/P Pulse O2 O2 Flow FiO2 Mean Ox Delivery Rate 01/08 08 99.3 85 18 118/82 97 Ventilator 30% 01/08 0800 97 Ventilator 30% 01/08 0752 30 01/08 0546 30 01/08 0400 97 Ventilator 30% 01/08 0325 30 01/08 0044 30 01/08 0000 99.1 86 18 110/60 98 Ventilator 30% 01/08 0000 98 Ventilator 30% 01/07 2206 30 01/07 2108 30 01/07 2000 98 Ventilator 30% 01/07 1610 30 01/07 1600 97.8 95 18 112/62 99 Ventilator 30% 01/07 1600 99 Ventilator 30% 01/07 1432 30 01/07 1200 97 Ventilator 30% 01/07 1134 30 Intake & Output 01/08 1600 01/08 0800 05 0000 Intake Total 1417 1481 Output Total 400 650 Balance 1017 831 Intake, IV 656 673 Intake, Other 60 60 Intake, Tube 481 528 Feeding Intake, Tube 220 220 Irrigant Output, Urine 400 650 Patient 171 lb Weight Weight Bed scale Measurement Method Impression/Plan Impression/Plan Impression/Plan: General Appearance: well developed/nourished, intubated Head: atraumatic Neck: normal inspection Respiratory: normal breath sounds Cardiovascular: regular rate/rhythm Gastrointestinal: normal bowel sounds, soft, non-tender Extremities: normal inspection, normal capillary refill, no edema Cranial Nerves: PERRL Skin: intact, normal color Skin Temp/Moisture Exam: Warm/Dry IMP REsp failure due to prob intentional od with multiple substances including etoh and marijuana and othe meds including seroquel possibly * sig dts on sig sedation * Sig Psych illness with recent PSychiatric admission with sig psycosis * TOxic metabolic encephalopathy * Suicidal ideation * Mildly elevated cpk upon admision * No sig qtc prolongation or arrthymia or active infection or met acidosis so far * Fever and infiltrate with staph in the sputum consistant with tracheobronchitis REC Keep intubated and sedated today With ativan. cont olanzapine and follow qtc and mag dily REduce ativan drip to 4 and then to 2 mg slowly by am Start librium 25 mg q8 hrs and assess mental status Use versed q1 hrs prn if severe agitation returns Cont tube feeding Aggresive bowel regimen, supp Cont other meds Mouth care and increase periodex mouth washes to q 8 hrs COnt cefazolin cont heparin sub cut WIll follow CONt psv trials as tolerated Prog guarded Code Status: Full Code
--- NOTE | 2017-01-08 10:53 | RADIOLOGY REPORT ---
EXAMINATION: XR PORTABLE CHEST CLINICAL INFORMATION: Mechanical ventilation. Intubation. COMPARISON: Several prior chest x-rays, most recent of which is dated 01/07/2017. TECHNIQUE: Portable AP semierect view of the chest was obtained. FINDINGS: Endotracheal tube tip approximately 2 cm above the kaleb. Enteric tube courses into the abdomen with tip coiled within the gastric fundus. Multiple EKG leads overlie the chest. The cardiomediastinal silhouette is within normal limits in size. Central vascular congestion is seen and bibasilar increased reticular opacities are noted, unchanged from the previous exam, consistent with subsegmental atelectasis. Findings are unchanged from the previous exam. No new dense consolidation, effusion or pneumothorax is seen. Bony structures are unremarkable. IMPRESSION: 1. Endotracheal tube tip 2 cm above the kaleb. 2. Enteric tube coiled within the gastric fundus region. 3. Central vascular congestion and bibasilar opacities, likely representing atelectasis, unchanged.
--- NOTE | 2017-01-08 11:16 | NUR ---
@0800-PT SEDATED ON ATIVAN GTT-TITRATED DOWN TO 7MG/HR FROM 8MG/HR. VERSAD PRN BUT HAS NOT RECIEVED A DOSE SINCE 01/07/17 AT 1800. PT OPENS EYES TO VERBAL STIM AND FOLLOWS SIMPLE COMMANDS. TEMP 99.1. CONT ON VENT-NO CHANGE TO SETTINGS AT THIS TIME. O2SAT 96%. RHONCHI AUSCULTATED. SUCTIONED FOR MOD AMTS OF CREAMY PINK TINGED SPUTUM. CXR ORD FOR THIS AM. NSR HR 80S, OCC PACS. OGT WITH JEVITY 1.2 INFUSING AT GOAL RATE OF 70ML/HR WITH 110ML H2O Q4HRS. WILL OBTAIN ORDER FOR MIRALAX THIS AM. PORTILLO IN PLACE WITH ADEQUATE CLEAR YELLOW URINE NOTED. SKIN INTACT. ALPS IN PLACE. PHOS 3.9, OBTAIN ORDER FOR NEUTRAPHOS. CONT TO MONITOR, CALL STREETER WITHIN REACH.
--- NOTE | 2017-01-08 11:25 | NUR ---
@1045-CIRCUIT CHANGED TO VENT VIA RT. PT PLACED ON CPAP TRIAL, PRESSURE SUPPORT 6. PT JUAN WELL. CONT TO MONITOR
[2017-01-08 16:00] VITALS: BP 100/64
[2017-01-09] VITALS: BP 118/62
--- NOTE | 2017-01-09 00:58 | NUR ---
PT INTUBATED AT 30% FIO2, SATURATION 95%, BILATERAL RHONCHE HEARD. SUCTOINED OUT MODERATE AMT OF THICK, WHITE SPUTUM. PT VERY RESTLESS AND AGITATED, VERSED 2MG IV GIVEN, REMAINS ON ATIVAN GTT AT 3MG/H. BILATERAL SOFT WRIST RESTRAINT AND CHIOMA IN PLACE. NSR 80'S,MANUAL BP 118/80. TOLERATING YF OF FS JEVITY 1.2 AT 70ML/H, 110ML WATER FLUSHES Q4H. ACCUCHECK 110, NO COVERAGE GIVEN.
--- NOTE | 2017-01-09 04:35 | NUR ---
PT RESTLESS AND AGITATED. HIS LEGS WERE OVER THE THE SIDERAILS AND KICKED ME ON THE ARMS LOWER ABDOMEN. REMAINS INTUBATED AT 30% FIO2. SATURATION 96%, BILATERAL RHONCHI HEARD.
[2017-01-09 05:43] LABS: ABSOLUTE LYMPH COUNT 1.4 /CUMM (1.2-3.4)
[2017-01-09 05:55] LABS: ABSOLUTE BASOPHIL COUNT 0 /CUMM (0.0-0.2); ABSOLUTE EOSINOPHIL COUNT 0.3 /CUMM (0.0-0.7); ABSOLUTE GRANULOCYTE CT 9.5 /CUMM (1.4-6.5); ABSOLUTE MONOCYTE COUNT 1.3 /CUMM (0.10-0.60); BASOPHIL % 0.4 % (0.0-2.0); EOSINOPHIL % 2.3 % (0-5); GRANULOCYTE % 76.2 % (42.2-75.2); HEMATOCRIT 38.7 % (42-52); MEAN CORPUSCULAR HGB 33.9 PG (27.0-31.0); MEAN CORPUSCULAR VOLUME 99.9 FL (80.0-94.0); MEAN PLATELET VOLUME 8.8 FL (7.4-10.4); RBC DISTRIBUTION WIDTH 12.7 % (11.5-14.5); RED BLOOD CELL CT 3.88 /CUMM (4.70-6.10); WHITE BLOOD CELL COUNT 12.5 /CUMM (4.8-10.8)
[2017-01-09 05:56] LABS: PLATELET COUNT 348 /CUMM (130-400)
--- NOTE | 2017-01-09 08:31 | PN- Resident CRCU ---
See Addendum Subjective HPI/CRCU Issues: Follow up: -Suicide attempt, ingestion of Seroquel -Toxic metabolic encephalopathy -Respiratory failure status intubation Patient was seen and examined this morning, he is alert and tried to talk, I asked him if he wants to write notes, he signed "yes", he couldn't hold the pen. Patient was reassured and went back to sleep. Overnight reports of agitation and kicking upon titrating Ativan, currently running at 60 24 Hour Events: Temperature 100.6, MAXIMUM TEMPERATURE 100.6 Heart rate lowest 72, highest 94 sinus rhythm Blood pressure lowest 99/55, highest 134/71 Mechanical ventilation A/C mode rate 18, peak flow 70, tidal volume 500, PEEP 5, FiO2 30 with saturation 97% Intake 4010, output 4800 Lorazepam running at 60 mL per hour Tube feeding Objective Vital Signs & I&O Last 8 Hrs of Vitals and I&O: 111 Exam General Appearance: alert, intubated Head: atraumatic, normal appearance Ears, Nose, Throat: normal pharynx, normal ENT inspection Neck: normal inspection, supple Respiratory: chest non-tender Cardiovascular: regular rate/rhythm Gastrointestinal: normal bowel sounds, soft, non-tender Extremities: normal inspection, normal capillary refill, normal range of motion, no edema Cranial Nerves: PERRL Weaning Parameters NIF: 30 Minute Volume: 10.7 Resp rate: 36 Vt: 297 Heart Rate: 88 Weaning Schedule Start Time: 1900 Minute Volume: 11.7 Resp Rate: 22 Vt: 469 Heart Rate: 89 End Time: 2000 Minute Volume: 12.2 Resp Rate: 60 Vt: 200 Heart Rate: 100 Current Medications: Current Medications Sig/Earline Start time Last Medication Dose Route Stop Time Status Admin Acetaminophen 1,000 MG Q6P PRN 12/30 0030 AC 01/06 IV 1634 Cefazolin Sodium 1,000 MG Q8H 01/05 1200 AC 01/09 IV 0338 Chlordiazepoxide HCl 25 MG Q8H 01/08 2000 AC 01/09 PO 0338 Chlordiazepoxide HCl 25 MG Q8 01/08 1145 DC 01/08 PO 1203 Chlorhexidine 15 ML TID 01/03 1600 AC 01/09 Gluconate PO 1023 Famotidine 20 MG BID 01/03 1152 AC 01/09 PO 0959 Fentanyl Citrate 25 MCG Q72H 01/10 0930 AC 01/07 TOP 1024 Heparin Sodium 5,000 UNIT Q8 12/30 0600 AC 01/09 (Porcine) SC 0549 Lorazepam 100 MG Q20H 01/08 1700 AC 05 Dextrose/Water 1,000 ML IV 2300 Lorazepam 100 MG Q11H 01/07 1500 DC 01/08 Dextrose/Water 1,000 ML IV 01/08 1700 0357 Magnesium Hydroxide 30 ML DAILY PRN 01/01 0945 AC PO Methylene Blue 1 MG .[INTO OG TUBE] 01/02 1800 AC TOP-INJ Methylprednisolone 40 MG ONCE ONE 01/09 1200 DC IV 01/09 1201 Methylprednisolone 40 MG ONCE ONE 01/09 1100 CAN IV 01/09 1101 Midazolam HCl 2 MG Q1P PRN 01/07 1100 AC 01/09 IV 0249 Multivitamins 1 TAB DAILY 01/01 1319 AC 01/09 PO 0959 Olanzapine 5 MG Q6 01/01 1832 AC 01/09 PO 0548 Phosphate 250 MG ONCE ONE 01/09 0830 DC 01/09 PO 01/09 0831 0959 Polyethylene Glycol 17 GM DAILY 01/08 1000 AC 01/09 PO 0959 Senna 187 MG AT BEDTIME PRN 01/05 0756 AC PO Thiamine HCl 50 MG DAILY 01/01 1319 AC 01/09 PO 0959 Impression/Plan Impression/Problem List Impression: Mr. Kinney is a 51 year old male with PMH depression, anxiety, schizophrenia and suicidal ideation previously admitted to [facility] in 2015 who was brought to the [place] ED via ambulance due to episode of unresponsiveness /suicide attempt (40 tabs of 100 mg seroquel). Patient is admitted to the ICU and the following is the management: Respiratory 1. Acute hypercapnic respiratory failure likely due to substance ingestion, including marijuana, seroquel and ETOH * Patient remains intubated Day#11. Extubation trial today * Patient has high risk of post extubation complications stridor, given prolonged intubation 11 days, will obtain cuff leak test and decide if patient needs steroid dose prior to extubation * Chest x-ray today 01/09 showed nonspecific right lower lobar airspace opacity appears slightly more pronounced since the prior study dated 01/08/2017. Patient had fever of 100.6, WBC remaines stable 12.5, patient is on cefazolin * Consider obtaining lower respiratory sputum culture if patient spikes another temp * Will discontinue Ativan drip and continue fentanyl patch 25mcg Q72 * Consider discontinue Famotidine 20 mg BID after extubation * Aggressive bowel regimen, Senna and Dulcolax S * Elevate head of bed/aspiration precuations * Continue aggressive oral Care * Swallowing evaluation was ordered 2. Aspiration Pneumonia * Continue Cefazolin Sodium 1000 Q8. * Both LRC are positive for: S. Aureus. Sensitivite to cefazolin * Temp of 100.6 this morning, changes in the chest x-ray, consider repeating sputum culture if patient spikes another temp Cardiac * Monitor vital signs Q1H * No active cardiac issues at this present time Heme 1. Macrocytosis * Patient noted to have MCV 100.5 * Likely 2/2 chronic alcohol use with vitamin deficiency * Supplement with thiamine PO, multivitamin PO * Monitor CBC daily in critically ill patient Metabolic 1. Eleveated CPK on admission * CK 568 on admission, unsure how long patient unresponsive before prior to EMS arrival * Last CK 01/07/17 177 Alimentary 1. OGT with tube feeds * Continue Jevity 1.2 alexys with goal rate 70 cc/h * IV Fluids have been discontinued. Neuro 1. Significant psychiatric illness, including depression, anxiety and schizophrenia with suicidal ideation * Psych consult placed and appreciated, will follow up recommendations * Haldol discontinued 2. Toxic metabolic encephalopathy * Urine toxicology did show evidence of: >80.0 Cannabis Screen, >800 Benzodiazepine * Continue kimberly and soft restraints x 2UE, will reassess after extubation * Off propofol and Ativan drip * Continue Librium 25 mg Q8 * Versed Q1 hour for severe agitation * QTC 407, EKG 01/08/2017 3. Bacterial Conjunctivitis * Resolved * Erythromycin, 1 edel x 4. Skin * Continue repositioning while patient intubated DVTP * Heparin subcutaneous Code: FULL Problem List: 1. Suicide attempt by drug ingestion Pain Ratin Tomorrow's Labs & Rationales: CBC ICU bundle Plan DVT/Prophylaxis: pharmacological, Heparin SC Code Status: Full Code
--- NOTE | 2017-01-09 09:42 | RADIOLOGY REPORT ---
EXAMINATION: XR PORTABLE CHEST CLINICAL INFORMATION: Status post intubation. COMPARISON: Chest done on 01/08/2017. TECHNIQUE: Portable frontal view of the chest was obtained. FINDINGS: The tip of the endotracheal tube is located approximately 3.6 cm above the level of the kaleb. The tip of the enteric tube is located below the level of the hemidiaphragm and appears looped within the fundus. Nonspecific persistent bibasilar airspace disease is noted, may represent infiltrate, atelectasis, or combination thereof. The remainder of the lung kenney remain clear. There is no definite radiographic evidence of pulmonary venous hypertension, enlargement of the cardiomediastinal silhouette or pleural effusion identified. Compared to prior study, the airspace opacification involving the right lung base appears slightly more pronounced. The tip of the endotracheal tube is located approximately 1.5 cm higher the prior study. No other significant change. IMPRESSION: Nonspecific right lower lobar airspace opacity appears slightly more pronounced since the prior study dated 01/08/2017. The tip of the endotracheal tube is located approximately 1.5 cm higher as compared to the prior study. No other significant change since 01/08/2017.
--- NOTE | 2017-01-09 13:39 | PN- Psychiatry ---
Assessment/Plan Impression: Identifying Info: 51-year-old AA male brought in by ambulance to [facility] emergency department on [facility] on 12/29/16 status post disclosing to a friend that he was going to kill himself. He was intially unresponsive at home then became combative. Empty liquor and pill bottles were found around him in field. He was subsequently admitted to CCU. SUBJECTIVE (The patient remains sedated) Brief ROS Gait: NA Sleep: NA Appetite: NA OBJECTIVE Mental Status Exam Presentation/Appearance: Lying in hospital bed, sedated with vent and ET tube in place. 2 point soft wrist restraints and posy vest in place. Orientation: NANDO Sensorium: Sedated Eye contact: None Affect: Flat Mood: NANDO, Depression: NANDO Anxiety: NANDO Thought Content: - Per reports SI - NANDO Thought Process: Poverty of content at present Associations: NANDO Speech:None Judgment: Impaired Insight: Impaired Cognition: Memory: NANDO Attention/Concentration: NANDO Fund of Knowledge: NANDO Abstractions:NANDO MMSE: NANDO Per nursing report Ativan drip was discontinued and patient has been transitioned to PO librium. ASSESSMENT 51-year-old -Swazi male with a h/o schizoaffective d/o and PSA presents status post reported suicide attempt. He has been combative and at present is intubated and sedated in the ICU. Some improvement noted. With benefit from continued antipsychotic mood stabilizing medication as well as gradual benzodiazepine taper. Differential diagnosis Delirium due to multiple eitiologies Schizoaffective d/o Alcohol use d/o, moderate Cannabis use d/o, moderate Suggestion: 1. Please continue Zyprexa and continue to monitor QTc. 2. Patient is on PEC. Pt may not leave AMA. Plan for inpatient psychiatric admission pending medical clearance. 3. Please continue to reduce ativan by 20% daily. At present his Ativan drip is at 7mg/hr, it would be prudent to continue reducing the dose as previously 3mg/ hr daily to prevent rebound confusion and agitation. 4. Pt will require sitter as sedation is decreased. Would recommend ordering prior to extubation. Thank you for including psychiatry in this case, we will continue to follow.
--- NOTE | 2017-01-09 20:13 | NUR ---
NURSING NOTE: PT ON VENT AC SETTING AT 0730. AC 18/500/30%/5 AND ATIVAN GTRT INFUSING AT 60 ML/HR OR 6 MG/HR. RATE DECREASED AT 0900 AND TURNED IOFF AT 0950 IN ANTICIPATION OF EXTUBATION. PT PLACED AN WEANING SETTINGS AT 0930 AND EXTUBATED AT 1140. POST EXTUBATION PLACED ON 40% AEROSOL MASK. OVER SEVERAL HOURS FIO2 DECREASED TO 2 LITERS. PULSE OX REMAINING ABOVE 95%. PT IS MORE AWAKE THAN AT 0730 BUT REMAINS CONFUSED/DISORIENTATED. PT HAD SWALLOW EVAL IN AFTERNOON, DID NOT PASS DUE TO LETHARGY AND UNABLE TO FOLLOW COMMANDS WELL. WILL REASSESS IN AM. ATIVAN 1 MG IV GIVEN AT 1999 FOR INCREASING AGITATION. SITTER STARTED AT 1999.
--- NOTE | 2017-01-09 20:45 | NUR ---
A/CONF X2.PUPILS REACTIVE.FOLLOW SIMPLE COMMANDS.VICTORIA WITH +CMS.RESTLESS AND COMBATIVE AT TIMES AND SAFETY PRECAUTION CONT WITH SITTER AND CHIOMA.LUNG SOUNDS DIMINISHED. ON 2L O2 WITH SATS >95%. HOB ELEVATED.IVF CONT VIA PIV SITE. NPO.PORTILLO PATENT WITH GOOD UO. NO PRESSURE ULCER NOTED.PLAN OF CARE REVIEWED
[2017-01-10] VITALS: BP 128/80
[2017-01-10 04:28] LABS: ABSOLUTE BASOPHIL COUNT 0 /CUMM (0.0-0.2); ABSOLUTE EOSINOPHIL COUNT 0.1 /CUMM (0.0-0.7); ABSOLUTE LYMPH COUNT 2.2 /CUMM (1.2-3.4); ABSOLUTE MONOCYTE COUNT 0.9 /CUMM (0.10-0.60); BASOPHIL % 0.2 % (0.0-2.0); EOSINOPHIL % 0.7 % (0-5); GRANULOCYTE % 73.4 % (42.2-75.2); MEAN CORPUSCULAR HGB CONC 33.6 G/DL (33.0-37.0); MEAN CORPUSCULAR VOLUME 101.2 FL (80.0-94.0); MEAN PLATELET VOLUME 8.8 FL (7.4-10.4); PLATELET COUNT 391 /CUMM (130-400); RBC DISTRIBUTION WIDTH 12.3 % (11.5-14.5); RED BLOOD CELL CT 3.86 /CUMM (4.70-6.10); WHITE BLOOD CELL COUNT 12.3 /CUMM (4.8-10.8)
--- NOTE | 2017-01-10 07:12 | PN- Resident CRCU ---
Subjective HPI/CRCU Issues: Follow up: -Suicide attempt, ingestion of Seroquel -Toxic metabolic encephalopathy -Respiratory failure status intubation Patient was seen and examined this morning, he is alert, oriented 3. Patient requested for water, denied chest pain, shortness of breath throat, sore throat, abdominal pain, nausea or vomiting. Bilateral soft wrist strain and Andrew for and safe ambulation and removing IV lines, sitter was ordered overnight as well. Swallow eval is pending. 24 Hour Events: Temperature 98.7, MAXIMUM TEMPERATURE 99.6 Pulse lowest 71, highest 95, blood pressure lowest 90/57, highest 122/62 Respiratory rate 18 on 2 L nasal cannula saturating 100% D5 half-normal saline running at 40 mL/h Intake 810, output 2165 Objective Vital Signs & I&O Last 8 Hrs of Vitals and I&O: 111 Exam General Appearance: well developed/nourished, no apparent distress, alert Head: atraumatic, normal appearance Ears, Nose, Throat: normal pharynx, normal ENT inspection Neck: normal inspection, supple, full range of motion Respiratory: normal breath sounds, chest non-tender, no respiratory distress Cardiovascular: regular rate/rhythm Gastrointestinal: normal bowel sounds, soft, non-tender Extremities: normal inspection, normal capillary refill, normal range of motion, no edema Cranial Nerves: normal hearing, normal speech, PERRL Weaning Parameters NIF: 30 Minute Volume: 10.7 Resp rate: 36 Vt: 297 Heart Rate: 88 Weaning Schedule Start Time: 0855 Minute Volume: 6.5 Resp Rate: 12 Vt: 839 Heart Rate: 90 End Time: 1140 Minute Volume: 7.9 Resp Rate: 16 Vt: 736 Heart Rate: 98 Current Medications: Current Medications Sig/Earline Start time Last Medication Dose Route Stop Time Status Admin Acetaminophen 1,000 MG Q6P PRN / 0030 AC 05/08 IV 1634 Cefazolin Sodium 1,000 MG Q8H /07 1200 AC 05/ IV 0302 Chlordiazepoxide HCl 50 MG Q8H 01/10 1200 AC PO Chlordiazepoxide HCl 25 MG Q8H / 2000 DC 01/09 PO 0338 Chlorhexidine 15 ML TID 01/03 1600 AC 05/12 Gluconate PO 1004 Cyanocobalamin 1,000 MCG DAILY 01/10 1158 AC PO Dextrose/Sodium 1,000 ML .Q24H 01/09 1430 DC 01/09 Chloride IV 1500 Enoxaparin Sodium 40 MG DAILY 01/10 1200 AC SC Famotidine 20 MG BID 01/03 1152 DC 01/09 PO 0959 Fentanyl Citrate 12 MCG Q72H 01/13 0930 AC TOP Fentanyl Citrate 25 MCG Q72H 01/10 0930 DC 01/10 TOP 1003 Haloperidol 2 MG DAILY PRN 01/09 1430 AC IM Heparin Sodium 5,000 UNIT Q8 12/30 0600 DC 01/10 (Porcine) SC 0542 Lorazepam 1 MG Q1 NEEDED PRN 01/09 1430 AC 01/09 IV 2144 Lorazepam 100 MG Q20H 01/08 1700 DC 01/08 Dextrose/Water 1,000 ML IV 2300 Magnesium Hydroxide 30 ML DAILY PRN 01/01 0945 AC PO Methylene Blue 1 MG .[INTO OG TUBE] 01/02 1800 AC TOP-INJ Midazolam HCl 2 MG Q1P PRN 01/07 1100 DC 01/09 IV 0249 Multivitamins 1 TAB DAILY 01/01 1319 AC 01/10 PO 1003 Nicotine 7 MG DAILY 01/11 1000 AC TOP Nicotine 14 MG DAILY 01/09 1502 DC 01/10 TOP 1002 Nystatin 5 ML 4 TIMES/DAY 01/09 1800 AC 01/10 PO 1002 Olanzapine 5 MG Q6 01/01 1832 AC 01/10 PO 0542 Polyethylene Glycol 17 GM DAILY 01/08 1000 AC 01/10 PO 1002 Senna 187 MG AT BEDTIME PRN 01/05 0756 AC 01/10 PO 1002 Thiamine HCl 50 MG DAILY 01/01 1319 AC 01/10 PO 1003 Impression/Plan Impression/Problem List Impression: Mr. Kinney is a 51 year old male with PMH depression, anxiety, schizophrenia and suicidal ideation previously admitted to [facility] in 2015 who was brought to the [place] ED via ambulance due to episode of unresponsiveness /suicide attempt (40 tabs of 100 mg seroquel). Patient is admitted to the ICU and the following is the management: Respiratory 1. Acute hypercapnic respiratory failure likely due to substance ingestion, including marijuana, seroquel and ETOH * Patient was extubated successfully yesterday 01/09/17 * Chest x-ray today 01/09 showed nonspecific right lower lobar airspace opacity appears slightly more pronounced since the prior study dated 01/08/2017. Patient remained afebrile, continue cefazolin * Decrease fentanyl patch to 12mcg Q72 to start fro next administration * Discontinue Famotidine * Aggressive bowel regimen, Senna and Dulcolax S * Continue aggressive oral Care peridex q8 * Patient passed bedside swallow eval, diet was restarted 2. Aspiration Pneumonia * Continue Cefazolin Sodium 1000 Q8. * Both LRC are positive for: S. Aureus. Sensitivite to cefazolin Cardiac * Monitor vital signs Q1H * No active cardiac issues at this present time Heme 1. Macrocytosis * Patient noted to have MCV 100.5 * Likely 2/2 chronic alcohol use with vitamin deficiency * Supplement with thiamine PO, multivitamin PO * Vitamin B12 1000 units daily * Monitor CBC daily in critically ill patient Metabolic 1. Eleveated CPK on admission * CK 568 on admission, unsure how long patient unresponsive before prior to EMS arrival * Last CK 01/07/17 177 Alimentary * Patient passed bedside swallow eval, regular diet was started * Pending official swallow eval Neuro 1. Significant psychiatric illness, including depression, anxiety and schizophrenia with suicidal ideation * Psych consult placed and appreciated, will follow up recommendations * Haldol 2 mg once daily when necessary for severe anxiety 2. Toxic metabolic encephalopathy * Urine toxicology 12/30/16 did show evidence of: >80.0 Cannabis Screen, >800 Benzodiazepine * Continue andrew, sitter. Will discontinue soft wrist restrain. * Off propofol and Ativan drip * Continue Librium 25 mg Q8 * Discontinue midazolam * Continue olanzapine by mouth 5 mg every 6 * QTC 407, EKG 01/08/2017 3. Bacterial Conjunctivitis * Resolved * Erythromycin, 1 edel x 4. DVTP * Discontinue heparin SC, switched to Lovenox Code: FULL Problem List: 1. Depression 2. Suicide attempt 3. Suicide attempt by drug ingestion 4. Polysubstance overdose 5. Respiratory acidosis Pain Ratin Tomorrow's Labs & Rationales: CBC, ICU bundle Plan DVT/Prophylaxis: pharmacological, Heparin SC Code Status: Full Code
[2017-01-10 08:00] VITALS: BP 103/62
--- NOTE | 2017-01-10 09:20 | PN- CRCU ---
Subjective HPI/Critical Care Issues: Much better Off vent stable eating Objective Current Medications: Current Medications Sig/Earline Start time Last Medication Dose Route Stop Time Status Admin Acetaminophen 1,000 MG Q6P PRN 12/30 0030 AC 01/06 IV 1634 Cefazolin Sodium 1,000 MG Q8H 01/05 1200 AC 01/10 IV 0302 Chlordiazepoxide HCl 25 MG Q8H 01/08 2000 AC 01/09 PO 0338 Chlorhexidine 15 ML TID 01/03 1600 AC 01/09 Gluconate PO 1618 Dextrose/Sodium 1,000 ML .Q24H 01/09 1430 AC 01/09 Chloride IV 1500 Famotidine 20 MG BID 01/03 1152 AC 01/09 PO 0959 Fentanyl Citrate 25 MCG Q72H 01/10 0930 AC 01/07 TOP 1024 Haloperidol 2 MG DAILY PRN 01/09 1430 AC IM Heparin Sodium 5,000 UNIT Q8 12/30 0600 AC 01/10 (Porcine) SC 0542 Lorazepam 1 MG Q1 NEEDED PRN 01/09 1430 AC 01/09 IV 2144 Lorazepam 100 MG Q20H 01/08 1700 DC 01/08 Dextrose/Water 1,000 ML IV 2300 Magnesium Hydroxide 30 ML DAILY PRN 01/01 0945 AC PO Methylene Blue 1 MG .[INTO OG TUBE] 01/02 1800 AC TOP-INJ Methylprednisolone 40 MG ONCE ONE 01/09 1200 DC 01/09 IV 01/09 1201 1247 Methylprednisolone 40 MG ONCE ONE 01/09 1100 CAN IV 01/09 1101 Midazolam HCl 2 MG Q1P PRN 01/07 1100 AC 01/09 IV 0249 Multivitamins 1 TAB DAILY 01/01 1319 AC 01/09 PO 0959 Nicotine 14 MG DAILY 01/09 1502 AC 01/09 TOP 1624 Nystatin 5 ML 4 TIMES/DAY 01/09 1800 AC 01/09 PO 1934 Olanzapine 5 MG Q6 01/01 1832 AC 01/10 PO 0542 Polyethylene Glycol 17 GM DAILY 01/08 1000 AC 01/09 PO 0959 Senna 187 MG AT BEDTIME PRN 01/05 0756 AC PO Thiamine HCl 50 MG DAILY 01/01 1319 AC 01/09 PO 0959 Vital Signs & I&O Last 24 Hrs of Vitals and I&O: Vital Signs Date Time Temp Pulse Resp B/P B/P Pulse O2 O2 Flow FiO2 Mean Ox Delivery Rate 01/10 0501 98 Nasal 2.0L Cannula 01/10 0000 98.5 85 20 128/80 96 01/09 2332 96 Nasal 2.0L Cannula 01/10 2000 95 Nasal 2.0L Cannula 01/09 1627 97 Nasal 2.0L Cannula 01/09 1415 Ventilator 30% Intake & Output 01/10 1600 01/10 0800 01/10 0000 Intake Total 320 160 Output Total 640 825 Balance -320 -665 Intake, IV 320 160 Number 0 0 Bowel Movements Output, Urine 640 825 Impression/Plan Impression/Plan Impression/Plan: General Appearance: well developed/nourished, intubated Head: atraumatic Neck: normal inspection Respiratory: normal breath sounds Cardiovascular: regular rate/rhythm Gastrointestinal: normal bowel sounds, soft, non-tender Extremities: normal inspection, normal capillary refill, no edema Cranial Nerves: PERRL Skin: intact, normal color Skin Temp/Moisture Exam: Warm/Dry IMP REsp failure due to prob intentional od with multiple substances including etoh and marijuana and othe meds including seroquel possibly * Resolving sig dts on sig sedation * Sig Psych illness with recent PSychiatric admission with sig psycosis * Improved TOxic metabolic encephalopathy * Previous Suicidal ideation * Resolved Mildly elevated cpk upon admision * No sig qtc prolongation or arrthymia or active infection or met acidosis so far * Fever and infiltrate with staph in the sputum consistant with tracheobronchitis, now on abx REC Ok to feed if ok with swallowing Resume po meds ie olanzapine and librium 50 q 8 and wean off slowly Aggresive bowel regimen, supp Cont other meds Mouth care and increase periodex mouth washes to q 8 hrs COnt cefazolin Can use lovenox instead of heparin WIll follow Ok to the floor when stable Code Status: Full Code
--- NOTE | 2017-01-10 11:13 | NUR ---
PT IS DROWSY, COOPERATIVE WITH INSTRUCTIONS. WRIST RESTRAINTS D/C/D. OOB TO CHAIR( ICU BED). EATING WELL, TAKING MEDS WITH APPLESAUCE, CRYING SOFTLY AT TIMES. CONFUSED CONVERSATION. MONITOR NSR.
--- NOTE | 2017-01-10 12:54 | PN- Psychiatry ---
Assessment/Plan Impression: Identifying Info: 51-year-old AA male brought in by ambulance to [facility] emergency department on [facility] on 12/29/16 status post disclosing to a friend that he was going to kill himself. He was intially unresponsive at home then became combative. Empty liquor and pill bottles were found around him in field. He was subsequently admitted to CCU. SUBJECTIVE Attempted to awaken patient to interview, he briefly opens his eyes twice times but falls back to sleep. Brief ROS Gait: Did not observe Sleep: Adequate Appetite: Adequate per nursing report OBJECTIVE Mental Status Exam Presentation/Appearance: Lying in hospital bed, unable to participate in interview due to somnolence. No restraints, no vents, no ET tube. Orientation: NANDO Sensorium: Sedated Eye contact: None Affect: Flat Mood: NANDO, Depression: NANDO Anxiety: NANDO Thought Content: - Per reports SI - NANDO Thought Process: Poverty of content at present Associations: NANDO Speech:None Judgment: Impaired Insight: Impaired Cognition: Memory: NANDO Attention/Concentration: NANDO Fund of Knowledge: NANDO Abstractions:NANDO MMSE: NANDO Per nursing report patient mentation has improved he's been somnolent but arousable. He continues to be disoriented and is tearful at times however he does make coherent statements intermittently. For example the patient requested that his LIFEGUARD from the connection be called because he felt he was on the wrong medication. We have been in contact sales forecast analyst. ASSESSMENT 51-year-old -Chinese male with a h/o schizoaffective d/o and PSA presents status post reported suicide attempt. He has been combative and at present is intubated and sedated in the ICU. Some improvement noted. With benefit from continued antipsychotic mood stabilizing medication as well as gradual benzodiazepine taper. Differential diagnosis Delirium due to multiple eitiologies, resolving Schizoaffective d/o Alcohol use d/o, moderate Cannabis use d/o, moderate Suggestion: 1. Please continue Zyprexa and continue to monitor QTc. 2. Patient is on PEC. Pt may not leave AMA. Plan for inpatient psychiatric admission pending medical clearance. 3. Please continue to reduce librium 20% daily. 4. Please continue sitter. Thank you for including psychiatry in this case, we will continue to follow. Subjective Subjective: as above Objective Last 24 Hrs of Vital Signs/I&O Current Medications Sig/Earline Start time Last Medication Dose Route Stop Time Status Admin Acetaminophen 1,000 MG Q6P PRN 12/30 0030 AC 01/06 IV 1634 Cefazolin Sodium 1,000 MG Q8H 01/05 1200 AC 01/10 IV 0302 Chlordiazepoxide HCl 50 MG Q8H 01/10 1200 AC PO Chlordiazepoxide HCl 25 MG Q8H 01/08 2000 DC 01/09 PO 0338 Chlorhexidine 15 ML TID 01/03 1600 AC 01/10 Gluconate PO 1004 Cyanocobalamin 1,000 MCG DAILY 01/10 1158 AC PO Dextrose/Sodium 1,000 ML .Q24H 01/09 1430 DC 01/09 Chloride IV 1500 Enoxaparin Sodium 40 MG DAILY 01/10 1200 AC SC Famotidine 20 MG BID 01/03 1152 DC 01/09 PO 0959 Fentanyl Citrate 12 MCG Q72H 01/13 0930 AC TOP Fentanyl Citrate 25 MCG Q72H 01/10 0930 DC 01/10 TOP 1003 Haloperidol 2 MG DAILY PRN 01/09 1430 AC IM Heparin Sodium 5,000 UNIT Q8 12/30 0600 DC 01/10 (Porcine) SC 0542 Lorazepam 1 MG Q1 NEEDED PRN 01/09 1430 AC 01/09 IV 2144 Lorazepam 100 MG Q20H 01/08 1700 DC 01/08 Dextrose/Water 1,000 ML IV 2300 Magnesium Hydroxide 30 ML DAILY PRN 01/01 0945 AC PO Methylene Blue 1 MG .[INTO OG TUBE] 01/02 1800 AC TOP-INJ Midazolam HCl 2 MG Q1P PRN 01/07 1100 DC 01/09 IV 0249 Multivitamins 1 TAB DAILY 01/01 1319 AC 01/10 PO 1003 Nicotine 7 MG DAILY 01/11 1000 AC TOP Nicotine 14 MG DAILY 01/09 1502 DC 01/10 TOP 1002 Nystatin 5 ML 4 TIMES/DAY 01/09 1800 AC 01/10 PO 1002 Olanzapine 5 MG Q6 01/01 1832 AC 01/10 PO 0542 Polyethylene Glycol 17 GM DAILY 01/08 1000 AC 01/10 PO 1002 Senna 187 MG AT BEDTIME PRN 01/05 0756 AC 01/10 PO 1002 Thiamine HCl 50 MG DAILY 01/01 1319 AC 01/10 PO 1003 Laboratory Tests 01/10/17 0300: Anion Gap 11, Estimated GFR > 60, Glucose 102 H, Calcium 9.0, Phosphorus 5.5 H , Magnesium 2.5 H, Total Bilirubin 0.6, AST 39, ALT 45, Albumin 3.3 L, CBC w Diff NO MAN DIFF REQ, RBC 3.86 L, MCV 101.2 H, MCH 34.0 H, RDW 12.3, MPV 8.8, Gran % 73.4, Lymphocytes % 18.2 L, Monocytes % 7.5, Eosinophils % 0.7, Basophils % 0.2, Absolute Granulocytes 9.0 H, Absolute Lymphocytes 2.2, Absolute Monocytes 0.9 H, Absolute Eosinophils 0.1, Absolute Basophils 0, PUBS MCHC 33.6 Vital Signs Date Time Temp Pulse Resp B/P B/P Pulse O2 O2 Flow FiO2 Mean Ox Delivery Rate 01/10 0800 98 Nasal 2.0L Cannula 01/10 0800 97.0 88 16 103/62 98 Nasal 0.5L Cannula 01/10 0501 98 Nasal 2.0L Cannula 01/10 0000 98.5 85 20 128/80 96 01/09 2332 96 Nasal 2.0L Cannula 01/10 2000 95 Nasal 2.0L Cannula 01/09 1627 97 Nasal 2.0L Cannula 01/09 1415 Ventilator 30% Intake & Output 01/10 1600 01/10 0800 01/10 0000 Intake Total 320 160 Output Total 640 825 Balance -320 -665 Intake, IV 320 160 Number 0 0 Bowel Movements Output, Urine 640 825
--- NOTE | 2017-01-10 14:06 | NUR ---
SPEECH THERAPY: PER MD, PT STATUS SIGNIFICANTLY IMPROVED THIS AM AND PT PASSED BEDSIDE SWALLOW SCREEN. A RESULT, MD PLACED PT ON REGULAR DIET/THIN LIQUIDS. PER MST, RN, AND MD, PT TOLERATED BREAKFAST W/ NO COUGHING/DIFFICULTIES. ST ATTEMPTED TO SEE PT FOR SWALLOW RE-ASSESSMENT. HOWEVER, PT MINIMALLY ROUSABLE TO MAXIMUM VERBAL/TACTILE STIMULI. RN AND MD NOTIFIED. MD TO PAGE ST PT'S LEVEL OF ALERTNESS IMPROVES FOR SWALLOW RE-ASSESSMENT. RN TO HOLD PO MEDS/INTAKE AT THIS TIME. ALL IN AGREEMENT.
--- NOTE | 2017-01-10 16:15 | Transfer of Care Summary ---
Hospital Course Course Hospital Course: Please review Dr. West's transferred of care summary for details prior to Mr. Kinney is a 51 year old male with PMH depression, anxiety, schizophrenia and suicidal ideation previously admitted to [facility] in 2016 who was brought to the [place] ED via ambulance due to episode of unresponsiveness /suicide attempt (40 tabs of 100 mg seroquel). Patient is admitted to the ICU and the following is the management: Respiratory 1. Acute hypercapnic respiratory failure likely due to substance ingestion, including marijuana, seroquel and ETOH * Patient was extubated successfully on 01/09/17 * Patient was alert oriented 3 on 01/10/17, passed bedside swallowing evaluation and had breakfast without any significant events. Pending official swallow eval * fentanyl drip was switched off on 01/09/17 * Continue fentanyl patch, decrease dose from 25 to 12 every 72 hours * We'll continue aggressive oral care with peridex q8, aggressive bowel regimen, Senna and Dulcolax S 2. Aspiration Pneumonia * Chest x-ray 01/09 showed nonspecific right lower lobar airspace opacity appears slightly more pronounced since the prior study dated 01/08/2017. Patient remained afebrile, continue cefazolin 1000 Q8 * Both LRC are positive for: S. Aureus. Sensitivite to cefazolin Cardiac * Monitor vital signs * No active cardiac issues at this present time Heme 1. Macrocytosis * Patient noted to have MCV 100.5 * Likely 2/2 chronic alcohol use with vitamin deficiency * Supplement with thiamine PO, multivitamin PO * Vitamin B12 1000 units daily Metabolic 1. Eleveated CPK on admission * CK 568 on admission, unsure how long patient unresponsive before prior to EMS arrival * Last CK 01/07/17 177 Neuro 1. Significant psychiatric illness, including depression, anxiety and schizophrenia with suicidal ideation * Psych consult placed and appreciated, will follow up recommendations * Haldol 2 mg once daily when necessary for severe anxiety 2. Toxic metabolic encephalopathy * Urine toxicology 12/30/16 did show evidence of: >80.0 Cannabis Screen, >800 Benzodiazepine * After extubation, patient was alert oriented 3, cooperative, consequently we discontinued the soft wrist restrain and continue the kimberly, sitter * Propofol and Ativan drip with discontinued prior to extubation, will start to titrate Librium by decreasing the dose to 25 mg every 8, will continue olanzapine 5 mg every 6 and discontinue midazolam * Avoid sedation * QTC 407, EKG 01/08/2017 3. Bacterial Conjunctivitis * Resolved * Erythromycin, 1 edel x 4. DVTP * Patient was initially on heparin subcutaneous, switched to Lovenox on 01/10 Code: FULL Assessment/Plan: please see above
[2017-01-10 16:34] VITALS: BP 108/74
--- NOTE | 2017-01-10 17:46 | NUR ---
NURSING NOTE: PT REFUSING TO TAKE EVENING MEDICATIONS, NYSTATIN AND ZYPREXA. HE STATES THAT HE WILL ONLY TAKE SEROQUEL. LAURIE EMANUEL #[id number] AND DORIS BRAVO #[id number] AWARE. ALSO VERIFIED WITH [facility] BRAVO #[id number] THAT FENTANYL PAT OF 12MCG IS OK TO APPLY. 25 MCG PAT REMOVED IN ICU. DORIS BRAVO #[id number] WILL COME TO BEDSIDE TO SPEAK WITH PT.
--- NOTE | 2017-01-10 18:07 | NUR ---
NURSING NOTE: PT REFUSING TO EAT DINNER AND WANTS TO LEAVE UNLESS HE GETS HIS SEROQUEL. [facility]VO #[id number] AWARE.
--- NOTE | 2017-01-10 19:30 | NUR ---
RECEIVED BEDSIDE REPORT. PT AX1-2 /KULDIPSEY. 2LNS. IV #20 MIAH 01/10/17. SEIZURE PRECUATIONS/ASPIRATION. 1;[address], CHIOMA VEST ON. DURAGESIC PATCH 12MCG ON RIGHT SIDE CHEST. OFFERED NO COMPLAINTS AT THIS TIME. CALL LIGHT WITHIN REACH
--- NOTE | 2017-01-10 20:05 | NUR ---
PT HAD EATEN BREAKFAST AFTER BEING CLEARED BY DR. MARTELL. HE WAS AWAKE, TOOK MEDS WITH NO ISSUES. THIS AFTERNOON PT WAS QUITE LETHARGIC FOR A FEW HOURS. ICU RESIDENT IN TO SEE PT, SPEECH IN AND PT WILL HAVE TO BE NPO FOR NOW UNTIL HE IS MORE AWAKE. REPORT CALLED TO FLOOR. PTS AM FENTANYL PATCH WAS REMOVED AND DISCARDED PER HOUSESTAFF. HE DID APPEAR TO REMAIN MORE AWAKE.
--- NOTE | 2017-01-10 21:40 | NUR ---
PT DTV BY 2100. BY HAS NOT. ATTEMPTED TO ENCOURAGE PT TO VOID IN URINAL UNSUCCESSFUL, ATTEMPTED TO ENCOURAGE FLUIDS UNSUCCESSFUL. BLADDER SCANNER UNAVAILABLE . / VENKATESH MARCELINO MADE AWARE. AT PT BEDSIDE. PER MD WAIT ONE HR THEN STRAIGHT CATH. CLINICAL RANGELAND MANAGEMENT SPECIALIST MADE AWARE.
[2017-01-10 22:30] VITALS: BP 104/60
--- NOTE | 2017-01-11 00:04 | NUR ---
PT WITH 1:1 SITTER AND CHIOMA BUT WAS ABLE TO REACH AROUND AND PULL FLOW METER OUT BREAKING IT CAUSING 50 PSI TO FREE FLOW. THEN HE THREW PHONE ACROSS THE ROOM. REFUSING TO TAKE PO ZYPREXA OR LIBRIUM. IV ATIVAN GIVEN
[2017-01-11 07:21] VITALS: BP 98/64
--- NOTE | 2017-01-11 07:49 | PN- Housestaff ---
See Addendum Subjective Follow-up For: Seroquel overdose leading to respiratory failure suicide attempt schizoaffective disorder Subjective: I saw and examined the patient today morning Overnight Very agitated overnight, refused to take seroquel, finally calmed down with ativan. He is lying in the bed, in [place]. alert and oriented X 3. Reports feeling better, no pain. He appears in no distress, communicating well. Refusing to take medications - asking for seroquel. Review of Systems Constitutional: Reports: see HPI. Comments: ROS negative except the above. Objective Last 24 Hrs of Vital Signs/I&O Vital Signs Date Time Temp Pulse Resp B/P B/P Pulse O2 O2 Flow FiO2 Mean Ox Delivery Rate 01/11 0721 98.4 94 18 98/64 97 Nasal 2.0L Cannula 01/11 0000 Nasal 2.0L Cannula 01/10 2230 98.1 81 18 104/60 97 Nasal 2.0L Cannula 01/10 1936 Nasal 2.0L Cannula 01/10 1634 98.7 91 20 108/74 98 Nasal 2.0L Cannula 01/10 1600 94 Nasal 2.0L Cannula 01/10 0800 98 Nasal 2.0L Cannula 01/10 0800 97.0 88 16 103/62 98 Nasal 0.5L Cannula Intake & Output 01/11 0800 01/11 0000 01/10 1600 Intake Total 250 Output Total 450 Balance -200 Intake, Oral 250 Output, Urine 450 Physical Exam General Appearance: Alert, Oriented X3, Cooperative, No Acute Distress Skin: No Rashes, No Breakdown HEENT: Atraumatic, PERRLA, EOMI Neck: Supple Cardiovascular: Normal S1, Normal S2 Lungs: Clear to Auscultation, Normal Air Movement Abdomen: Normal Bowel Sounds, Soft, No Tenderness Neurological: Normal Gait, Normal Speech, Strength at 5/5 X4 Ext, Normal Tone, Sensation Intact Extremities: No Clubbing, No Cyanosis, No Edema Vascular: Normal Pulses, Pulses Symmetrical Current Medications: Current Medications Sig/Earline Start time Last Medication Dose Route Stop Time Status Admin Acetaminophen 1,000 MG Q6P PRN 12/30 0030 AC 08 IV 1634 Cefazolin Sodium 1,000 MG Q8H 01/05 1200 AC 01/11 IV 1212 Chlordiazepoxide HCl 25 MG Q8H 01/10 2000 AC PO Chlorhexidine 15 ML TID 01/03 1600 AC 01/10 Gluconate PO 1717 Cyanocobalamin 1,000 MCG DAILY 01/10 1158 AC 01/11 PO 0850 Enoxaparin Sodium 40 MG DAILY 01/10 1200 AC 01/11 SC 0850 Fentanyl Citrate 12 MCG Q72H 01/10 1715 AC 01/10 TOP 1822 Haloperidol 2 MG DAILY PRN 01/09 1430 AC IM Lorazepam 1 MG Q1 NEEDED PRN 01/09 1430 AC 01/10 IV 2357 Magnesium Hydroxide 30 ML DAILY PRN 01/01 0945 AC PO Methylene Blue 1 MG .[INTO OG TUBE] 01/02 1800 AC TOP-INJ Multivitamins 1 TAB DAILY 01/01 1319 AC 01/11 PO 0851 Nicotine 7 MG DAILY 01/11 1000 AC 01/11 TOP 0852 Nystatin 5 ML 4 TIMES/DAY 01/09 1800 AC 01/11 PO 1640 Olanzapine 5 MG Q6 01/01 1832 AC 01/11 PO 1641 Polyethylene Glycol 17 GM DAILY 01/08 1000 AC 01/11 PO 0850 Senna 187 MG AT BEDTIME PRN 01/05 0756 AC 01/10 PO 1002 Thiamine HCl 50 MG DAILY 01/01 1319 AC 01/11 PO 0851 Last 24 Hrs of Lab/Abdifatah Results Last 24 Hrs of Labs/Mics: Laboratory Tests 01/11/17 0500: Sodium Cancelled, Potassium Cancelled, Chloride Cancelled, Carbon Dioxide Cancelled, Anion Gap Cancelled, BUN Cancelled, Creatinine Cancelled, Glucose Cancelled, Calcium Cancelled, Phosphorus Cancelled, Magnesium Cancelled, Total Bilirubin Cancelled, AST Cancelled, ALT Cancelled, Albumin Cancelled, CBC w Diff Cancelled, WBC Cancelled, RBC Cancelled, Hgb Cancelled, Hct Cancelled, MCV Cancelled, MCH Cancelled, RDW Cancelled, Plt Count Cancelled, MPV Cancelled, PUBS MCHC Cancelled Assessment/Plan Assessment: Patient is a 51 YO male was BIBA to the ER on 12/29/16 after ingesting 40 pills of seroquel (100mg ) -- around 4000mg of seroquel. He was found unresponsive on his home. PMH : Schizoeffective disorder, depression, anxiety, suicidal ideation, polysubstance abuse. He was found to be in Acute hypercapnic respiratory failure secondary to Overdose & polysubstance abuse including ETOH, Marijuana. Intuabated and sedated from 12/29/16 to 01/09/17 despite efforts to wean hime. He was extubated on . He was transfered to general medicine floor on 01/10/17 as he was more stable. apparently he was very agitated, combative in ICU he was placed on kimberly, 4 point restarints with sitter. He was on tube feeds (jevity 1.2), developed aspiration pneumoina with LRC growing staph aureus started on cefazoline, Bacterial conjunctivitis treated with erythromycin ointment. ~~~~~~~~~~~~~~~~~~~~~~~~~~~~~~~~~~~~~~~~~~~~~~ After transfer on 01/10/17, patient started requesting for seroquel, refused to take all his medications (taking nicotine patch regularly tough). He didnt take any of his librium and olanzepine for the past 24hrs. I spoke with in psychiatrist in [facility], she reported he should be on Librium 25mg QID reducing 20% at a time with olanzepine. He shouldnt be given any seroquel as his body already contains lot of seroquel. 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 Aspiration pneumonia * LRC positive for S.aureus, beta strep c - last on january 06. * Started on cefazoline Q8, received for the past 7days so far (from 01/06/17). * On chlorhexidine mouth wash 15ml TID for oral mucosa care.\ * Nystatin swish and swallow for possible candidiasis Alcohol withdrawl * CIWA scores 4-5 * Macrocytosis secondary to alcohol intake * Ativan Q1 PRN * folate/multivitamin/thiamine DVT Prophylaxis * SC lovenox Code Status * Full code OF Note: [place] is medically clear for discharge, psychiatric input is really appreciated. Problem List: 1. Suicide attempt 2. Depression 3. Polysubstance overdose Pain Ratin Pain Location: n/a Pain Goal: Pain 4 or less Pain Plan: tylenol prn Tomorrow's Labs & Rationales: CBC to monitor leukocytosis
[2017-01-11 14:34] VITALS: BP 104/70
[2017-01-11 23:05] VITALS: BP 117/60
[2017-01-12 06:46] VITALS: BP 130/88
[2017-01-12 08:04] LABS: ABSOLUTE BASOPHIL COUNT 0 /CUMM (0.0-0.2); ABSOLUTE EOSINOPHIL COUNT 0.4 /CUMM (0.0-0.7); ABSOLUTE GRANULOCYTE CT 6.6 /CUMM (1.4-6.5); ABSOLUTE LYMPH COUNT 2.2 /CUMM (1.2-3.4); ABSOLUTE MONOCYTE COUNT 0.8 /CUMM (0.10-0.60); BASOPHIL % 0.3 % (0.0-2.0); GRANULOCYTE % 65.8 % (42.2-75.2); HEMATOCRIT 40.9 % (42-52); MEAN CORPUSCULAR HGB 34.1 PG (27.0-31.0); MEAN CORPUSCULAR VOLUME 100.4 FL (80.0-94.0); MEAN PLATELET VOLUME 8.3 FL (7.4-10.4); PLATELET COUNT 484 /CUMM (130-400); RBC DISTRIBUTION WIDTH 12.3 % (11.5-14.5); RED BLOOD CELL CT 4.07 /CUMM (4.70-6.10); WHITE BLOOD CELL COUNT 10.1 /CUMM (4.8-10.8)
--- NOTE | 2017-01-12 09:01 | PN- Housestaff ---
WALT BUSTAMANTE,KATJA 01/12/17 0901: Subjective Follow-up For: Seroquel overdose leading to respiratory failure suicide attempt schizoaffective disorder Complaints: no complaints Subjective: I followed up and examined the patient today. He is resting comfortably in his bed, not in distress, does not offer any complaints, vitals have been stable. No overnight issues. Of note, he denies any suicidal ideation currently/today, but did mention that she ingested Seroquel previously intentionally as a suicidal attempt, although he said he did not have any particular reason for it at that time. Patient has 1:1 sitter in his room. Review of Systems Constitutional: Reports: see HPI. Objective Last 24 Hrs of Vital Signs/I&O Vital Signs Date Time Temp Pulse Resp B/P B/P Pulse O2 O2 Flow FiO2 Mean Ox Delivery Rate 01/12 2239 97.8 69 22 124/88 99 Room Air 01/12 1600 Room Air 01/12 1455 98.0 80 18 124/76 98 Room Air 01/12 0800 Room Air 01/12 0646 97.5 77 18 130/88 94 Room Air 01/11 2305 97.5 82 20 117/60 98 Room Air Intake & Output 01/12 1600 01/12 0800 01/12 0000 Intake Total 360 120 120 Output Total 400 Balance 360 120 -280 Intake, IV 10 Intake, Oral 350 120 120 Output, Urine 400 Physical Exam General Appearance: Alert, Oriented X3, Cooperative, No Acute Distress Other Physical Findings: Skin: No Rashes, No Breakdown HEENT: Atraumatic, PERRLA, EOMI Neck: Supple Cardiovascular: Normal S1, Normal S2 Lungs: Clear to Auscultation, Normal Air Movement Abdomen: Normal Bowel Sounds, Soft, No Tenderness Neurological: Normal Gait, Normal Speech, Strength at 5/5 X4 Ext, Normal Tone, Sensation Intact Extremities: No Clubbing, No Cyanosis, No Edema Vascular: Normal Pulses, Pulses Symmetrical Psychiatric: Calm, no suicidal ideation, coherent Current Medications: Current Medications Sig/Earline Start time Last Medication Dose Route Stop Time Status Admin Acetaminophen 1,000 MG Q6P PRN 12/30 0030 AC 01/06 IV 1634 Cefazolin Sodium 1,000 MG Q8H 01/05 1200 DC 01/12 IV 1310 Chlordiazepoxide HCl 25 MG Q8H 01/10 2000 AC 01/12 PO 2015 Chlorhexidine 15 ML TID 01/03 1600 AC 01/12 Gluconate PO 180 Cyanocobalamin 1,000 MCG DAILY 01/10 1158 AC 01/12 PO 0929 Enoxaparin Sodium 40 MG DAILY 01/10 1200 AC 01/12 SC 0931 Fentanyl Citrate 12 MCG Q72H 01/10 1715 AC 01/10 TOP 1822 Haloperidol 2 MG DAILY PRN 01/09 1430 AC IM Lorazepam 1 MG Q1 NEEDED PRN 01/09 1430 AC 01/10 IV 2357 Magnesium Hydroxide 30 ML DAILY PRN 01/01 0945 AC PO Methylene Blue 1 MG .[INTO OG TUBE] 01/02 1800 AC TOP-INJ Multivitamins 1 TAB DAILY 01/01 1319 AC 01/12 PO 0930 Nicotine 7 MG DAILY 01/11 1000 AC 01/12 TOP 0930 Nystatin 5 ML 4 TIMES/DAY 01/09 1800 AC 01/12 PO 1802 Olanzapine 5 MG Q6 01/01 1832 AC 01/12 PO 1802 Polyethylene Glycol 17 GM DAILY 01/08 1000 AC 01/11 PO 0850 Senna 187 MG AT BEDTIME PRN 01/05 0756 AC 01/10 PO 1002 Thiamine HCl 50 MG DAILY 01/01 1319 AC 01/12 PO 0930 Last 24 Hrs of Lab/Abdifatah Results Last 24 Hrs of Labs/Mics: Laboratory Tests 01/12/17 0620: CBC w Diff NO MAN DIFF REQ, RBC 4.07 L, MCV 100.4 H, MCH 34.1 H, RDW 12.3, MPV 8.3, Gran % 65.8, Lymphocytes % 22.1, Monocytes % 7.8, Eosinophils % 4.0, Basophils % 0.3, Absolute Granulocytes 6.6 H, Absolute Lymphocytes 2.2, Absolute Monocytes 0.8 H, Absolute Eosinophils 0.4, Absolute Basophils 0, PUBS MCHC 34.0 Orders CIWA Score (last 24 hrs): not on CIWA protocol reporting since 01/05/17 Assessment/Plan Assessment: Patient is a 51 YO male was BIBA to the ER on 12/29/16 after ingesting 40 pills of seroquel (100mg ) -- around 4000mg of seroquel. He was found unresponsive on his home. PMH : Schizoeffective disorder, depression, anxiety, suicidal ideation, polysubstance abuse. He was found to be in Acute hypercapnic respiratory failure secondary to Overdose & polysubstance abuse including ETOH, Marijuana. Intuabated and sedated from 12/29/16 to 01/09/17 despite efforts to wean hime. He was extubated on . He was transfered to general medicine floor on 01/10/17 as he was more stable. Apparently he was very agitated, combative in ICU he was placed on kimberly, 4 point restarints with sitter. He was on tube feeds (jevity 1.2), developed aspiration pneumoina with LRC growing staph aureus started on cefazoline, Bacterial conjunctivitis treated with erythromycin ointment. ~~~~~~~~~~~~~~~~~~~~~~~~~~~~~~~~~~~~~~~~~~~~~~ After transfer on 01/10/17, patient started requesting for seroquel, refused to take all his medications (taking nicotine patch regularly tough). He didnt take any of his librium and olanzepine for the past 24hrs. Housestaff spoke with in psychiatrist in [facility] on 01/11/17, she reported he should be on Librium 25mg QID reducing 20% at a time with olanzepine. He shouldnt be given any seroquel as his body already contains lots of seroquel. 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 Aspiration pneumonia * LRC positive for S.aureus, beta strep c - last on january 06. * Started on cefazoline Q8, stopped today. * On chlorhexidine mouth wash 15ml TID for oral mucosa care. * Nystatin swish and swallow for possible candidiasis Alcohol withdrawl * Off CIWA protocol * Macrocytosis secondary to alcohol intake * Continue folate/multivitamin/thiamine DVT Prophylaxis * SC lovenox Code Status * Full code OF Note: [place] is medically clear for discharge, psychiatric input is really appreciated. Problem List: 1. Suicide attempt 2. Polysubstance overdose Pain Ratin Pain Location: - Pain Goal: Pain 4 or less Pain Plan: prn Tomorrow's Labs & Rationales: CBC COREY BRADLEY MD 01/12/17 1724: Attending MD Review Statement Attending Statement Attending MD Statement: examined this patient, discuss w/resident/PA/DIRECTOR PERSONAL, agreed w/resident/PA/DIRECTOR PERSONAL, reviewed EMR data (avail), discussed with nursing, amended to note Attending Assessment/Plan: The patient was seen and discussed with house staff. Behavior today more appropriate. The patient is taking medications. OK to discontinue antibiotics ( Ancef). Should be ready for psychiatry transfer.
[2017-01-12 14:55] VITALS: BP 124/76
--- NOTE | 2017-01-12 15:56 | NUR ---
PT TAKEN OFF IV ABX PER MD DECISION. PT IN NO RESP DISTRESS. SATS WNL ON RA. 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 FURNITURE ARRANGER KATJA CONTACTED IF ANY PO ABX NECESSARY. PENDING POSSIBLE NEW ORDERS. EVENING RN TO FOLLOW.
--- NOTE | 2017-01-12 20:40 | NUR ---
DROWSY BUT ALERT. VITAL SIGNS STABLE. DENIES CHEST PAIN. + PULSES DENIES NUMBNESS/TINGLING. DIMINISHED LUNG SOUNDS THROUGHOUT. SKIN C/D/I. WEAK GAIT. ASSIST X 2. NO DISCOMFORT NOTED. WILL CONTINUE TO MONITOR
[2017-01-12 22:39] VITALS: BP 124/88
--- NOTE | 2017-01-13 06:40 | NUR ---
NURSING NOTE: PATIENT IS REFUSING ZYDIS AT THIS TIME AND REQUESTING TO SPEAK WITH HIS MD TO "CHANGE HIS MEDICATION BACK TO WHAT IT WAS BEFORE." HE IS BECOMING AGGITATED AND REFUSING PRN MEDICATIONS WELL. MD [place] 108 MADE AWARE; STATED THAT PATIENTS MD WILL BE UP TO SPEAK WITH HIM IN A HALF HOUR. PATIENT MADE AWARE, WILL CONTINUE TO MONITOR.
[2017-01-13 06:43] VITALS: BP 110/70
--- NOTE | 2017-01-13 07:23 | PN- Housestaff ---
LURDES BUSTAMANTE,DORIS 01/13/17 0723: Subjective Follow-up For: Suicidal ideation Subjective: I saw and examined the patient today morning No overnight events He is lying in the bed, requesting seroquel, xanax. Reports pain in his left knee. Not associated with any fevers, chills. Denies suicidal ideation, requesting discharge. Apparently whispered about suicidal ideation if not discharged to home. Review of Systems Constitutional: Reports: see HPI. Comments: ROS negative except the above. Objective Last 24 Hrs of Vital Signs/I&O Vital Signs Date Time Temp Pulse Resp B/P B/P Pulse O2 O2 Flow FiO2 Mean Ox Delivery Rate 01/13 0643 97.8 78 20 110/70 98 Room Air 01/12 2239 97.8 69 22 124/88 99 Room Air 01/12 1600 Room Air 01/12 1455 98.0 80 18 124/76 98 Room Air 01/12 0800 Room Air Intake & Output 01/13 0800 01/13 0000 01/12 1600 Intake Total 270 360 Output Total Balance 270 360 Intake, IV 30 10 Intake, Oral 240 350 Number 0 Bowel Movements Physical Exam General Appearance: Alert, Oriented X3, Cooperative, No Acute Distress Skin: No Rashes, No Breakdown HEENT: Atraumatic, PERRLA, EOMI Neck: Supple, No JVD Cardiovascular: Normal S1, Normal S2, No Murmurs Lungs: Clear to Auscultation, Normal Air Movement Abdomen: Normal Bowel Sounds, Soft, No Tenderness Neurological: Normal Speech, Strength at 5/5 X4 Ext, Normal Tone, Sensation Intact, Cranial Nerves 3-12 NL Extremities: No Clubbing, No Cyanosis, No Edema Vascular: Pulses Symmetrical Current Medications: Current Medications Sig/Earline Start time Last Medication Dose Route Stop Time Status Admin Acetaminophen 1,000 MG Q6P PRN 12/30 0030 AC 08 IV 1634 Cefazolin Sodium 1,000 MG Q8H 01/05 1200 DC 01/12 IV 1310 Chlordiazepoxide HCl 20 MG TID 01/13 1000 AC PO Chlordiazepoxide HCl 25 MG Q8H 01/10 2000 DC 01/12 PO 2015 Chlorhexidine 15 ML TID 01/03 1600 AC 01/12 Gluconate PO 2250 Cyanocobalamin 1,000 MCG DAILY 01/10 1158 AC 01/12 PO 0929 Enoxaparin Sodium 40 MG DAILY 01/10 1200 AC 01/12 SC 0931 Fentanyl Citrate 12 MCG Q72H 01/10 1715 AC 01/10 TOP 1822 Haloperidol 2 MG DAILY PRN 01/09 1430 AC IM Lorazepam 1 MG Q1 NEEDED PRN 01/09 1430 AC 01/13 IV 0233 Magnesium Hydroxide 30 ML DAILY PRN 01/01 0945 AC PO Methylene Blue 1 MG .[INTO OG TUBE] 01/02 1800 AC TOP-INJ Multivitamins 1 TAB DAILY 01/01 1319 AC 01/12 PO 0930 Nicotine 7 MG DAILY 01/11 1000 AC 01/12 TOP 0930 Nystatin 5 ML 4 TIMES/DAY 01/09 1800 AC 01/12 PO 2251 Olanzapine 5 MG Q6 01/01 1832 AC 01/12 PO 2252 Polyethylene Glycol 17 GM DAILY 01/08 1000 AC 01/11 PO 0850 Senna 187 MG AT BEDTIME PRN 01/05 0756 AC 01/10 PO 1002 Thiamine HCl 50 MG DAILY 01/01 1319 AC 01/12 PO 0930 Last 24 Hrs of Lab/Abdifatah Results Last 24 Hrs of Labs/Mics: Laboratory Tests 01/13/17 0632: CBC w Diff NO MAN DIFF REQ, RBC 4.12 L, MCV 101.2 H, MCH 34.3 H, RDW 12.8, MPV 8.1, Gran % 58.9, Lymphocytes % 28.9, Monocytes % 7.2, Eosinophils % 4.6, Basophils % 0.4, Absolute Granulocytes 5.4, Absolute Lymphocytes 2.6, Absolute Monocytes 0.7 H, Absolute Eosinophils 0.4, Absolute Basophils 0, PUBS MCHC 33.9 Assessment/Plan Assessment: Patient is a 51 YO male was BIBA to the ER on 12/29/16 after ingesting 40 pills of seroquel (100mg ) -- around 4000mg of seroquel. He was found unresponsive on his home. PMH : Schizoeffective disorder, depression, anxiety, suicidal ideation, polysubstance abuse. He was found to be in Acute hypercapnic respiratory failure secondary to Overdose & polysubstance abuse including ETOH, Marijuana. Intuabated and sedated from 12/29/16 to 01/09/17 despite efforts to wean hime. He was extubated on . He was transfered to general medicine floor on 01/10/17 as he was more stable. Apparently he was very agitated, combative in ICU he was placed on kimberly, 4 point restarints with sitter. He was on tube feeds (jevity 1.2), developed aspiration pneumoina with LRC growing staph aureus started on cefazoline, Bacterial conjunctivitis treated with erythromycin ointment. ~~~~~~~~~~~~~~~~~~~~~~~~~~~~~~~~~~~~~~~~~~~~~~ After transfer on 01/10/17, patient started requesting for seroquel, refused to take all his medications. He shouldnt be given any seroquel as his body already contains lots of seroquel. Awaiting inpatient psychiatry palcement. Current recommendations reduced librium from 25mg to 20mg TID (reducing by 20% daily per psych), and continuing olanzepine 5mg Q6 -- If not tolerating give IV ativan to calm down as a last resort, also on haldol 2mg IM for agitation. Aspiration pneumonia * LRC positive for S.aureus, beta strep c - last on january 06. * Discontinued cefazoline - given 7days total. * On chlorhexidine mouth wash 15ml TID for oral mucosa care. * Nystatin swish and swallow for possible candidiasis Alcohol withdrawl * Off CIWA protocol * Macrocytosis secondary to alcohol intake * Continue folate/multivitamin/thiamine DVT Prophylaxis * SC lovenox Code Status * Full code OF Note: Planning for inpatient psychiatry placement. PEC signed - available in chart. Cant leave AMA - on librium taper. Problem List: 1. Depression 2. Suicide attempt 3. Polysubstance overdose Pain Ratin Pain Location: left knee Pain Goal: Pain 4 or less Pain Plan: tylenol prn Tomorrow's Labs & Rationales: NONE LIDIA LOZANO MD 01/13/17 1209: Attending MD Review Statement Attending Statement Attending Statement: examined this patient, discuss w/resident/PA/RADIAGRAPH OPERATOR, agreed w/resident/PA/RADIAGRAPH OPERATOR, reviewed EMR data (avail), discussed with nursing, discussed with case mgmt, amended to note Attending Assessment/Plan: Patient seen and examined. I see notes reviewed. Alert and oriented 3, in any acute distress. No issues overnight overnight reported by nursing staff. Patient is alert and oriented 3. He is eager to be discharged home. Nursing staff reports that during physical therapy patient voiced suicidal ideations if he is not discharged home. He has been seen by the psychiatric service and recommendations a to maintain him on a PEC and not allow him to sign out of the hospital AGAINST MEDICAL ADVICE while he continues his librium taper. This plan of care has been discussed with the patient. Other than his benzodiazepine taper his not undergoing any other active medical treatment. Awaiting placement in an inpatient psychiatric
[2017-01-13 08:43] LABS: ABSOLUTE BASOPHIL COUNT 0 /CUMM (0.0-0.2); ABSOLUTE EOSINOPHIL COUNT 0.4 /CUMM (0.0-0.7); ABSOLUTE GRANULOCYTE CT 5.4 /CUMM (1.4-6.5); ABSOLUTE LYMPH COUNT 2.6 /CUMM (1.2-3.4); ABSOLUTE MONOCYTE COUNT 0.7 /CUMM (0.10-0.60); BASOPHIL % 0.4 % (0.0-2.0); EOSINOPHIL % 4.6 % (0-5); GRANULOCYTE % 58.9 % (42.2-75.2); HEMATOCRIT 41.7 % (42-52); MEAN CORPUSCULAR HGB 34.3 PG (27.0-31.0); MEAN CORPUSCULAR HGB CONC 33.9 G/DL (33.0-37.0); MEAN CORPUSCULAR VOLUME 101.2 FL (80.0-94.0); MEAN PLATELET VOLUME 8.1 FL (7.4-10.4); PLATELET COUNT 521 /CUMM (130-400); RBC DISTRIBUTION WIDTH 12.8 % (11.5-14.5); RED BLOOD CELL CT 4.12 /CUMM (4.70-6.10); WHITE BLOOD CELL COUNT 9.1 /CUMM (4.8-10.8)
--- NOTE | 2017-01-13 11:21 | PN- Psychiatry ---
Assessment/Plan Impression: Identifying Info: 51-year-old AA male brought in by ambulance to [facility] emergency department on [facility] on 12/29/16 status post disclosing to a friend that he was going to kill himself. He was intially unresponsive at home then became combative. Empty liquor and pill bottles were found around him in field. Admitted to CCU and now medicine. SUBJECTIVE "I feel good, I'm ready to go home." Pt recounts story of suicide attempt, he reports that he was at a store when a voice in his head told him to go home and kill himself. He states the voices are not there all the time but he has to listen to them when they are there. Pt offered probable cause paper to request heiring btu declines. Brief ROS Gait: Impaired Sleep: Adequate Appetite: Adequate OBJECTIVE Mental Status Exam Presentation/Appearance: Lying in hospital bed, hospital garb. Orientation: x3 Sensorium: Awake and alert Eye contact: Fair Affect: Full range Mood: "good" Depression: Denies Anxiety: Denies Thought Content: - Per report SI - Denies SI at time of interview. No HI/AVH Thought Process: Linear Associations: Appropriate Speech:Normal tone and rate Judgment: Impaired Insight: Impaired Cognition: Memory: recent deficits Attention/Concentration: Grossly intact Fund of Knowledge: Adequate Abstractions:Did not assess MMSE: Did not assess Per nursing report patient has been asking to leave but has remained in behavioral control. Has been bragging about punching staff in past and not getting arrested for it. Per medical staff report this patient is medically clear. Per Physical Therapy report pt requires a walker to ambulate at this time. He made suicidal statesments durring PT eval including stating he would likely shoot himself in the head if he has to go to inpatient psych which may cause him to lose his car. ASSESSMENT 51-year-old -[place] male with a h/o schizoaffective d/o and PSA presents status post reported suicide attempt. He has been combative and at present is intubated and sedated in the ICU. Some improvement noted. With benefit from continued antipsychotic mood stabilizing medication as well as gradual benzodiazepine taper. Differential diagnosis Delirium due to multiple eitiologies, resolving Schizoaffective d/o Alcohol use d/o, moderate Cannabis use d/o, moderate Suggestion: 1. Please continue Zyprexa and continue to monitor QTc. 2. Patient is on PEC. Pt may not leave AMA. Plan for inpatient psychiatric admission pending medical clearance. 3. Please continue to reduce librium 20% daily. 4. Please continue sitter. Thank you for including psychiatry in this case, we will continue to follow. Subjective Subjective: as above Objective Last 24 Hrs of Vital Signs/I&O Current Medications Sig/Earline Start time Last Medication Dose Route Stop Time Status Admin Acetaminophen 1,000 MG Q6P PRN 12/30 0030 AC 01/06 IV 1634 Cefazolin Sodium 1,000 MG Q8H 01/05 1200 DC 01/12 IV 1310 Chlordiazepoxide HCl 20 MG TID 01/13 1000 AC 01/13 PO 1203 Chlordiazepoxide HCl 25 MG Q8H 01/10 2000 DC 01/12 PO 2015 Chlorhexidine 15 ML TID 01/03 1600 AC 01/13 Gluconate PO 1202 Cyanocobalamin 1,000 MCG DAILY 01/10 1158 AC 01/13 PO 1202 Enoxaparin Sodium 40 MG DAILY 01/10 1200 AC 01/13 SC 1203 Fentanyl Citrate 12 MCG Q72H 01/10 1715 AC 01/10 TOP 1822 Haloperidol 2 MG DAILY PRN 01/09 1430 AC IM Lorazepam 1 MG Q1 NEEDED PRN 01/09 1430 AC 01/13 IV 0233 Magnesium Hydroxide 30 ML DAILY PRN 01/01 0945 AC PO Methylene Blue 1 MG .[INTO OG TUBE] 01/02 1800 AC TOP-INJ Multivitamins 1 TAB DAILY 01/01 1319 AC 01/13 PO 1202 Nicotine 7 MG DAILY 01/11 1000 AC 01/13 TOP 1202 Nystatin 5 ML 4 TIMES/DAY 01/09 1800 AC 01/13 PO 1203 Olanzapine 5 MG Q6 01/01 1832 AC 01/13 PO 1202 Polyethylene Glycol 17 GM DAILY 01/08 1000 AC 01/11 PO 0850 Senna 187 MG AT BEDTIME PRN 01/05 0756 AC 01/10 PO 1002 Thiamine HCl 50 MG DAILY 01/01 1319 AC 01/13 PO 1202 Laboratory Tests 01/13/17 0632: CBC w Diff NO MAN DIFF REQ, RBC 4.12 L, MCV 101.2 H, MCH 34.3 H, RDW 12.8, MPV 8.1, Gran % 58.9, Lymphocytes % 28.9, Monocytes % 7.2, Eosinophils % 4.6, Basophils % 0.4, Absolute Granulocytes 5.4, Absolute Lymphocytes 2.6, Absolute Monocytes 0.7 H, Absolute Eosinophils 0.4, Absolute Basophils 0, PUBS MCHC 33.9 01/12/17 0620: CBC w Diff NO MAN DIFF REQ, RBC 4.07 L, MCV 100.4 H, MCH 34.1 H, RDW 12.3, MPV 8.3, Gran % 65.8, Lymphocytes % 22.1, Monocytes % 7.8, Eosinophils % 4.0, Basophils % 0.3, Absolute Granulocytes 6.6 H, Absolute Lymphocytes 2.2, Absolute Monocytes 0.8 H, Absolute Eosinophils 0.4, Absolute Basophils 0, PUBS MCHC 34.0 01/11/17 0500: Sodium Cancelled, Potassium Cancelled, Chloride Cancelled, Carbon Dioxide Cancelled, Anion Gap Cancelled, BUN Cancelled, Creatinine Cancelled, Glucose Cancelled, Calcium Cancelled, Phosphorus Cancelled, Magnesium Cancelled, Total Bilirubin Cancelled, AST Cancelled, ALT Cancelled, Albumin Cancelled, CBC w Diff Cancelled, WBC Cancelled, RBC Cancelled, Hgb Cancelled, Hct Cancelled, MCV Cancelled, MCH Cancelled, RDW Cancelled, Plt Count Cancelled, MPV Cancelled, PUBS MCHC Cancelled Vital Signs Date Time Temp Pulse Resp B/P B/P Pulse O2 O2 Flow FiO2 Mean Ox Delivery Rate 01/13 1044 Ventilator 30% 01/13 0643 97.8 78 20 110/70 98 Room Air 01/12 2239 97.8 69 22 124/88 99 Room Air 01/12 1600 Room Air 01/12 1455 98.0 80 18 124/76 98 Room Air Intake & Output 01/13 1600 01/13 0800 01/13 0000 Intake Total 270 Output Total Balance 270 Intake, IV 30 Intake, Oral 240 Number 0 Bowel Movements
--- NOTE | 2017-01-13 13:16 | Discharge Summary ---
Visit Information Visit Dates Admission Date: 12/29/16 Discharge Date: 01/14/2017 Hospital Course Course Attending Physician: LIDIA LOZANO M.D Primary Care Physician: UNKNOWN Consulting Request: Consulting Specialty: Pulmonary Disease Consulting Physician: Dr. Barajas Reason for Consult: Intubation for airway protection Hospital Course: This is a 51 year old male with PMH depression, anxiety, schizophrenia and suicidal ideation previously admitted to [facility] in 2016 who was brought to the [place] ED by ambulance due to episode of unresponsiveness. The patient was noted to have called a friend before this episode of unresponsiveness and noted he "wanted to kill himself". Patient was found laying next to nips of liquor and an empty bottle of seroquel. In the ED: Patient was combative, yelling and had slurred speech. He was administered 3 doses naloxone and 10 mg olanzapine. Patient was intubated after episodes of apnea and unresponsiveness. Vital signs at this time included afebrile, HR 100-140, BP 108/80. Pertinent labs included CK 568, troponin negative, toxicology + for benzos/cannabis. Alcohol 215. Lactate 2.2. Head CT done was negative. CXR showed no acute abnormality. The patient was admitted to the ICU intubated on admissio. He remained intubated to January 10 when he was successfully extubated and transferred to general medicine floor. While in the hospital we managed him for the following conditions. Significant psychiatric illness, including depression, anxiety and schizophrenia with suicidal ideation Upon admission psychiatry consult was obtained. Patient was originally on Haldol however this was changed to olanzapine 5 mg every 6. Patient seems to have had a history of lithium use however was currently not on lithium given his lithium level. He continued expressing suicidal ideation after extubation. This patient will benefit from inpatient psych service post discharge. Toxic metabolic encephalopathy On admission urine toxicology showed: >80.0 Cannabis Screen, >800 Benzodiazepine Patient had to be maintained on restraints due to aggression and threats to pull out his IV lines. Patient was maintained on propofol to maintain a SAS score of 4 while intubated. Patient was also placed on an Ativan drip to ensure that he was adequately sedated as he over came his detoxification phase. QTC was followed on a daily basis. We were mindful to ensure the QTC did not exceed 475. Throughout the admission the patient was supplemented with thiamine PO, multivitamin PO (both via OGT) as part of alcohol withdrawal protocol. Acute hypercapnic respiratory failure likely due to substance ingestion, including marijuana, seroquel and ETOH The Patient was intubated immediately after admission. He remained intubated for about 12 days with multiple failed extubation attempts during the course of the stay due to extreme agitatation which necessitated medical sedation control. Fentanyl patch was administered for sedation and pain relief. Patient continued to improve, was subsequently extubated, passed swallow evaluation and started on oral feeds transferred to general medicine floor to complete the course of treatment. On general medicine floor the patient was medically stable but continued to have suicidal ideation which as outlined above might require inpatient psych service. Aspiration Pneumonia Patient was started initially on vancomycin and upon subsequent sensitivities from lower respiratory culture this was changed to cefazolin 1000 every 8. The patient to grew Staphylococcus aureus beta streptococcus group C which were pansensitive. Successfully completed cefazolin and will be discharged off antibiotics. Rhabdomyolysis CK 568 on admission, this was trended periodically as the patient was admitted. Subsequently did come down as the patient was aggressively hydrated. It is our opinion that the rhabdomyolysis completely resolved. Bacterial Conjunctivitis Patient did have evidence of bacterial conjunctivitis. Erythromycin 1 application 4 was ordered during day 5 and 6 of admission. The ocular symptoms resolved and patient is off antibiotics. Complications: Respiratory failure requiring intubation Allergies: Coded Allergies: Penicillins (UNKNOWN 08/04/16) Significant Procedures: Head CT: No acute intracranial pathology. Lower limb Doppler ultrasound: No evidence of deep venous thrombosis in the bilateral upper extremities. Pertinent Lab Results: Laboratory Tests 01/13 01/12 0632 0620 Hematology CBC w Diff NO MAN DIFF REQ NO MAN DIFF REQ WBC (4.8 - 10.8 /CUMM) 9.1 10.1 RBC (4.70 - 6.10 /CUMM) 4.12 L 4.07 L Hgb (14.0 - 18.0 G/DL) 14.1 13.9 L Hct (42 - 52 %) 41.7 L 40.9 L MCV (80.0 - 94.0 FL) 101.2 H 100.4 H MCH (27.0 - 31.0 PG) 34.3 H 34.1 H RDW (11.5 - 14.5 %) 12.8 12.3 Plt Count (130 - 400 /CUMM) 521 H 484 H MPV (7.4 - 10.4 FL) 8.1 8.3 Gran % (42.2 - 75.2 %) 58.9 65.8 Lymphocytes % (20.5 - 51.1 %) 28.9 22.1 Monocytes % (1.7 - 9.3 %) 7.2 7.8 Eosinophils % (0 - 5 %) 4.6 4.0 Basophils % (0.0 - 2.0 %) 0.4 0.3 Absolute Granulocytes (1.4 - 6.5 /CUMM) 5.4 6.6 H Absolute Lymphocytes (1.2 - 3.4 /CUMM) 2.6 2.2 Absolute Monocytes (0.10 - 0.60 /CUMM) 0.7 H 0.8 H Absolute Eosinophils (0.0 - 0.7 /CUMM) 0.4 0.4 Absolute Basophils (0.0 - 0.2 /CUMM) 0 0 PUBS MCHC (33.0 - 37.0 G/DL) 33.9 34.0 Disposition Summary Disposition Principal Diagnosis: Respiratory failure Polysubstance abuse Depression with suicidal ideation Aspiration pneumonia Additional Diagnosis: PTSD Discharge Disposition: other general hospital Discharge Instructions General Discharge Information Code Status: Full Code Patient's Diet: Navidog diet Patient's Activity: As tolerated Follow-Up Instructions/Appts: Please call and make a follow-up with primary care physician within one week after discharge. Please continue to follow with your behavioral therapy clinician Medications at Discharge Discharge Medications: Start taking the following new medications: Olanzapine (Zyprexa Zydis) 5 MG TAB.RAPDIS 5 Milligram ORAL EVERY SIX HOURS Qty = 30 No Refills Comments: Last Taken: 01/14/17 Time: 12:20 PM Cyanocobalamin (Vitamin B-12) 1,000 MCG TABLET 1,000 Microgram ORAL DAILY Qty = 30 No Refills Comments: Last Taken:01/14/17 Time:8:45 AM Thiamine HCl (Vitamin B-1) 50 MG TABLET 50 Milligram ORAL DAILY Qty = 30 No Refills Comments: Last Taken: 01/14/17 Time: 8:45 AM Multivitamin (One Daily Multivitamin) 1 EACH TABLET 1 Tablet ORAL DAILY Qty = 30 No Refills Comments: Last Taken: 01/14/17 Time: 8:45 AM Nicotine (Nicotine Patch) 7 MG/24 HOUR PATCH.TD24 7 Milligram On the skin DAILY Qty = 10 No Refills Comments: Last Taken: 01/14/17 Time: 9:00 AM Fentanyl (Fentanyl) 12 MCG/HOUR PATCH.TD72 12 Microgram On the skin Q72H Qty = 1 No Refills Comments: Last Taken: 01/13/17 Time: 5:00 PM Haloperidol Lactate (Haloperidol Lactate) 5 MG/ML VIAL 2 Milligram INTRAMUSC DAILY as needed for ANXIETY/AGITATION/INSOMNIA Qty = 10 No Refills Comments: NOT GIVEN IN HOSPITAL Chlordiazepoxide HCl (Chlordiazepoxide HCl) 5 MG CAPSULE 15 Milligram ORAL 0300,1500,2100 Qty = 5 No Refills Instructions: please taper 20% a day Comments: Last Taken: 01/14/17 Time: 3:00 PM Copies To: CATHERINE MCCOLLUM APRN, MD,JAONA March Attending MD Review Statement Documenting Attending: LIDIA LOZANO M.D Other Findings: I have reviewed the discharge summary.
--- NOTE | 2017-01-13 13:20 | Patient Discharge Instructions ---
Discharge Instructions General Discharge Information You were seen/treated for: SEROQUEL OVERDOSE ACUTE HYPERCARBIC RESPIRATORY FAILURE Special Instructions: Please follow up with your in a week Please follow up with your Psychiatrist in a week Please take your medications regularly Whenever you feel suicidal please call the psychaitric service/[phone] immediately. Diet Continue normal diet: Yes Activity Full Activity/No Limits: Yes Activity Self Limited: Yes Acute Coronary Syndrome Inclusion Criteria At DC or during hospital stay patient has or had the following: ACS DIAGNOSIS No Discharge Core Measures Meds if any: Prescribed or Continued at Discharge Meds if any: NOT Prescribed or Continued at Discharge Congestive Heart Failure Inclusion Criteria At DC or during hospital stay patient has or had the following: CHF DIAGNOSIS No Discharge Core Measures Meds if any: Prescribed or Continued at Discharge Meds if any: NOT Prescribed or Continued at Discharge Cerebrovascular accident Inclusion Criteria At DC or during hospital stay patient has or had the following: CVA/TIA Diagnosis No Discharge Core Measures Meds if any: Prescribed or Continued at Discharge Meds if any: NOT Prescribed or Continued at Discharge Venous thromboembolism Inclusion Criteria VTE Diagnosis No VTE Type NONE VTE Confirmed by (Test) NONE Discharge Core Measures - Per Current guidelines, there needs to be overlap - treatment for the first 5 days of Warfarin therapy. - If discharged on Warfarin prior to 5 days of - overlap therapy, the patient will need to be - assessed for post discharge needs including - *Post discharge parental anticoagulation - *Warfarin and/or parental anticoagulation education - *Follow up date to check INR post discharge At least 5 days overlap therapy as Inpatient No Meds if any: Prescribed or Continued at Discharge Note: Overlap Therapy is Warfarin and Anticoagulant Meds if any: NOT Prescribed or Continued at Discharge
[2017-01-13] MEDS ORDERED: ONE DAILY MULT1 EAC2 PO (13:24)
[2017-01-13] MEDS ORDERED: VITAMIN B-121000 MC3 PO (13:24)
[2017-01-13] MEDS ORDERED: VITAMIN B-150 M1 PO (13:24)
[2017-01-13] MEDS ORDERED: ZYPREXA ZYDIS5 M1 PO (13:24)
[2017-01-13 15:03] VITALS: BP 115/76
--- NOTE | 2017-01-13 16:00 | NUR ---
PATIENT MADE SUICIDAL SATEMENTS WHILE WALKING WITH PHYSICAL THERAPY TODAY. DR MARTA REAL AND LESLIE ROACH NOTIFIED.
[2017-01-13 22:50] VITALS: BP 124/67
--- NOTE | 2017-01-14 01:56 | NUR ---
ALERT AND ORIENTED X 3. ON ROOM AIR. NO SHORTNESS OF BREATH VITAL SIGNS STABLE. DENIES CHEST PAIN. + PULSES SKIN C/D/I. WEAK GAIT. ASSIST X 1 W/ RW. SKIN C/D/I PATIENT COMPLAINING OF VOILENT DREAMS WHICH THE PATIENT BELIEVES IS RELATED TO MEDICATIONS. EXPORT FREIGHT MANAGER AWARE. SITTER AT BEDSIDE. WILL CONTINUE TO MONITOR
--- NOTE | 2017-01-14 07:24 | PN- Housestaff ---
LURDSE BUSTAMANTE,DORIS 01/14/17 0723: Subjective Follow-up For: seroquel overdose Subjective: I saw the patient today morning He is doing well. Review of Systems Constitutional: Reports: see HPI. Objective Last 24 Hrs of Vital Signs/I&O Vital Signs Date Time Temp Pulse Resp B/P B/P Pulse O2 O2 Flow FiO2 Mean Ox Delivery Rate 01/13 2250 98.0 65 20 124/67 95 Room Air 01/13 1503 98.3 95 20 115/76 98 Room Air 01/13 1044 Ventilator 30% Intake & Output 01/14 0800 01/14 0000 01/13 1600 Intake Total 240 350 720 Output Total Balance 240 350 720 Intake, Oral 240 350 720 Physical Exam General Appearance: Alert, Oriented X3, Cooperative Skin: No Rashes, No Breakdown HEENT: Atraumatic, PERRLA, EOMI Neck: Supple Cardiovascular: Normal S1, Normal S2, No Murmurs Lungs: Clear to Auscultation, Normal Air Movement Abdomen: Normal Bowel Sounds, Soft, No Tenderness Neurological: Strength at 5/5 X4 Ext, Normal Tone, Sensation Intact Extremities: No Clubbing, No Cyanosis, No Edema Vascular: Normal Pulses, Pulses Symmetrical Current Medications: Current Medications Sig/Earline Start time Last Medication Dose Route Stop Time Status Admin Acetaminophen 1,000 MG Q6P PRN 12/30 0030 AC 01/06 IV 1634 Chlordiazepoxide HCl 16 MG TID 01/14 1000 CAN PO 01/14 2300 Chlordiazepoxide HCl 25 MG .STK-MED ONE 01/13 2303 DC PO 01/13 2304 Chlordiazepoxide HCl 20 MG TID 01/13 1000 DC 01/13 PO 01/13 2201 2309 Chlorhexidine 15 ML TID 01/03 1600 AC 01/13 Gluconate PO 2310 Cyanocobalamin 1,000 MCG DAILY 01/10 1158 AC 01/13 PO 1202 Enoxaparin Sodium 40 MG DAILY 01/10 1200 AC 01/13 SC 1203 Fentanyl Citrate 12 MCG Q72H 01/10 1715 AC 01/13 TOP 1654 Haloperidol 2 MG DAILY PRN 01/09 1430 AC IM Lorazepam 1 MG Q1 NEEDED PRN 01/09 1430 AC 01/13 IV 0233 Magnesium Hydroxide 30 ML DAILY PRN 01/01 0945 AC PO Methylene Blue 1 MG .[INTO OG TUBE] 01/02 1800 AC TOP-INJ Multivitamins 1 TAB DAILY 01/01 1319 AC 01/13 PO 1202 Nicotine 7 MG DAILY 01/11 1000 AC 01/13 TOP 1202 Nystatin 5 ML 4 TIMES/DAY 01/09 1800 DC 01/13 PO 1746 Olanzapine 5 MG Q6 01/01 1832 AC 01/13 PO 1746 Polyethylene Glycol 17 GM DAILY 01/08 1000 AC 01/11 PO 0850 Senna 187 MG AT BEDTIME PRN 01/05 0756 AC 01/10 PO 1002 Thiamine HCl 50 MG DAILY 01/01 1319 AC 01/13 PO 1202 Assessment/Plan Assessment: Patient is a 51 YO male was BIBA to the ER on 12/29/16 after ingesting 40 pills of seroquel (100mg ) -- around 4000mg of seroquel. He was found unresponsive on his home. PMH : Schizoeffective disorder, depression, anxiety, suicidal ideation, polysubstance abuse. He was found to be in Acute hypercapnic respiratory failure secondary to Overdose & polysubstance abuse including ETOH, Marijuana. Intuabated and sedated from 12/29/16 to 01/09/17 despite efforts to wean hime. He was extubated on . He was transfered to general medicine floor on 01/10/17 as he was more stable. Apparently he was very agitated, combative in ICU he was placed on kimberly, 4 point restarints with sitter. He was on tube feeds (jevity 1.2), developed aspiration pneumoina with LRC growing staph aureus started on cefazoline, Bacterial conjunctivitis treated with erythromycin ointment. ~~~~~~~~~~~~~~~~~~~~~~~~~~~~~~~~~~~~~~~~~~~~~~ After transfer on 01/10/17, patient started requesting for seroquel, refused to take all his medications. He shouldnt be given any seroquel as his body already contains lots of seroquel. Awaiting inpatient psychiatry palcement. Current recommendations reduced librium to 16mg tid today, and continuing olanzepine 5mg Q6 -- If not tolerating give IV ativan to calm down as a last resort, also on haldol 2mg IM for agitation. Discharged to another facility for inpatient psychiatry today. Aspiration pneumonia * Resolved Alcohol withdrawl * Off CIWA protocol * Macrocytosis secondary to alcohol intake * Continue folate/multivitamin/thiamine * Librium taper ON. DVT Prophylaxis * SC lovenox Code Status * Full code Problem List: 1. Suicide attempt 2. Polysubstance overdose Pain Ratin Pain Location: n/a Pain Goal: Pain 4 or less Pain Plan: tylenol prn Fentanyl patch Tomorrow's Labs & Rationales: none Consulting Request: Consulting Specialty: Pulmonary Disease Consulting Physician: Dr. Barajas Reason for Consult: Intubation for airway protection LIDIA LOZANO MD 01/14/17 1420: Attending MD Review Statement Attending Statement Attending MD Statement: examined this patient, discuss w/resident/PA/PRODUCTION SUPERVISOR OFF SHIFT, agreed w/resident/PA/PRODUCTION SUPERVISOR OFF SHIFT, reviewed EMR data (avail), discussed with nursing, discussed with case mgmt, amended to note Attending Assessment/Plan: Patient seen and examined. Very jovial. Approximately any distress. No issues overnight reported by nursing staff. Currently awaiting an inpatient bed. He is currently on PEC and cannot sign out of the hospital AGAINST MEDICAL ADVICE. Continue supportive care.
[2017-01-14 08:27] VITALS: BP 110/80
--- NOTE | 2017-01-14 09:47 | PN- Psychiatry ---
See Addendum Assessment/Plan Impression: Identifying Info: 51-year-old AA male brought in by ambulance to [facility] emergency department on [facility] on 12/29/16 status post disclosing to a friend that he was going to kill himself. He was intially unresponsive at home then became combative. Empty liquor and pill bottles were found around him in field. Admitted to CCU and now medicine. SUBJECTIVE "I'm ready to get this over with." Patient reports all he would rather just go home and he does understand the need for psychiatric hospitalization due to serious overdose attempt. He reports that if he is unable to go to [place]'s inpatient unit he would prefer not to go to [facility] as he previously had a negative experience there. He offers no complaints today. Reports he would like ot retunr to his treaters at the [facility] post d/c. Brief ROS Gait: Impaired Sleep: Adequate Appetite: Adequate OBJECTIVE Mental Status Exam Presentation/Appearance: Lying in hospital bed, hospital garb. Calm and cooperative. Orientation: x3 Sensorium: Awake and alert Eye contact: Appropriate Affect: Full range Mood: "good" Depression: Denies Anxiety: Denies Thought Content: - Denies SI/HI, AH/VH, PI. States and also believes they will not kill themselves. - Denies Hopeless/Helpless Thoughts Thought Process: Linear Associations: Appropriate Speech:Normal tone and rate Judgment: Impaired Insight: Impaired Cognition: Memory: Recent deficits due to OD and intubation Attention/Concentration: Grossly intact Fund of Knowledge: Adequate Abstractions:Did not assess MMSE: Did not assess Per medical staff report this patient is medically clear. ASSESSMENT 51-year-old -[place]i male with a h/o schizoaffective d/o and PSA presents status post reported suicide attempt. He has now recovered phsyically and requires inpatient psychiatric hospitalization. Some improvement noted. With benefit from continued antipsychotic mood stabilizing medication. Differential diagnosis Delirium due to multiple eitiologies, resolving Schizoaffective d/o Alcohol use d/o, moderate Cannabis use d/o, moderate Suggestion: 1. Please continue Zyprexa and continue to monitor QTc. 2. Patient is on PEC. Pt may not leave AMA. Plan for inpatient psychiatric admission at [place] or another facility if bed is not availible. 3. Please continue sitter. Thank you for including psychiatry in this case, we will continue to follow. Subjective Subjective: as above Objective Last 24 Hrs of Vital Signs/I&O Current Medications Sig/Earline Start time Last Medication Dose Route Stop Time Status Admin Acetaminophen 1,000 MG Q6P PRN 12/30 0030 AC 01/06 IV 1634 Chlordiazepoxide HCl 16 MG TID 01/14 1000 CAN PO 01/14 2300 Chlordiazepoxide HCl 25 MG .STK-MED ONE 01/13 2303 DC PO 01/13 2304 Chlordiazepoxide HCl 20 MG TID 01/13 1000 DC 01/13 PO 01/13 2201 2309 Chlorhexidine 15 ML TID 01/03 1600 AC 01/14 Gluconate PO 0846 Cyanocobalamin 1,000 MCG DAILY 01/10 1158 AC 01/14 PO 0843 Enoxaparin Sodium 40 MG DAILY 01/10 1200 AC 01/14 SC 0845 Fentanyl Citrate 12 MCG Q72H 01/10 1715 AC 01/13 TOP 1654 Haloperidol 2 MG DAILY PRN 01/09 1430 AC IM Lorazepam 1 MG Q1 NEEDED PRN 01/09 1430 AC 01/13 IV 0233 Magnesium Hydroxide 30 ML DAILY PRN 01/01 0945 AC PO Methylene Blue 1 MG .[INTO OG TUBE] 01/02 1800 AC TOP-INJ Multivitamins 1 TAB DAILY 01/01 1319 AC 01/14 PO 0843 Nicotine 7 MG DAILY 01/11 1000 AC 01/14 TOP 0845 Nystatin 5 ML 4 TIMES/DAY 01/09 1800 DC 01/13 PO 1746 Olanzapine 5 MG Q6 01/01 1832 AC 01/13 PO 1746 Polyethylene Glycol 17 GM DAILY 01/08 1000 AC 01/11 PO 0850 Senna 187 MG AT BEDTIME PRN 01/05 0756 AC 01/10 PO 1002 Thiamine HCl 50 MG DAILY 01/01 1319 AC 01/14 PO 0843 Vital Signs Date Time Temp Pulse Resp B/P B/P Pulse O2 O2 Flow FiO2 Mean Ox Delivery Rate 01/14 827 98.4 78 20 110/80 98 Room Air 01/13 2250 98.0 65 20 124/67 95 Room Air 01/13 1503 98.3 95 20 115/76 98 Room Air 01/13 1044 Ventilator 30% Intake & Output 01/14 1600 01/14 0800 01/14 0000 Intake Total 240 350 Output Total Balance 240 350 Intake, Oral 240 350
[2017-01-14 15:04] VITALS: BP 102/60
[2017-01-14] MEDS ORDERED: NICOTINE PATCH1 EAC1 TOP (16:11)
[2017-01-14] MEDS ORDERED: PERIDEX473 ML PO (16:11)
[2017-01-14] MEDS ORDERED: FENTANYL1 EAC6 TOP (16:11)
[2017-01-14] MEDS ORDERED: HALOPERIDOL5 MG/1 M1 IM (16:11)
[2017-01-14] MEDS ORDERED: CHLORDIAZEPOXIDE5 M1 PO (16:25)
[2017-01-14 18:20] VITALS: BP 102/60
== END 2017-01-14 19:15 | disposition other institution (70) | DRG 812 ==
LOC: ERH 20:32 → ERHI 22:53 → CRI 22:53 → ERH 23:07 → ENRESERV 23:55 → CRI 12-30 02:38 → 2NB 01-10 16:03 → ENPENDDIS 01-14 18:43 → 2NB 01-14 19:15
PROVIDERS: Internal Medicine; Ophthalmology; Pediatrics; Student in an Organized Health Care Education/Training Program; ADMIT Internal Medicine
PROC: 5A1955Z Respiratory Ventilation, Greater than 96 Consecutive Hours (ICD-10-PCS; principal; 2016-12-30)
PROC: 0BH17EZ Insertion of Endotracheal Airway into Trachea, Via Natural or Artificial Opening (ICD-10-PCS; 2016-12-30)
DX: T43.592A Poisoning by other antipsychotics and neuroleptics, intentional self-harm, initial encounter (principal); R40.20 Unspecified coma; J96.02 Acute respiratory failure with hypercapnia; G92 Toxic encephalopathy; J69.0 Pneumonitis due to inhalation of food and vomit; M62.82 Rhabdomyolysis; E87.2 Acidosis; F20.9 Schizophrenia, unspecified; T51.92XA Toxic effect of unspecified alcohol, intentional self-harm, initial encounter; Y92.009 Unspecified place in unspecified non-institutional (private) residence as the place of occurrence of the external cause; H10.9 Unspecified conjunctivitis; F41.8 Other specified anxiety disorders; F17.200 Nicotine dependence, unspecified, uncomplicated; F19.10 Other psychoactive substance abuse, uncomplicated
CPT/HCPCS: 2NBP; 87184; CCU; ERO; 36415; 80307; 81001; 82436; 84425; 87040; 87070; 87086; 87147; 93005; 93010; 93970; 94799; 96361; 96372; 96374; 97110-GO; 97116-GO; 97161-GP; 97530-GO; 99291; G0480; J0131; J0690; J1630; J1644; J1650; J1940; J2060; J2250; J2310; J2920; J3370; J3490; J7040; J7042; J7060; Q9968

== ENCOUNTER 2018-05-15 12:22 | Emergency (ER) | payer OTHER, MEDICARE ==
[~2018-05-15] VITALS: Ht 177.8 cm; Wt 72.6 kg
[~2018-05-15 12:22] MED LIST: CHLORDIAZEPOXIDE5 M1 PO; CLINDAMYCIN HC150 M1 PO; FENTANYL1 EAC6 TOP; HALOPERIDOL5 MG/1 M1 IM; NICOTINE PATCH1 EAC1 TOP; ONE DAILY MULT1 EAC2 PO; PERCOCET 5-3251 EACH PO; PERIDEX473 ML PO; VITAMIN B-121000 MC3 PO; VITAMIN B-150 M1 PO; XANAX0.25 M1 PO; XANAX0.5 M1 PO; ZYPREXA ZYDIS5 M1 PO
[2018-05-15 12:25] VITALS: BP 118/87
[2018-05-15 13:38] LABS: ABSOLUTE BASOPHIL COUNT 0 /CUMM (0.0-0.2); ABSOLUTE EOSINOPHIL COUNT 0.1 /CUMM (0.0-0.7); ABSOLUTE GRANULOCYTE CT 3.8 /CUMM (1.4-6.5); ABSOLUTE LYMPH COUNT 2.2 /CUMM (1.2-3.4); ABSOLUTE MONOCYTE COUNT 0.3 /CUMM (0.10-0.60); BASOPHIL % 0.6 % (0.0-2.0); EOSINOPHIL % 1.7 % (0-5); GRANULOCYTE % 59.4 % (42.2-75.2); HEMATOCRIT 46.1 % (42-52); MEAN CORPUSCULAR HGB CONC 35.3 G/DL (33.0-37.0); MEAN CORPUSCULAR VOLUME 99.1 FL (80.0-94.0); MEAN PLATELET VOLUME 8.4 FL (7.4-10.4); PLATELET COUNT 228 /CUMM (130-400); RBC DISTRIBUTION WIDTH 12.9 % (11.5-14.5); RED BLOOD CELL CT 4.65 /CUMM (4.70-6.10); WHITE BLOOD CELL COUNT 6.4 /CUMM (4.8-10.8)
== END 2018-05-15 17:21 | disposition admitted as inpatient to this hospital (09) ==
LOC: ERH 12:22
PROVIDERS: Physician Assistant Medical
DX: R42 Dizziness and giddiness (principal); E86.0 Dehydration
CPT/HCPCS: 93005; 93010; 99281